=== PATIENT | female | born 1950 | race Caucasian/White ===

== ENCOUNTER 2024-05-10 10:47 | Emergency (ER) | payer MEDICARE, SELFPAY ==
[2024-05-10 11:02] VITALS: BP 167/76; PULSE 59; RESP 16; TEMP 36.3; O2SAT 96; BMI 31.6
--- NOTE | 2024-05-10 11:24 | ED.GENADULT ---
HPI - General Adult General Chief complaint: Back Injury/Pain Stated complaint: RT sided sciatic pain Time Seen by Provider: 05/10/24 10:51 History of Present Illness HPI narrative: This is a 74-year-old female comes in with pain in her right buttock extending down the posterior aspect of her right leg toward her knee. She states that she woke up with these symptoms yesterday. She reports that she did have some sciatica symptoms of about 20 years ago. She does not report any injury event or strenuous activity recently. Her health is otherwise stable. Related Data Home Medications ?Medication ?Instructions ?Recorded ?Confirmed dicyclomine 20 mg tablet 20 mg PO QID 05/10/24 05/10/24 fluocinonide 0.05 % topical gel 1 applic topical QID 05/10/24 05/10/24 folic acid 1 mg tablet 1 mg PO DAILY 05/10/24 05/10/24 hydrochlorothiazide 12.5 mg tablet 12.5 mg PO DAILY 05/10/24 05/10/24 losartan 50 mg tablet 50 mg PO DAILY 05/10/24 05/10/24 lovastatin 20 mg tablet 20 mg PO QPM 05/10/24 05/10/24 metformin 500 mg tablet,extended 1,000 mg PO DAILY 05/10/24 05/10/24 release 24 hr methotrexate sodium 2.5 mg tablet 15 mg PO .thursday05/10/24 05/10/24 sertraline 25 mg tablet 25 mg PO QAM 05/10/24 05/10/24 triamcinolone acetonide 0.1 % applic topical 3XD 05/10/24 topical cream Previous Rx's ?Medication ?Instructions ?Recorded cyclobenzaprine 10 mg tablet 10 mg PO TID #15 tabs 05/10/24 ketorolac 10 mg tablet 10 mg PO Q8H 5 days #15 tabs 05/10/24 methylprednisolone 4 mg tablets in See Rx Instructions PO .COMPLEX 05/10/24 a dose pack (Medrol (Sy)) #21 ea Allergies Allergy/AdvReac Type Severity Reaction Status Date / Time lisinopril AdvReac Intermediate Cough Verified 05/10/24 10:58 Review of Systems Narrative: Constitutional: No fevers, no weight gain or loss. Eyes: No discharge. No vision changes. HENT: No congestion, no sore throat, no ear pain. Cardiovascular: No chest pain, no palpitations. Respiratory: No shortness of breath, no wheezes, no cough. Gastrointestinal: No abdominal pain, no vomiting, no diarrhea. Genitourinary: No dysuria, no hematuria. Musculoskeletal: Normal range of motion. Sciatica pain in the right buttock and right posterior upper leg. Skin: No rashes, no pruritis. Neurological: No dizziness, weakness, sensory change, speech change. Endo/Heme/Allergies: No bruising or bleeding. No polydipsia. Pysch: no suicidality, no anxiety, no insomnia. All other systems reviewed and are negative. [facility] Social History Smoking Status: Never smoker Do you use any of these nicotine containing products: None Second hand tobacco smoke exposure: No How often do you have a drink containing alcohol: monthly or less How many standard drinks containing alcohol do you have on a typical day: 1 or 2 AUDIT-C Alcohol total score: 1 Non-prescribed substance use: denies use service: No Exam Narrative: Exam Narrative: Constitutional: Well-developed, well-nourished, no acute distress. HEENT: Normocephalic, atraumatic. Neck: Normal range of motion. Nontender. Supple. Heart: Intact distal pulses. Lungs: No chest discomfort. No wheezes, rhonchi, or rales. Abdomen: Nontender. Back: Normal range of motion. Extremities: Normal range of motion. No injury. Skin: Intact. No rash. Warm. No erythema or pallor. Neurologic: No altered sensation. No weakness. Alert and oriented. Psychiatric: No suicidality. No anxiety or depression. No insomnia. Nursing notes and vitals signs are reviewed. Const: Vital Signs, click to edit/add: Vital Signs - 24 hr 05/10/24 11:02 Temperature 97.3 F L Pulse Rate [Pulse Oximeter] 59 L Respiratory Rate 16 Blood Pressure [Ri ght Upper Arm] 167/76 H Pulse Oximetry 96 Oxygen Delivery Me thod Room Air Course Vital Signs Vital signs: Initial Vital Signs Temperature 97.3 F L 05/10/24 11:02 Temperature Source Temporal Artery Scan 05/10/24 11:02 Pulse Rate 59 L 05/10/24 11:02 Respiratory Rate 16 05/10/24 11:02 Blood Pressure 167/76 H 05/10/24 11:02 Blood Pressure Mean 106 H 05/10/24 11:02 Blood Pressure Position Sitting 05/10/24 11:02 Pulse Oximetry 96 05/10/24 11:02 Oxygen Delivery Method Room Air 05/10/24 11:02 Vital Signs Temperature 97.3 F L 05/10/24 11:02 Pulse Rate 59 L 05/10/24 11:02 Respiratory Rate 16 05/10/24 11:02 Blood Pressure 167/76 H 05/10/24 11:02 Pulse Oximetry 96 05/10/24 11:02 Oxygen Delivery Method Room Air 05/10/24 11:02 Temperature 97.3 F L 05/10/24 11:02 Pulse Rate 59 L 05/10/24 11:02 Respiratory Rate 16 05/10/24 11:02 Blood Pressure 167/76 H 05/10/24 11:02 Pulse Oximetry 96 05/10/24 11:02 Oxygen Delivery Method Room Air 05/10/24 11:02 Medical Decision Making MDM Narrative Medical decision making narrative: This 74-year-old female comes in with symptoms typical of sciatica. She does not have any recent injury event or strenuous activity that would mandate imaging studies. Her symptoms began yesterday morning. She does not report any back pain. Her pain is located primarily in her right buttock and right posterior upper leg. She does have type 2 diabetes. I did state the potential benefit of a steroid but indicated that this would cause her blood glucose to increase for a while. She did received prescription for Medrol Dosepak, Toradol, and Flexeril. Discharge Plan Discharge Clinical Impression: Sciatica Patient Disposition: Home, Self-Care Condition: Stable Additional Instructions: Take medications as prescribed and needed. Increase activity as tolerated. Follow up with MD return if worsening. Prescriptions: New cyclobenzaprine 10 mg tablet 10 mg PO TID Qty: 15 0RF ketorolac 10 mg tablet 10 mg PO Q8H 5 Days Qty: 15 0RF methylprednisolone [Medrol (Sy)] 4 mg tablets,dose pack See Rx Instructions .ROUTE .COMPLEX Qty: 21 0RF Rx Instructions: orally per package directions No Action losartan 50 mg tablet 50 mg PO DAILY methotrexate sodium 2.5 mg tablet 15 mg PO .thursday lovastatin 20 mg tablet 20 mg PO QPM metformin 500 mg tablet extended release 24 hr 1,000 mg PO DAILY hydrochlorothiazide 12.5 mg tablet 12.5 mg PO DAILY fluocinonide 0.05 % gel 1 applic topical QID triamcinolone acetonide 0.1 % cream topical 3XD dicyclomine 20 mg tablet 20 mg PO QID sertraline 25 mg tablet 25 mg PO QAM folic acid 1 mg tablet 1 mg PO DAILY Stand Alone Forms: MyHealth Info Instructions
== END 2024-05-10 11:45 | disposition home or self-care (01) ==
LOC: ED 12:09
PROVIDERS: Emergency Provider Emergency Medicine Emergency Medical Services
DX: M54.31 Sciatica, right side (principal)
CPT/HCPCS: 99283; 99284

== ENCOUNTER 2024-12-01 13:00 | Outpatient (RCR) | payer MEDICARE, SELFPAY ==
--- NOTE | 2024-09-27 15:17 | PT.OPEX ---
PT [place] Outpatient Eval PT [facility] Outpatient Eval Start: 09/27/24 10:15 Freq: Status: Active Protocol: Document 09/27/24 10:15 MRS (Rec: 09/27/24 15:12 MRS No Response) E-signed By Annemarie Conroy DPT Physical Therapy Outpatient Evaluation Insurance Information Recert Due Date 12/25/24 Insurance Name [employer] Medical Diagnosis Osteoarthritis R knee Treating Diagnosis M25.562 Pain in Knee Right M62.81 Muscle Weakness Imaging Report Information R Knee XR 04/02: Tricompartmental degenerative disease Referring MD Alfonso Cramer MD Subjective Preferred Name Cailin Subjective Initial subjective: Cailin has been having right knee pain for ~20 years but experienced a fall prior to and has had increased knee soreness. Cailin reports most difficulty going up and down stairs due to weakness. Cailin is independent with her mobility. Aggravating factors: stairs specifically going down stairs , getting up from floor, kneeling, weakness Alleviating factors: avoiding activities PMH: DM II, R RCR, B shoulder pain, edema, memory problem, tremor, neuropathy, OA in knees and hips, osteopenia, medication allergies, L foot fracture ~ 10 years ago Work status: retired Pt goals: strengthen knees to alleviate some of the pain [email or web address] access code: [email or web address] Pain Comments currently 0/10; at worst 8/10 going down the stairs. Date of Last Physician Visit 09/13/24 Current Work Status Retired Precautions Weight Bearing Status Full Weight Bearing Therapy Limitations/Systems Review Not Limited Objective Range of Motion LE ROM (R/L): -Knee Flx: (131/136) -Knee Ext: (2/-1) JAMESON: positive on Right for tightness and pain Strength LE Strength (R/L): -Knee Ext: R: 4/5, L: 5/5 -Knee Flex: R: 4+/5, L: 5/5 -Hip Abd: R: 4-/5, L: 4- /5 -Hip Add: R: 5/5, L: 5/5 -Hip Ext: R: 4-/5, L: 4-/5 -Hip Flx: R: 5/5, L: 5/5 Ankle Strength (R/L): deferred due to right ankle sprain Swelling (5 cm above, jt line, 5 cm below) R: 43.5cm, 41cm, 36.25cm L: 42.5cm, 38cm, 36.5cm Palpation Appears to have left pelvic upslip compared to right comparing ASIS, left foot pes planus > right foot. R patella in lateral position with decreased mobility compared to left patella Balance & Gait varus positioning with decreased heel strike on right but pt reported right ankle inversion sprain 2 weeks ago Other/Pertinent Objective Knee Ligamentous: - all negative for ligamentous involvement Knee Meniscus: -Yan?s: negative Muscle Length: - Hamstrings bilaterally ~85 degrees -JAMESON- positive on right for tightness and pain Functional Test Performed & Score LEFS: 40/80 Assessment Assessment/Impression Patient is a 74 year old male/ female presenting to physical therapy for evaluation and treatment of osteoarthritis of right knee to decrease pain and increase strength. Patient presents with impaired bilateral hip and knee strength, slightly decreased R knee ROM compared to left, right knee swelling, impaired functional mobility, and pain. These impairments are limiting the patients ability to ascend/descend stairs, kneel, and get up from the floor. Patient appears motivated to participate in PT and presents with good prognosis to improve mobility, strength, proprioception and return to functional activities with skilled physical therapy intervention. Educated patient on proper form and muscle activation throughout session in order to optimize muscle function and proper body mechanics. Primary Functional Limitations pain, weakness, muscle endurance, posture Plan of Care Rehabilitation Potential Good Physical Therapy Goals STG's to be met in 2-4 weeks: 1.) Pt will report pain at 6/ 10 or less at worst 2.) Pt will increase bilateral hip abduction strength to 4/5 or greater in order to increase hip stabilization. 3.) Pt will be independent and compliant with HEP. LTG's to be met in 8-12 weeks: 1.) Pt will report a decrease in pain to 4/10 or less at worst. 2.)Pt will demonstrate full and pain free knee ROM? 3.) Pt will demonstrate B LE strength at 4+/5 or greater. 4.) Pt will be able to descend stairs without pain. 5.) Pt will have a decrease in right knee swelling by 2 cm or more at joint line. Coordination/Communication With Referral Source Treatment Plan/Direct Interventions Ice/Cold/Vasopneumatic, Neuromuscular Re-ed, Therapeutic Activities, Therapeutic Exercises Frequency/Duration 1-2x/week for 8-12 weeks Patient Will Be Discharged From Therapy Completion of LTG(s),Skills Plateau,Independent w/HEP, Independently Progressing Evaluation Billing Untimed Code Treatment Minutes 35 PT Eval No Charge No Complexity Low Certification Information Initial Certification Date 09/27/24 Ending Certification Date 12/25/24 Provider Signature Required Yes Provider Signature Shows Agreement With POC & Medical Necessity Physician NPI Number Write NPI# Here Physician Comment/Change : Physician Signature & Date Requested Please Sign/Date Here
== END 2025-03-17 07:31 | disposition home or self-care (01) ==
PROVIDERS: Visit Provider Orthopaedic Surgery Sports Medicine
DX: M17.11 Unilateral primary osteoarthritis, right knee (principal); M62.81 Muscle weakness (generalized); Z51.89 Encounter for other specified aftercare
CPT/HCPCS: 97110; 97112; 97161; 97530

== ENCOUNTER 2025-01-22 08:41 | Emergency (ER) | payer MEDICARE, SELFPAY ==
--- OUTSIDE RECORDS SUMMARY | 2021-02-01 04:01 | XMS_ITS | Continuity of Care Document ---
Author Organization [facility] Address [address] [address] [place] [address] Phone Care Team Providers Care Supervisor Weaving Name Role Phone Yuniel Hanley CRNA Unavailab le Allergies, Adverse Reactions, Alerts Substance Reaction Status Criticality lisinopril cough Active No Information Medications Medication Instructions Dosage Effective Dates (start - stop) Status Comments sertraline 25 mg tablet take 1 tablet by oral route every day 25 MG - Active triamcinolone acetonide 0.1 % topical cream apply by topical route every day a thin layer to the affected area(s) Not Available - Active halobetasol propionate 0.05 % topical cream apply by topical route every day a thin layer to the affected area(s) do not exceed 50 grams per week or 2 weeks duration 0.00 - Active Calcium 500 + D 500 mg (1,250 mg)-400 unit tablet take 3 by oral route every day 3 - Active Fish Oil 1,000 mg (120 mg-180 mg) capsule take 1 by Oral route every day 1 - Active folic acid 1 mg tablet take 1 tablet by oral route every day 1 MG - Active metformin 500 mg tablet take 2 Tablet by ORAL route every day 1000 MG - Active methotrexate sodium 2.5 mg tablet take 5 Tablet by oral route every week 12.5 MG - Active omeprazole 20 mg tablet,delayed release take 1 Tablet by Oral route every day as needed 1 Tablet - Active clobetasol 0.05 % topical cream apply by topical route 2 times every day as needed to affected areas Not Available - Active lovastatin 20 mg tablet take 1 tablet by oral route every day with the evening meal 20 MG - Active losartan 50 mg Tab take 1 tablet (50MG) by oral route every day 50 MG - Active Enteric Coated Aspirin 81 mg Tab, Delayed Release one tablet a day - Active hydrochlorothiazide 25 mg Tab one tablet a day - Active dicyclomine 20 mg tablet take 1 tablet b y oral route 4 times every day 20 MG - No Longer Active mometasone 0.1 % topical cream apply by topical route every day a thin layer to the affected area(s) 0.00 - No Longer Active ammonium lactate 12 % topical cream apply by Topical route as needed Not Available - No Longer Active Procedures Procedure Date Colonoscopy Flex; W/remov Les- Colonoscopy Flex; W/bx 1/mx Ugi Endo; W/bx 1/mx Level Iv-surg Path Gross/micro 21 Telephone E&M II 11-20 Min MD BLANCA Telephone E&M I 5-10 Min MD BLANCA Telephone E&M II 11-20 Min MD BLANCA Telephone E&M II 11-20 Min MD BLANCA Offic/outpt E&m Estab Mod-nm 4 19 Offic/outpt E&m Estab Mod-nm 4 19 Offic/outpt E&m Estab Mod-nm 4 18 Offic/outpt E&m Estab Mod-nm 4 18 Offic/outpt E&m Estab Mod-[facility] 18 Offic/outpt E&m Estab Mod-nm 4 17 Offic/outpt E&m Estab Mod-nm 4 17 Offic/outpt E&m Estab Mod-nm 2 17 Offic/outpt E&m Estab Mod-hi 4 17 Offic/outpt E&m Estab Mod-hi 4 16 Offic/outpt E&m Estab Mod-hi 4 16 Offic/outpt E&m Estab Mod-hi 2 16 Offic/outpt E&m Estab Mod-hi 4 16 Offic/outpt E&m Estab Mod-hi 2 16 Breath Test Fructose Offic/outpt E&m Estab Mod-hi 2 15 Breath Kit Given Offic/outpt E&m Estab Mod-hi 2 15 Colonoscopy Flex; W/bx 1/mx Level Iv-surg Path Gross/micro 15 Offic/outpt E&m Estab Mod-hi 2 15 Routine Serum Collection Gg; Iga, Igd, Igg, Igm, Ea Bld Ct; Hg/pltlt Ct Auto/compl 15 Comp Metabolic Panel Medical nutrition therapy, initial, each 15 minutes Offic/outpt E&m Estab Low-mod 4 Colonoscopy Flex; Dx (apr Pro) 14 Offic/outpt E&m Estab Mod-hi 2 14 Offic/outpt E&m Estab Mod-hi 2 13 Offic/outpt E&m Estab Mod-hi 2 11 G8447 Sigmoidoscopy Flex; W/bx 1/mx 1 Level Iv-surg Path Gross/micro 11 Offic/outpt E&m Estab Mod-hi 2 10 [id number] Offic Cons New/estab Mod 40 Mi 09 [id number] Colonoscopy Flex; Dx (apr Pro) 08 Advance Directives Directive Yes / No Effective Date File Name No Information Encounters Encounter Description Practice Location Reason(s) For Visit Diagnoses Date Provider Providers Copied on Encounter [facility], [address] [address], [place], [id number], [place] tel:[phone] [facility] No Information 1 Talon Brice. [address] [facility], [facility] [address], [place], [place], [address], [place]. tel:[phone] Referring Provider: Shawn Ramsey MD, [address] [facility] [address], [place], [address] . tel:[phone] [facility], [address] [address], [place], [id number], [place] tel:[phone] [facility] Diarrhea, unspecifiedIr ritable bowel syndrome with diarrheaGastr opathyColorec gilberto polypsDiverti culosisDiarrh ea, unspecifiedPe rsonal history of colonic polypsBenign neoplasm of descending colonDvrtclos of lg int w/o perforation or abscess w/o bleedingDiarr hea, unspecifiedDv rtclos of lg int w/o perforation or abscess w/o bleedingPerso nal history of colonic polyps 1 Braulio Escobar. [address] [facility], [address], [id number], [place]. tel:[phone] Referring Provider: Referral Self, USE FOR SELF REFERRALS. Telephone E&M II 11-20 Min BLANCA [facility], [address] [address], [place], [id number], [place] tel:[phone] [facility] GI Symptoms or Concerns (chief complaint) Diarrhea, unspecified type 1 Sanjay Núñez. [address] [facility], [facility] [address], [place], [place], [address], [place]. tel:[phone] Referring Provider: Referral Self, USE FOR SELF REFERRALS. [facility], [address] [address], [place], [address], [place] tel:[phone] [facility] No Information 1 Abdirizak Rios. [address] [facility], [facility] [address], [place], [address], [place]. tel:[phone] Telephone E&M I 5-10 Min BLANCA [facility], [address] [address], [place], [id number], [place] tel:[phone] [facility] GI Symptoms or Concerns (chief complaint) Diarrhea, unspecified typeIrritable bowel syndrome with diarrhea Fe-0 1 Sanjay Núñez. [address], [id number], [place]. tel:[phone] Referring Provider: Referral Self, USE FOR SELF REFERRALS. Telephone E&M II 11-20 Min BLANCA [facility], [address] [address], [place], [id number], [place] tel:[phone] [facility] Additional Narrative (chief complaint)C omment (chief complaint) Irritable bowel syndrome with constipationC olon cancer screening 0 Sanjay Núñez. [address] [place] [address], [id number], [place]. tel:[phone] Referring Provider: Referral Self, USE FOR SELF REFERRALS. Telephone E&M II 11-20 Min BLANCA [facility], [address] [address], [place], [address], [place] tel:[phone] [facility] GI Symptoms or Concerns (chief complaint) Irritable bowel syndrome with diarrhea 0 Sanjay Núñez. [facility] [address], [address], [place]. tel:[phone] Referring Provider: Referral Self, USE FOR SELF REFERRALS. [facility], [address] [address], [place], [address], [place] tel:[phone] [facility] No Information 0 Abdirizak Rios. [address] [facility], [address], [id number], [place]. tel:[phone] Offic/outpt E&m Estab Mod-hi 4 [facility], [address] [address], [place], [address], [place] tel:[phone] [facility] GI Symptoms or Concerns (chief complaint) Irritable bowel syndrome with diarrheaDieta ry counseling and surveillance 9 Sanjay Núñez. [address] [facility], [facility] [address], [place], [place], [address], [place]. tel:[phone] Referring Provider: Mariola Lobo, [address], [place], [address]. tel:[phone] Offic/outpt E&m Estab Mod-hi 4 [facility], [address] [address], [place], [place], [address], [place] tel:[phone] [facility] GI Symptoms or Concerns (chief complaint) Irritable bowel syndrome with diarrheaDieta ry counseling and surveillanceE levated blood-pressur e reading, w/o diagnosis of htn 9 Sanjay Núñez. [address] [facility], [facility] [address], [place], [place], [address], [place]. tel:[phone] Referring Provider: Mariola Lobo, [address], [place], [address]. tel:[phone] Offic/outpt E&m Estab Mod-hi 4 [facility], [address] [address], [place], [place], [address], [place] tel:[phone] [facility] GI Symptoms or Concerns (chief complaint) Irritable bowel syndrome with diarrheaDieta ry counseling and surveillance 8 Sanjay Núñez. [address] [facility], [address], [place], [place], [address], [place]. tel:[phone] Referring Provider: Referral Self, USE FOR SELF REFERRALS. Offic/outpt E&m Estab Mod-hi 4 [facility], [address] [address], [place], [place], [address], [place] tel:[phone] [facility] GI Symptoms or Concerns (chief complaint) Irritable bowel syndrome, unspecified typeDietary counseling and surveillance 8 Sanjay Núñez. [address] [facility], [facility] [address], [place], [address], [place]. tel:[phone] Referring Provider: Referral Self, USE FOR SELF REFERRALS. Offic/outpt E&m Estab Mod-hi 4 [facility], [address] [address], [place], [place], [address], [place] tel:[phone] [facility] GI Symptoms or Concerns (chief complaint) Irritable bowel syndrome with diarrhea 8 Sanjay Núñez. [address] [facility], [facility] [address], [place], [address], [place]. tel:[phone] Referring Provider: Referral Self, USE FOR SELF REFERRALS. Offic/outpt E&m Estab Mod-hi 4 [facility], [address] [address], [place], [place], [address], [place] tel:[phone] [facility] GI Symptoms or Concerns (chief complaint) Irritable bowel syndrome with diarrhea 7 Sanjay Núñez. [address] [facility], [facility] [address], [address], [place]. tel:[phone] Referring Provider: Referral Self, USE FOR SELF REFERRALS. Offic/outpt E&m Estab Mod-hi 4 [facility], [address] [address], [place], [place], [address], tel:[phone] [facility] GI Symptoms or Concerns (chief complaint) Constipation, unspecified constipation type 7 Sanjay Núñez. [address] [facility], [facility] [address], [place], [address], [place]. tel:[phone] Referring Provider: Referral Self, USE FOR SELF REFERRALS. Offic/outpt E&m Estab Mod-hi 2 [facility], [address] [address], [place], [place], [address], [place] tel:[phone] [facility] GI Symptoms or Concerns (chief complaint) Mixed irritable bowel syndromeDiarr hea, unspecified typeConstipat ion, unspecified constipation typeDietary counseling and surveillanceE levated blood-pressur e reading, w/o diagnosis of htn 7 Glynn Yuen. [address] [facility], [facility] [address], [place], [address], [place]. [phone] Referring Provider: Referral Self, USE FOR SELF REFERRALS. Offic/outpt E&m Estab Mod-hi 4 [facility], [address] [address], [place], [place], [address], [place] tel:[phone] [facility] GI Symptoms or Concerns (chief complaint) Constipation, unspecified constipation typeAbdominal pain, unspecified locationDiarr heaDietary counseling and surveillanceE levated blood-pressur e reading, w/o diagnosis of htn 7 Sanjay Núñez. [address] [facility], [facility] [address], [place], [address], [place]. [phone] Referring Provider: Referral Self, USE FOR SELF REFERRALS. Offic/outpt E&m Estab Mod-hi 4 [facility], [address] [address], [place], [place], [address], [place] tel:[phone] [facility] GI Symptoms or Concerns (chief complaint) Irritable bowel syndrome with diarrhea 6 Sanjay Núñez. [address] [facility], [facility] [address], [place], [address], [place]. [phone] Referring Provider: Mariola Lobo, [address] [place], [address]. tel:[phone] Offic/outpt E&m Estab Mod-hi 4 [facility], [address] [address], [place], [place], [address], [place] tel:[phone] [facility] GI Symptoms or Concerns (chief complaint) Irritable bowel syndrome, unspecified type 6 Sanjay Núñez. [address] [facility], [facility] [address], [place], [address], [place]. [phone] Referring Provider: Mariola Lobo, [address] , [place], [address]. tel:[phone] Offic/outpt E&m Estab Mod-hi 2 [facility], [address] [address], [place], [place], [address], [place] tel:[phone] [facility] GI Symptoms or Concerns (chief complaint) DiarrheaDieta ry counseling and surveillanceE levated blood-pressur e reading, w/o diagnosis of htn 6 Sanjay Núñez. [address] [facility], [facility] [address], [place], [address], [place]. tel:[phone] Referring Provider: Mariola Lobo, [address], [place], [address]. tel:[phone] Offic/outpt E&m Estab Mod-hi 4 [facility], [address] [address], [place], [place], [address], [place] tel:[phone] [facility] GI Symptoms or Concerns (chief complaint) DiarrheaGener alized abdominal painIrritable bowel syndrome with diarrhea 6 Sanjay Núñez. [address] [facility] [address], [place], [address], [place]. tel:[phone] Referring Provider: Mariola Lobo, [address] [facility] [address], [place], [address]. tel:[phone] Offic/outpt E&m Estab Mod-hi 2 [facility], [address] [address], [place], [place], [address], [place] tel:[phone] [facility] GI Symptoms or Concerns (chief complaint) Irritable bowel syndrome with diarrheaDieta ry counseling and surveillanceE levated blood-pressur e reading, w/o diagnosis of htn 6 Edstrom [facility]AVE Yanez. [address] [facility], [facility] [address], [place], [address], [place]. tel:[phone] Referring Provider: Mariola Lobo, [address] , [place], [address]. tel:[phone] [facility], [address] [address], [place], [address], [place] tel:[phone] [facility] No Information 6 Edstrlionel Yanez. [address] [facility], [facility] [address], [place], [address], [place]. [phone] Offic/outpt E&m Estab Mod-hi 2 [facility], [address] [address], [place], [address], [place] tel:[phone] [facility] GI Symptoms or Concerns (chief complaint) Irritable bowel syndrome with constipation and diarrhea Edstrlionel Yanez. [address] [facility] [address], [place], [address], [place]. tel:[phone] Referring Provider: Mariola Lobo, [address] [place], [address]. tel:[phone] [facility], [address] [address], [place], [place], [address], [place] tel:[phone] [facility] No Information 5 Edstrlionel ACOSTA Renata. [address] [place] [address], [address], [address], [place]. tel:[phone] Referring Provider: Referral Self, USE FOR SELF REFERRALS. Offic/outpt E&m Estab Mod-hi 2 [facility], [address] [address], [place] [facility] [place], [address], [place] tel:[phone] [facility] GI Symptoms or Concerns (chief complaint) DiarrheaDieta ry counseling and surveillanceE ssential (primary) hypertension 5 Marlotrlionel Yanez. [facility], [facility] [address], [place], [address], [place]. tel:[phone] Referring Provider: Mariola Lobo, [address] [facility] [address], [place], [address]. tel:[phone] [facility], [address] [address], [place], [address], [place] tel:[phone] [facility] Diarrhea, unspecifiedCh deo in bowel habitBenign neoplasm of cecumChange in bowel habitDiarrhea , unspecified 5 Gabriella Jimenez. [address] [facility], [address], [place], [place], [address], [place]. tel:[phone] Referring Provider: Referral Self, USE FOR SELF REFERRALS. [facility], [address] [address], [place], [address], [place] tel:[phone] [facility] Diarrhea 5 No Information Referring Provider: Mariola Lobo, [address], [place], [address]. tel:[phone] [facility], [address] [address], [place], [address], [place] tel:[phone] [facility] Change in bowel habit 5 No Information Referring Provider: Referral Self, USE FOR SELF REFERRALS. Offic/outpt E&m Estab Mod-hi 2 [facility], [address] [address], [place], [address], [place] tel:[phone] [facility] GI Symptoms or Concerns (chief complaint) Change in bowel habitsIrritab le bowel syndrome with constipationD ietary Surveil/couns elElev Bl Pres W/o HypertnElevat ed blood-pressur e reading, without diagnosis of hypertensionD ietary counseling and surveillanceI rritable bowel syndrome without diarrheaChang e in bowel habit 5 No Information Referring Provider: Referral Self, USE FOR SELF REFERRALS. [facility], [address] [address], [place], [address], [place] tel:[phone] [facility] Irritable Bowel SyndromeChang e In Bowel Habits 4 Josep Kelly. [address] [facility], [address], [place], [place], [address], [place]. tel:[phone] Referring Provider: Mariola Lobo, [address] , [place], [address]. tel:[phone] Offic/outpt E&m Estab Low-mod [facility], [address] [address], [place], [address], [place] tel:[phone] [facility] Constipation UnspecifiedCo nstipation UnspecifiedIr ritable Bowel Syndrome 4 No Information Referring Provider: Mariola Lobo, [address], [place], [address]. tel:[phone] [facility], [address] [address], [place], [address], [place] tel:[phone] [facility] No Information 4 No Information Referring Provider: Mariola Lobo, [address] , [place], [address]. tel:[phone] Offic/outpt E&m Estab Mod-hi 2 [facility], [address] [address], [place], [address], [place] tel:[phone] [facility] Irritable Bowel SyndromeIrrit able Bowel SyndromeConst ipation UnspecifiedPe rsonal History Colon Polyps 4 No Information Referring Provider: Mariola Lobo, [address] , [place], [address]. tel:[phone] Offic/outpt E&m Estab Mod-hi 2 [facility], [address] [address], [place], [address], [place] tel:[phone] [facility] Irritable Bowel Syndrome (chief complaint) Irritable Bowel SyndromeIrrit able Bowel SyndromeAbdom inal Pain, UnspecifiedCo nstipation Unspecified 3 No Information Referring Provider: Mariola Lobo, [address] , [place], [address]. tel:[phone] Offic/outpt E&m Estab Mod-hi 2 [facility], [address] [address], [place], [address], [place] tel:[phone] [facility] Follow up from Flex sig (chief complaint)A bdominal pain (chief complaint) Irritable Bowel SyndromeIrrit able Bowel Syndrome 1 No Information Referring Provider: Mariola Lobo, [address], [place], [address]. tel:[phone] [facility], [address] [address], [place], [address], [place] tel:[phone] [facility] Change In Bowel HabitsAbdomin al Pain, UnspecifiedCh deo In Bowel HabitsAbdomin al Pain, Unspecified 1 Randell Lopez. [address] [place] [address], [facility] [address], [place], [address], [place]. tel:[phone] Referring Provider: Mariola Lobo, [address], [place], [address]. tel:[phone] Offic/outpt E&m Estab Mod-hi 2 [facility], [address] [address], [place], [place], [address], [place] tel:[phone] [facility] Abdominal pain (chief complaint) Irritable Bowel Syndrome 0 Randell Lopez. [address] [facility], [facility] [address], [place], [address], [place]. tel:[phone] Referring Provider: Mariola Lobo, [address], [place], [address]. tel:[phone] Offic Cons New/estab Mod 40 Mi [facility], [address] [address], [place], [address], [place] tel:[phone] [facility] Irritable Bowel Syndrome 9 Randell Lopez. [address] [place] [address], [facility] [address], [place], [address], [place]. tel:[phone] [facility], [address] [address], [place], [place], [address], [place] tel:[phone] [facility] Colon Cancer ScreeningPers onal History Colon Polyps 8 Javier Mendoza. [address] [facility], [facility] [address], [place], [place], [address], [place]. tel:[phone] Family History Family Member Type Diagnosis Age At Onset Mother Problem (finding) congestive heart failur e Father Problem (finding) Brother Problem (finding) Alive and well Brother Problem (finding) GERD Brother Problem (finding) No Family hist ory of No history of Arthritis Mother Problem (finding) Arthritis Sister Problem (finding) Alive and well Immunizations Vaccine Date Status Comments SARS-COV-2 (COVID-19) vaccin e, mRNA, spike protein, LNP, preservative free, 30 mcg/0.3mL dose administered Note: [facility] bi-direct ional interface ; Source: Other Registry SARS-COV-2 (COVID-19) vaccin e, mRNA, spike protein, LNP, preservative free, 30 mcg/0.3mL dose administered Note: [facility] bi-direct ional interface ; Source: Other Registry influenza, seasonal vaccine, quadrivalent, adjuvanted, .5mL dose, preservative free administered Note: [facility] bi-di rectional interface ; Source: Other Registry zoster vaccine recombinant administered N ote: [facility] bi-directional interface ; Source: Other Registry Seasonal trivalent influenza vaccine, adjuvanted, preservative free administered Note: [facility] bi-direct ional interface ; Source: Other Registry zoster vaccine recombinant administered N ote: [facility] bi-directional interface ; Source: Other Registry Seasonal trivalent influenza vaccine, adjuvanted, preservative free administered Note: [facility] bi-direct ional interface ; Source: Other Registry Influenza, injectable, MDCK, preservative free Flucelvax Quad 2017-2018Y administered Source: Other Provid er Seasonal trivalent influenza vaccine, adjuvanted, preservative free administered Note: [facility] bi-direct ional interface ; Source: Other Registry Influenza, injectable, quadrivalent, preservative free, 3 yrs or older administered Note: Invalid docum ented admin date was . ; Source: Other Provider tetanus and diphtheria toxoi ds, adsorbed, preservative free, for adult use (5 Lf of tetanus toxoid and 2 Lf of diphtheria toxoid) administered Note: [facility] bi-direct ional interface ; Source: Other Registry Influenza, injectable, quadrivalent, preservative free, 3 yrs or older administered Source: Other Provi maribel influenza, high dose seasona l, preservative-free administered Note: [facility] bi-direct ional interface ; Source: Other Registry influenza, high dose seasona l, preservative-free administered Note: [facility] bi-direct ional interface ; Source: Other Registry Prevnar administered Note: [facility] bi-d irectional interface ; Source: Other Registry Pneumococcal conjugate PCV administere d Source: Other Provider Pneumo (2 yrs or older)(PPV) administered Source: Other Provider Influenza virus vaccine, injectable, quadrivalent, split virus, preservative free, 3 years or older Fluarix Quad administered Source: Other Provid er influenza, high dose seasona l, preservative-free administered Note: [facility] bi-direct ional interface ; Source: Other Registry Influenza virus vaccine, injectable, quadrivalent, split virus, preservative free, 3 years or older Fluarix Quad administered Source: Other Provid er zoster vaccine, live administered Note: M [facility] bi-directional interface ; Source: Other Registry Zoster administered Source: Other P rovider Pneumovax 23 administered Note: [facility] bi-d irectional interface ; Source: Other Registry Pneumo (2 yrs or older)(PPV) administered Source: Other Provider Influenza, seasonal, injectable, preservative free administered Note: [facility] bi-directional interface ; Source: Other Registry Novel [id number], all formulations administered Note: [facility] bi-direct ional interface ; Source: Other Registry Influenza, seasonal, injectable administe red Note: [facility] bi- directional interface ; Source: Other Registry tetanus toxoid, reduced diphtheria toxoid, and acellular pertussis vaccine, adsorbed administered Note: [facility] bi-direct ional interface ; Source: Other Registry Influenza, seasonal, injectable administe red Note: [facility] bi- directional interface ; Source: Other Registry Payers Payer name Insurance type Covered republican ID Authorlisa parra(s) [employer] MB [id number] Social History Type Description Quantity Date Captured Comments Sex Female Smoking Status No Information Chief Complaint And Reason For Visit No Information Reason For Referral Reason For Referral No Information Plan Of Treatment Date Type Action Status Goal Lifestyle education regardin g diet completed Goal Lifestyle education regardin g diet completed Goal Lifestyle education regardin g diet completed Goal Lifestyle education regardin g diet completed Goal Lifestyle education regardin g diet completed Goal Lifestyle education regardin g diet completed Goal Lifestyle education regardin g diet completed Goal Lifestyle education regardin g diet completed Goal Lifestyle education regardin g diet completed Goal Lifestyle education regardin g diet completed Referral Ordered: EGD Appointment date/timeframe: -today ordered Referral Ordered: referred to pelvic floor center Today Appointment date/timeframe: 09/02/2017 ordered Referral Ordered: follow-up visit with Niya Grace NP--[facility] 6-8 weeks Appointment date/timeframe: 6-8 weeks ordered Referral Ordered: Xray Abdomen; Limited (AP View Only) (KUB) Appointment date/timeframe: 07/10/2016 ordered Referral Ordered: Breath Test Fructose Appointment date/timeframe: 07/26/2015 ordered Referral Ordered: Colonoscopy Appointment date/timeframe: 06/01/2015 ordered Referral Ordered: follow-up visit with Leticia Moody RD low FODMAP diet 6 Weeks Appointment date/timeframe: 03/06/2014 ordered Future Order: Lab Order C diffic ile Toxin Gene BECCA ([id number]), Sent on: Sent History Of Present Illness Encounter Date Complaint History Of Prese nt Illness GI Symptoms or Concerns Cailin pak is a 70-year-old female who is present today for a telephone consult. She has verified her birthdate, address and has consented to this visit. 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 She has been using imodium daily and will sometimes have a day without a bowel movement. She typically has multiple bowel movements every morning then she is fine for the rest of the day. A colonoscopy and EGD have been ordered but delayed due to planned rotator cuff surgery January 15. Prior therapies have included colestipol, Lomotil, hyoscyamine, rifaximin, Viberzi, metronidazole. She had an abdominal x-ray January 01, 2017, which showed moderate amount of stool in the colon despite her bowel frequency. When given MiraLax, she developed significant diarrhea. Serological workup has been unremarkable including CMP, CBC, celiac panel, thyroid cascade, and stool testing. Stool for qualitative fecal fat was normal. Colonoscopy September 2014 with MAC sedation revealed a tubular adenoma, otherwise exam was normal. Random colon biopsies were normal. In 2013, she underwent CT colography due to an incomplete colonoscopy with indication of adenomatous polyps and constipation. The colonoscopy could not be completed due to difficulty passing the scope from the rectum to the transverse colon. The imaging showed no colonic polyp, mass, or stricture. No AAA. She was noted to have a small sliding esophageal hiatal hernia and gastroesophageal reflux disease. She did also have finding of a 3 mm right lung nodule, thought to be benign. Abdominal x-ray in July 2016 was consistent with constipation with overflow diarrhea. Repeat imaging in 2017 was more consistent with diarrhea. She has never had an upper endoscopy. GI Symptoms or Concerns Cailin pak is a 70-year-old female who is present today for a telephone consult. 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 She is alone, she is able to talk and has consented to this visit.Her symptoms really have not changed much over the last few years that she has been following with [facility]. She has had previous incidence of overflow diarrhea, which does not seem to be her problem at this time. She takes dicyclomine a couple of times per day when she remembers to take it and has been using Metamucil 1 tablespoon almost every day. She has bowel movements about 3 to 4 stools per day without urgency. she has been using imodium 1/2 to 1 tablet daily. Previously using one tablet daily would prevent a bowel movement the next day but currently the imodium firms up the stool. She denies significant abdominal pain. Her situation is further complicated by her poor memory. She denies black or bloody stools. She has also been informed by her insurance company that they will no longer cover dicyclomine . She was on trazodone, which she was using as needed and discontinued this over the summer.Her bowel movements are mostly in the morning. The stools can be loose to firm, but never hard. She rates her stools as a type 5 according to the Alva stool scale. She follows a lactose-free diet. She has not had any weight loss but today reports some weight gain.Prior therapies have included colestipol, Lomotil, hyoscyamine, rifaximin, Viberzi, metronidazole. She had an abdominal x-ray January 01, 2017, which showed moderate amount of stool in the colon despite her bowel frequency. When given MiraLax, she developed significant diarrhea. Serological workup has been unremarkable including CMP, CBC, celiac panel, thyroid cascade, and stool testing. Stool for qualitative fecal fat was normal. Colonoscopy September 2014 with MAC sedation revealed a tubular adenoma, otherwise exam was normal. Random colon biopsies were normal. In 2013, she underwent CT colography due to an incomplete colonoscopy with indication of adenomatous polyps and constipation. The colonoscopy could not be completed due to difficulty passing the scope from the rectum to the transverse colon. The imaging showed no colonic polyp, mass, or stricture. No AAA. She was noted to have a small sliding esophageal hiatal hernia and gastroesophageal reflux disease. She did also have finding of a 3 mm right lung nodule, thought to be benign. Abdominal x-ray in July 2016 was consistent with constipation with overflow diarrhea. Repeat imaging in 2017 was more consistent with diarrhea. She has never had an upper endoscopy.A colonoscopy and upper endoscopy were ordered for symptoms of diarrhea. She would like to wait until after her rotator cuff repair. Additional Narrative Comment Cailin Trejo is a 70-year-old female who is present today for a telephone consult. 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 She is alone, she is able to talk and has consented to this visit.Her symptoms really have not changed much over the last few years that she has been following with [facility]. She has had previous incidence of overflow diarrhea, which does not seem to be her problem at this time. She takes dicyclomine a couple of times per day when she remembers to take it and has been using Metamucil 1 tablespoon almost every day. She has bowel movements about 6 to 7 stools per day with some urgency. She will use Imodium when the stools become more loose and then may go a day without a bowel movement, but then her baseline bowel pattern returns. She denies significant abdominal pain. Her situation is further complicated by her poor memory. She denies black or bloody stools. She has also been inf GI Symptoms or Concerns Cailin pak is a 70-year-old female who presents today as a telephone consult. She has verified her date and address. She has consented to this consult. She is following up with our clinic for symptoms of diarrhea-predominant irritable bowel syndrome.She has previously been seen in our [facility] and has been on dicyclomine 4 tablets daily, trazodone 50 mg daily and p.r.n. Imodium and Metamucil. Over the last few months, she has discontinued the trazodone, feeling like she was taking too many medications and has decreased the dicyclomine down to 20 mg t.i.d. She reports that with these adjustments, she has been having more periods of abdominal pain. She will only use Imodium when she is having several loose stools in a day and at that time, she will also take Metamucil, which seems to help.Her baseline bowel pattern is several bowel movements per day, mostly in the morning. The stools are loose, never hard, some are formed. She rates them as a type 5 according GI Symptoms or Concerns Cailin pak is a 69-year-old female who returns to the [facility] for ongoing management of diarrhea-predominant bowel syndrome with associated symptoms of urgency and abdominal cramping and previous history of fecal incontinence.She presents to the clinic today reporting that she is doing somewhat better, but still symptomatic. She has been taking dicyclomine 20 mg 4 times daily and hyoscyamine as needed when she really has not needed it too much. Most recently, she does bring in a bowel diary and appears she has diarrheal stools about 3 to 4 per day, mostly in the morning. She rates her stool consistency most often type 6 to 7 and occasionally a type 5. There is no fecal incontinence. She does take colestipol at noontime. She is on trazodone at bedtime. She has not tried any elimination diets as of yet. Her weight has been stable and her mentation is much better at this visit. She has been on a medication to help with her memory.She reports using liquid Imodium intermitte GI Symptoms or Concerns Cailin pak is a 68-year-old female who returns to the [facility] for ongoing management of diarrhea predominant irritable bowel syndrome with associated symptoms of urgency and abdominal cramping, previous history of fecal incontinence.She presents today reporting that since she was seen in the clinic in May of 2018, she has had no further incidence of fecal incontinence. She is having 2 to 3 bowel movements per day. They are not urgent. She feels this bowel pattern is tolerable. She rates her stools as type 5 to type 6 on Alva stool scale. Occasionally, she will have a type 7 stool. She has taken dicyclomine 4 times per day, 20 mg tablets. Trazodone was increased in May to 100 mg per day. She is also using liquid Imodium as needed. She reports she just takes a swallow out of the bottle a couple of times a week. She follows a lactose free diet. She is occasionally taking probiotics and Metamucil as needed. She does have periods where she will have more stool frequen GI Symptoms or Concerns Cailin pak is a 68-year-old female who returns to the [facility] for ongoing management of diarrhea predominant irritable bowel syndrome with symptoms of urgency, fecal incontinence, and abdominal cramping. Symptoms have been refractory to Lomotil, colestipol, Imodium, Metamucil, trazodone, nortriptyline, hyoscyamine, dicyclomine, and most recently an empiric trial of rifaximin with her [id number] expense of $400. She has been taking Metamucil 1 tablespoon 2 times daily and feels that this has contributed to some consistency in her stool. She has also been following a dairy-free diet with ongoing incidence.She has bowel movements about 3 to 4 times in the morning with urgency. The incidence usually lasts until noon because she is close to a bathroom. She does not have incontinence while she is at home. She rates her stools anywhere on the Alva stool scale from a 5 to 7. She does occasionally have bowel movements later in the day. Last night, she was dining out and had pr GI Symptoms or Concerns Cailin pak is a 68-year-old female who returns to the [facility] for diarrhea predominant bowel pattern with symptoms of urgency, fecal incontinence and abdominal cramping. When seen in the clinic in October 2017, , she had reported doing better on dicyclomine 20 mg three times per day, hyoscyamine as needed, Metamucil one tablespoon two times daily, and trazodone 100 mg daily. She was rating her stools on the bristol stool scale of 6 to 7. She added colestipol at noon with no change in bowel pattern. She takes one tablespoon of metamucil daily with no change. She presents today, feeling her symptoms have worsened again. The stools remain a 6 to 7 on the bristol stool scan but with urgency and frequency. She has been using imodium again, take three tablets this morning, to stop stool frequency. She has had 4 stools so far today. She may not have one tomorrow after all the imodium, she will go two to three days without a bowel movement even with small doses of liquid imodium. She denies straining with bowel movements. She complains of gas. Appetite is good, no weight loss. She denies abdominal pain now taking dicyclomine four times daily.Miralax gave her diarrhea. Hyosycamine 0.375 mg not covered by her insurance. Metronidazole did not change her symptoms. Bowel frequency is worse with stress. She has had diarrhea-predominant bowel pattern for many years. Abdominal x-ray July of 2016 was consistent with constipation, so symptoms were thought to be more constipation predominant bowel pattern with overflow diarrhea. Abdominal x-ray on January 01, 2017, showed moderate amount of stool in the colon thought to be related to possible constipation. Serological workup unremarkable including CMP, CBC, celiac serologies, thyroid cascade, and stool testing for cryptosporidium, giardia, ova and parasites and stool culture. Fecal leukocytes showed a few white blood cells in the stool. A qualitative fecal fat test was normal. Colonoscopy with MAC sedation revealed a tubular adenoma. Otherwise, the exam was normal. Random colon biopsies were normal. She had a negative fructose test and she has not noted any improvement of symptoms on a dairy-free diet. There have been no changes in weight and she denies any black or bloody stools. GI Symptoms or Concerns Cailin pak is a 67-year-old female who returns to the [facility] for diarrhea predominant bowel pattern. She presents today doing better with her previous history of bowel frequency, urgency, abdominal cramping, and even fecal incontinence. She has been taking dicyclomine 20 mg three times per day, hyoscyamine as needed, Metamucil one tablespoon two times daily, and trazodone 100 mg daily. She feels this has really helped with her bowel regulation. She is rating her stools currently on the Alva stool scale from 6 to 7 with feelings of complete evacuation. She is still bothered by frequency, sometimes having to go up to three times in the morning before she can leave the house. She notes that when she was visiting with her brother for a week in May, her bowel pattern was very normal and again earlier this month, her bowel pattern was normal for several days in a row. She correlates bowel irregularity with distress. She has tried Imodium for looser stools and then will go a d GI Symptoms or Concerns Cailin pak is a 67-year-old female, who returns to the [facility] for diarrhea-predominant bowel pattern. In fact, it is unclear to tell whether she is constipation-predominant or diarrhea-predominant. Her primary complaints are bowel frequency, urgency and abdominal cramping. There has been abdominal imaging that has suggested overflow diarrhea, but when tried to be placed on laxatives, the diarrhea just worsened. She has had problems with fecal incontinence in the past, but this has now resolved since she started Metamucil. She has taken one tablespoon of Metamucil two times daily. She is using dicyclomine 10 mg four times daily and hyoscyamine one to two times per week for breakthrough pain. This seems to help manage her symptoms very well. She continues to have bowel frequency up to seven or eight bowel movements per day. She usually has more frequency in the morning and will be unable to leave the house till she has had five or six trips to the bathroom. Sometimes, she will h GI Symptoms or Concerns Patient is a 67-year-old female who present for follow up of her irritable bowel symptoms. Patient has been thought to be diarrhea predominant in the past with bowel frequency, fecal incontinence, urgency, and abdominal cramping. However, abdominal x-ray done in July 2016 was consistent with constipation, so symptoms were then thought to be more consistent with overflow diarrhea. Patient was last seen in clinic on 12/24/16 where she was complaining of 5-6 stools per day. Plan was for patient to have XR to assess for stool, use imodium 1/2 tablet daily if there was no evidence of constipation on XR, increase metamucil to twice daily, and use hyoscyamine as needed for abdominal pain. Patient had abdominal XR done on 01/01/17 which showed moderate amount of stool in the colon thought to be related to possible constipation. Patient was instructed to discontinue trazodone due to possibility of this contributing to her constipation. Patient returns today stating that there has not been much change in her bowel habits since she was last seen in clinic ~3 months ago. She would like to have better control over her stools. She reports having about 4 BMs per day but notes there are days where she has up to 7 BMs per day. Most BMs are all in the morning before noon. She cannot correlate stools to any particular triggers such as foods or stress. Endorses incomplete evacuation at times and increased flatulence in the morning. She has been documenting her stool consistency using the Alva stool chart since 01/12/17 and brings this in to clinic to show today. Using the scale, it appears her stools were rated mostly 4s in January but have became more loose since then rated at mostly 5s and 6s. Patient has been trying to take metamucil twice daily but states she often forgets the evening dose due to falling asleep on the couch. She continues to take trazodone every night. Patient takes imodium 1 to 2 tablets about once per week when she has plans of leaving the house but states it is hard to tell if she notices improvement when she takes this. She takes dicyclomine 10 mg four times per day. She has also used hyoscyamine approximately 2 times over the past 3 months as she did not realize they were in the same drug class - states she took the additional hyoscyamine when she was experiencing abdominal cramping. She denies dry eyes or blurred vision and does not have a hx of glaucoma. Unfortunately, patient's mother on 02/11/17 and they just had her burial service last week. Patient has been feeling more depressed since then and has noted ~5 pound weight gain due to her stress level. Denies hematochezia, melena, fecal urgency or incontinence, straining to have BM, nausea, vomiting. Patient has been seen on multiple different occasions in the past for constipation predominant irritable bowel syndrome. Workup has included unremarkable CBC, CMP, celiac serology, thyroid cascade profile, stool testing including Cryptosporidium, Giardia, ova parasites, and stool culture which have all been negative. Fecal leukocytes showed a few white blood cells in the stool. A quality of fecal fat test was normal. A subsequent colonoscopy on June 01, 2015, with MAC sedation reviewed a tubular adenoma otherwise the exam was normal. Random colon biopsies were normal. She had a negative fructose breath test and she had not noted any improvement on a dairy free diet.Patient has been diagnosed with depression in the past. She underwent evaluation and visits with the psychiatrist in 2014 for memory problems associated with depression. She stopped her therapy with the psychiatrist prior to October 2016. GI Symptoms or Concerns This 66- year-old female comes into the [facility] today for followup of her bowel related problems. She has a history of underlying IBS-C, determined on abdominal x-ray. At the time, she was really not aware of the degree of her constipation, was complaining more about diarrhea, which was overflow related. She is keeping her own chart now, following a successful cleanout. The chart is different from our Alva stool chart, which we will switch over to, since it was somewhat difficult to interpret her system. It appears, as if the patient generally has four to five stools per day. They start out formed and then become looser. She is currently using a combination of heaping tablespoon of Metamucil once or twice a day, depending upon how the stools are going for her. She is not having that much discomfort, and has rarely used hyoscyamine tablets for that.At this point, the patient would like some better control over the frequency of her stools.The patient had colonoscopy in O GI Symptoms or Concerns This is a 66-year-old female who presents to the [facility] for further management of her irritable bowel symptoms. She has been thought to be diarrhea predominant in the past with bowel frequency, fecal incontinence, urgency, and abdominal cramping. Recent abdominal x-ray was consistent with constipation, so symptoms more consistent with overflow diarrhea. She has a past medical history significant for depression, gastroesophageal reflux disease, hypertension, hyperlipidemia, and rheumatoid arthritis. She has also been diagnosed with type 2 diabetes. She was last seen in the clinic July 2016, when the abdominal x-ray was obtained suggesting constipation. Over the phone, she was instructed to do a bowel cleanse and start daily MiraLax in addition to her fiber. She does not recall receiving these instructions, so she presents today continuing to take one Lomotil and one Imodium up to four times a day. She is reporting ongoing loose urgent stools with urgency where she has to pullover when in the car and defecate in the ditch. She reports that she does have some soft formed stools, but most of the time she has watery stools. She denies any fecal leakage at this time. She has been taking dicyclomine. The dicyclomine seems to help with the abdominal discomfort. She will have up to seven stools in the day with excessive symptoms, but otherwise typically has one to two bowel movements a day. She has started Citrucel one tablespoon daily and as I mentioned earlier she has taken dicyclomine before meals which helps with postprandial cramping.Citalopram was discontinued due to dry mouth and dry eyes.The patient has been seen on multiple different occasions in the past for constipation predominant irritable bowel syndrome. Her symptoms began to transition to diarrhea predominant in April of 2015. Workup has included unremarkable CBC, CMP, celiac serology, thyroid cascade profile, stool testing including Cryptosporidium, Giardia, ova parasites, and stool culture which have all been negative. Fecal leukocytes showed a few white blood cells in the stool. A quality of fecal fat test was normal. A subsequent colonoscopy on June 01, 2015, with MAC sedation reviewed a tubular adenoma. Otherwise, the exam was normal. Random colon biopsies were normal. Most recently, she had a negative fructose breath test and she had not noted any improvement on a dairy free diet.She has been diagnosed with depression in the past. She underwent evaluation and visits with the psychiatrist two years ago for memory problems associated with depression. She presents today a very difficult historian. She has stopped her therapy with the psychiatrist. She is rating a quality of life of 8 out of 10. GI Symptoms or Concerns This is a 66-year-old female presenting to [facility] clinic for further management of diarrhea predominant IBS. She has a past medical history significant for depression, gastroesophageal reflux disease, hypertension, hyperlipidemia, and rheumatoid arthritis. She has been diagnosed with Type II diabetes.She is feeling well today but still with ongoing bowel irregularity. She predominantly has loose urgent stools, three to four per day. The stools are soft and formed. Some weeks, she will have one to two days with no bowel movements then other days she will have up to seven loose to watery stools. She uses dicyclomine two times daily and then on days of more frequent stools, she will take an additional dicyclomine and lomotil with relief. Her primary complaint is feelings of urgency and inability to pass stool. She carries a bucket in her car for urgent stools, last week she was unable to make it to the bucket. She rates her stools from 1 to 7 with 1 being a perfect stool. Most days she is having a 2-3 grade stool. Hyoscyamine does not work. She was taking metamucil 1 tablespoon per day but thought she could stop this when increasing the Trazodone in April. She increased from 50 to 75 mg. She sleeps good but awakens to urinate. Abdominal cramping in good.Citalopram was discontinued last fall due to dry mouth and dry eyes. Lomotil was decreased due the drying effects. The patient has been seen on multiple different occasions in the past for constipation predominant irritable bowel syndrome. Her symptoms began to transition to diarrhea predominance in April 2015. Workup has included an unremarkable CBC, CMP, celiac serology, thyroid cascade profile, stool testing including Cryptosporidium, giardia, ova and parasites and stool culture were negative. Fecal leucocytes showed a few white blood cells in the stool. A qualitative fecal fat test was normal. A subsequent colonoscopy on June 01, 2015, with MAC sedation revealed a tubular adenoma. Otherwise, exam was normal. Random colon biopsies were normal. Most recently, she has had a negative fructose breath tests. She has not noted any improvement with a dairy free diet.She has been diagnosed with depression in the past. she underwent evaluation and visits with a psychiatrist two years ago for memory problems associated with depression. She did not find benefit with the visits and stopped going.Overalll she presents today with reports of feeling better. She is rating her QOL 7/10. She is still limited in social activities afraid to go out to eat. GI Symptoms or Concerns This is a 66-year-old female presenting to [facility] clinic for further management of diarrhea predominant IBS. She has a past medical history significant for depression, gastroesophageal reflux disease, hypertension, hyperlipidemia, and rheumatoid arthritis. She has been diagnosed with Type II diabetes.She is feeling well today with a QOL of 124. She was improving when seen three months ago and is having very rare diarrhea or abdominal pain at this time. She takes dicyclomine 10 mg two times per day. She uses as needed 0.125 mg hyocyamine two times weekly. Metamucil 1 tablespoon daily has been recommended but she forgets to take this. She was not having response to imodium and Lomotil was added. She is now taking two imodium two times per day and one lomotil two times per day. SHe is now having formed stools almost daily with some looser stools maybe one time per week. She has days without a bowel movement as well. She does not feel constipated. She rates her stools from 1 to 7. 1 being a perfectly formed stool and 7 being very loose. She is often 2 to 3. Trazodone was increased to 50 mg at bedtime. She is going to have a hysterectomy soon. Citalopram was discontinued last fall due to dry mouth and dry eyes. The patient has been seen on multiple different occasions in the past for constipation predominant irritable bowel syndrome. Her symptoms began to transition to diarrhea predominance in April 2015. Workup has included an unremarkable CBC, CMP, celiac serology, thyroid cascade profile, stool testing including Cryptosporidium, giardia, ova and parasites and stool culture were negative. Fecal leucocytes showed a few white blood cells in the stool. A qualitative fecal fat test was normal. A subsequent colonoscopy on June 01, 2015, with MAC sedation revealed a tubular adenoma. Otherwise, exam was normal. Random colon biopsies were normal. Most recently, she has had a negative fructose breath tests. She has not noted any improvement with a dairy free diet.She has been diagnosed with depression in the past. she underwent evaluation and visits with a psychiatrist two years ago for memory problems associated with depression. She did not find benefit with the visits and stopped going. GI Symptoms or Concerns This is a 65-year-old female presenting to [facility] clinic for further management of diarrhea predominant IBS. She has a past medical history significant for depression, gastroesophageal reflux disease, hypertension, hyperlipidemia, and rheumatoid arthritis. She has been diagnosed with Type II diabetes since last visit. She presents today feeling better. She has just retired from her job. She is having less episodes of diarrhea. She is taking one tablespoon of metamucil when she remembers. She takes colestipol in the morning daily and at night when she remembers. She is taking dicyclomine 20 mg three times daily, imodium up to 4 tabs daily and pepto bismol as needed. She has been on Trazodone 25 mg at [facility]. Citalopram was discontinued last fall due to dry mouth and dry eyes. Abdominal pain has improved since last seen in October. She is having 3 to four soft stools daily but episodes of diarrhea a couple of times per week with sometimes incontinence. She occasional has days without a bowel movement and avoids the imodium. She is taking levbid and occasionally levsin with benefit. Pain can be diet dependant. She used the levsin yesterday after eating a hamburger. The patient has been seen on multiple different occasions in the past for constipation predominant irritable bowel syndrome. Her symptoms began to transition to diarrhea predominance in April 2015. Workup has included an unremarkable CBC, CMP, celiac serology, thyroid cascade profile, stool testing including Cryptosporidium, giardia, ova and parasites and stool culture were negative. Fecal leucocytes showed a few white blood cells in the stool. A qualitative fecal fat test was normal. A subsequent colonoscopy on June 01, 2015, with MAC sedation revealed a tubular adenoma. Otherwise, exam was normal. Random colon biopsies were normal. Most recently, she has had a negative fructose breath tests. She has not noted any improvement with a dairy free diet.She has been diagnosed with depression in the past. she underwent evaluation and visits with a psychiatrist two years ago for memory problems associated with depression. She did not find benefit with the visits and stopped going.Patient did not notice any improvement in the past with the colonoscopy prep, therefore overflow diarrhea seems less likely. GI Symptoms or Concerns This is a 65-year-old female presenting to [facility] clinic for further management of diarrhea predominant IBS. She has a past medical history significant for depression, gastroesophageal reflux disease, hypertension, hyperlipidemia, and rheumatoid arthritis.She was seen in the clinic 09/11/2015. She was reporting ongoing incidence on 1 tsp of metamucil daily, dicyclomine 20 mg three times daily, imodium up to 4 tabs daily and pepto bismol as needed. Metamucil was increased to one tablespoon daily and nortriptyline 25 mg daily without change. the notripytline is causing an intolerable dry mouth evident with visit today. citalopram was discontinued last fall due to dry mouth and dry eyes. She continues to have intermittent abdominal pain/cramping, usually in the lower abdomen. the pain correlates with bowel movements, even formed stools,s she will have pain that will last up to two hours after she moves her bowels the pain is sharp. she has some nasuea but no vomiting. the stools can be from loose to formed with ongoing pain. she will usually have most of her bowel movements in the morning but often in the evening and overnight. she has urgency with the stools but no incontinence. 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 She typically has bowel movements every two to three days. She does not use imodium on days without a bowel movements. The patient has been seen on multiple different occasions in the past for constipation predominant irritable bowel syndrome. Her symptoms began to transition to diarrhea predominance in April 2015. Workup has included an unremarkable CBC, CMP, celiac serology, thyroid cascade profile, stool testing including Cryptosporidium, giardia, ova and parasites and stool culture were negative. Fecal leucocytes showed a few white blood cells in the stool. A qualitative fecal fat test was normal. A subsequent colonoscopy on June 01, 2015, with MAC sedation revealed a tubular adenoma. Otherwise, exam was normal. Random colon biopsies were normal. Most recently, she has had a negative fructose breath tests. She has not noted any improvement with a dairy free diet.She has been diagnosed with depression in the past. she underwent evaluation and visits with a psychiatrist two years ago for memory problems associated with depression. she did not find benefit with the visits and stopped going. she is in a very stressful job with plans to retire in November. Patient did not notice any improvement in the past with the colonoscopy prep, therefore overflow diarrhea seems less likely. GI Symptoms or Concerns This is a pleasant 65-year-old female presenting to clinic today for followup regarding diarrhea. She has a past medical history significant for depression, gastroesophageal reflux disease, hypertension, hyperlipidemia, and rheumatoid arthritis.The patient has been seen on multiple different occasions in the past for constipation predominant irritable bowel syndrome. Her symptoms began to transition to diarrhea predominance in April 2015. Workup has included an unremarkable CBC, CMP, celiac serology, thyroid cascade profile, stool testing including Cryptosporidium, giardia, ova and parasites and stool culture were negative. Fecal leucocytes showed a few white blood cells in the stool. A qualitative fecal fat test was normal. A subsequent colonoscopy on June 01, 2015, with MAC sedation revealed a tubular adenoma. Otherwise, exam was normal. Random colon biopsies were normal. Most recently, she has had a negative fructose breath tests. She has not noted any improveme GI Symptoms or Concerns This is a pleasant 65-year-old female presenting to clinic today for followup regarding diarrhea.The patient has been seen on multiple different occasions in the past for constipation predominant irritable bowel syndrome. Approximately, the beginning of April, she began experiencing more issues with diarrhea. On her initial clinic on May 08, she had reported three to four bowel movements in the morning and four to five bowel movements on the way to work. Initially, stool would be formed and then progressively become more watery. At that time, she was also noticing occasional nocturnal stooling as well. She has a chronic history of lower abdominal cramping and bloating.Workup in April including an unremarkable CBC, CMP, celiac serology, thyroid cascade profile. Stool testing including cryptosporidium, giardia, ova and parasites and stool culture were negative. Fecal leukocytes showed a few white blood cells in the stool. A qualitative fecal fat test was n GI Symptoms or Concerns This is a pleasant 65-year-old female presenting to clinic today for followup regarding diarrhea.The patient has been seen on multiple different occasions in the past for constipation predominant irritable bowel syndrome. In approximately the beginning of April, she began experiencing more issues with diarrhea. When she was seen in clinic on May 08, she had reported three to four bowel movements in the morning and four to five bowel movements on the way to work. Initially the stool would be formed, but then will progressively become more watery. She would occasionally experience nocturnal stooling as well. In addition she had lower abdominal cramping and abdominal bloating.When she was seen in clinic on May 08, she underwent a thorough workup with lab testing that included an unremarkable CBC, CMP, celiac serology, and thyroid cascade profile. Stool testing including cryptosporidium, giardia, ova and parasites, and stool culture were negative. Fecal le GI Symptoms or Concerns This eliel iedania is a 65-year-old white female seen today, because of what can be best described as a change in bowel habits over the past month. She has been seen here in the past because of a history of colon polyps and constipation-predominant irritable bowel syndrome. Last clinic visit was in December 2013. At that time, the patient was seen post attempted colonoscopy, which could not be completed due to patient's discomfort with examination performed of the transverse colon. Subsequent CT colonography did not show any abnormalities and the patient was advised to have surveillance in five years with MAC sedation. At the time the patient was last seen, she was doing relatively well and reported two bowel movements daily. She had been advised to use a high-fiber diet and MiraLax, neither of which were of any benefit according to her when we spoke today. In addition, the patient had apparently met with a dietitian her regarding a high-fiber diet and avoidance of FODMAPs type foods, w Functional Status Date Functional Assessmen t No Information Instructions Date Instruction Additional Infor rubina Diverticulosis/Diverticulitis Re lated to Colorectal polyps Colon Polyps Related to Color ectal polyps Colon Cancer Prevention Related to Colorectal polyps high fiber diet Related to Color ectal polyps May-18-2021 continue metamucil 2 tablespoons daily start imodium 1 tablet daily Colonoscopy after rotator cuff surgery January 15follow up after colonoscopy Related to Diarrhea, unspecified type increase the metamuc il to two tablespoons daily increase imodium to 1 tablet daily colon and EGD, for diarrhea, after rotator cuff repair xray in 2017 showed very little stool. If ongoing problems then I would schedule abdominal xray to assess for fecal burden. Related to Diarrhea, unspecified type take 1 tablespoon of metamucil daily, if no change in bowel pattern after one week then increase to two tablespoons daily continue dicyclomine 20 mg two times daily ( this will not be covered by insurance after the first of the year) continue imodium as needed. if problems call me and we will schedule xray to assess for fecal burdenfollow up in 3 months. you are do for colonoscopy for colon cancer screening. I will also order EGD with small bowel biopsies due to your ongoing symptoms of diarrhea. Related to Irritable bowel syndrome with constipation start metamucil 1 ta blespoon daily, if no change in bowel pattern after one week then increase to 2 tablespoons daily start imodium 1/2 tablet daily if still with problems or worsening symptoms then abdominal xray to assess for fecal burden. remain off of trazodone as you arecontinue dicyclomine three times daily for now but will try to stop after better bowel regulation. future therapies would be a trial of lactose free and low fructose diets. Related to Irritable bowel syndrome with diarrhea continue the dicyclo mine 20 mg four times dailycontinue hyoscyamine as neededimodium tablets 1/2 tablet per day- if this is constipating then take 1/2 tablet every other dayif diarrhea still problematic take colestipol two tablets at nooncontinue trazodone every day. consider a fructose free diet, lactose free diet and gluten free diet to see if this helps with diarrhea. Fodmaps diet. eliminate all food groups for two weeks, then if symptoms improve you know that one or more groups are problematic. you reintroduce one group x 1 week. If symptoms return take that group back out, if symptoms do not then continue with that group and proceed with the next group systematically until you have trialed all of the groups. If you are unable to control diarrhea with imodium and colestipol I would then prescribe viberzi Related to Irritable bowel syndrome with diarrhea IBS - AGA Brochure Related to Ir ritable bowel syndrome with diarrhea fructose free diet Related to Ir ritable bowel syndrome with diarrhea lactose free diet Related to Irr itable bowel syndrome with diarrhea gluten free diet Related to Irri table bowel syndrome with diarrhea fodmaps diet Related to Irrit able bowel syndrome with diarrhea Lifestyle education regarding di et Related to Dietary counseling and surveillance continue trazodone 1 00 mg daily at bedtimecontinue dicyclomine 20 mg four times daily start daily imodium, 1 tsp dailystart daily fiber supplement such as metamucildietary fiber of 35 g per daygood probiotic food sources include fresh sherif kraut, pickles, kombucha tea, kefir. I will give you a copy of the fodmaps diet. This is an elimination diet, you start with elimination of all food groups for 2 weeks, then if symptoms resolve or improve that tells you there is a food sensitivity. incorporate one food group per week, if symptoms come back, you will know what the problematic food group is. copy the [place] stool scale sheet for her. Related to Irritable bowel syndrome with diarrhea IBS - AGA Brochure Related to Ir ritable bowel syndrome with diarrhea fodmaps diet Related to Irrit able bowel syndrome with diarrhea Lifestyle education regarding di et Related to Dietary counseling and surveillance Start viberzi 75 mg two times daily, if signs of constipation then discontinue or decrease to one time dailyContinue dicyclomine 20 mg orally four times dailyContinue hyoscyamine 0.125 mg as needed up to two times dailyContinue metamucil 1 tablespoon two times daily Continue imodium as needed. consider pelvic floor evaluation Related to Irritable bowel syndrome with diarrhea Lifestyle education regarding di et Related to Dietary counseling and surveillance continue the trazodo ne at bedtimecontinue metamucil 1 tablespoon two times dailywill check abdominal xray, if signs of constipation then stop the imodium/lomotil and start dulcolax suppositories three times weekly. continue the dicyclomine 20 mg four times daily. I will give you dietary instruction on fodmaps diet. I would recommend that you look at this diet to see if you identify problematic foods. If symptoms are ongoing, we could have you meet with the retail custodial associate to discuss elimination diets. Foods that usually cause the most problems are gluten based foods, wheat, and lactose. If xray does not show constipation then I would prescribe rifaximin for possible SBIO. Related to Irritable bowel syndrome, unspecified type fodmaps diet Related to Irrit able bowel syndrome, unspecified type Lifestyle education regarding di et Related to Dietary counseling and surveillance Xray Abdomen; Limite d (AP View Only) (KUB) add the metronidazol e two times daily for 7 days, if diarrhea still present then add colestipol 1 tablet at noon . Call me. This helps with the diarrhea. Continue Trazodone at bedtime 100 mg dailyContinue metamucil 1 tablespoon two times daily Continue dicyclomine 20 mg four times daily, this can give you a dry mouth. 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 If the imodium causes constipation will stop and start senna 1 to 2 tablets per day to see if retained stool in the etiology of your symptoms. if this worsens things then would stop and start colestipol tablets two times per day. Call me with update next week. Pelvic floor evaluation. Related to Irritable bowel syndrome with diarrhea Continue Trazodone 2 tablets at bedtimeDicyclomine 10 mg four times dailyOkay to use hyoscyamine 1 to 2 times daily as neededMetamucil 1 tablespoon in the morning and at lunch timeMiralax 1/2 to 1 capful three times weekly, if stools become too watery then stop and start imodium 1 to 2 tablets three times weekly. Patient seen and examined with WILLIAM Navarrete Related to Constipation, unspecified constipation type Xray Abdomen; Limite d (AP View Only) (KUB) Lifestyle education regarding di et Related to Dietary counseling and surveillance Alva Stool Chart Related to M ixed irritable bowel syndrome Start Miralax two ca pfuls daily x 7 daysContinue citrucel 1 tablespoon daily We will call you on Thursday with symptom update. No antidiarrheals. stop the diphenoxylate-atropine and imodium. Continue the dicyclomine before meals, stop the hyoscyamine. If you are passing loose mushy stools then decrease miralax to one capful daily. Related to Constipation, unspecified constipation type Lifestyle education regarding di et Related to Dietary counseling and surveillance Metamucil 1 tablespo on daily, if still with problems then 2 tablespoon dailiyDicyclomine as you two times daily then as needed up to four times dailyLomotil as needed, try using it before dining out. Increase the Trazodone to 100 mg at bedtime. Continue diet as you are If abdominal xray is negative would then schedule cholestyramine. Related to Irritable bowel syndrome with diarrhea Xray Abdomen; Limite d (AP View Only) (KUB) Related to Irritable bowel syndrome with diarrhea Increase the Trazodo ne to 1.5 tablets ( 75 mg) at bedtime, this should help us decrease the antidiarrheal medication. ( trazodone is an antidepressant used to help with abdominal pain, sleep and slow down diarrhea) Continue the loperamide (imodium) 2 tabs in the morning and two at bedtime. Decrease Diphenoxylate-atropin 2.5 -.025 mg to one tablet in the morning and none at night. If you still have days without a bowel movement, then stop the morning tablet as wellCall me if still having problems with bowel regulation.Continue the dicyclomine two times daily and 0.125 hyoscyamine as needed. have her sign a controlled substance form. Related to Irritable bowel syndrome, unspecified type increase trazodone t o 50 mg at bedtimecontinue Levbid and levsin as neededcontinue imodium up to 8 tablets per day. if this is not working consider lomotilcontinue colestipol one tablet two times daily. continue metamucil dailyfollow up in three months but if doing better we can extend out one year. Related to Diarrhea Lifestyle education regarding di et Related to Dietary counseling and surveillance stop dicyclomine and start hyoscyamine two times daily 0.375 mg tabletyou can use smaller dose 0.125 mg under the tongue for bouts of urgency and abdominal pain. (hyoscyamine)continue metamucil 1 tablespoon dailystart colestipol 1 gm tablet in the evening and may take additional dose in the morning if needed. use imodium as you, if ongoing diarrhea would take one tablet daily. continue pepto bismol as needed. stop nortriptyline, will start trazodone 25 mg daily, 1/2 tablet can increase to one tablet at bedtime if tolerating. if not responding to therapy even after [facility] would recommend antianxiety therapy through your primary care provider. I will send out a letter. Related to Diarrhea Patient will continu e Metamucil, although we will increase her dose to two tablespoons per day. She will take dicyclomine up to four times a day as needed ensuring that she does take a tablet in the morning before she leaves for work. She could continue Imodium and Pepto-Bismol as needed. She will start nortriptyline 25 mg at bedtime. She will contact me if she has similar side effects. If she is unable to tolerate the nortriptyline, I recommended a trial of cholestyramine. I advised that she follow up in the [facility] in six weeks. If medical therapy does not provide significant benefit, we did discuss possible referral to the [facility] for alternative therapies. Patient may be a good candidate for cognitive behavioral therapy as well. Related to Irritable bowel syndrome with diarrhea Lifestyle education regarding di et Related to Dietary counseling and surveillance Patient will increas e her Metamucil dose to one tablespoon a day. She will continue a dairy-free diet. She will continue to take Imodium and Pepto-Bismol as needed. She will also continue dicyclomine up to four times a day. I will send in refills today. We discussed potentially a trial of cholestyramine if her bowel movement frequency does not significantly improve with the increase in fiber intake. She is no longer on any antidepressant medications, and potentially can consider addition of a tricyclic antidepressant for treatment of IBS. She will complete the previously ordered fructose breath test as well. She will follow up in clinic in approximately one month. She may benefit from an appointment in the functional clinic. Related to Irritable bowel syndrome with constipation and diarrhea The patient will res tart a fiber supplement. I recommended taking Citrucel one to two tablespoons a day. I recommended taking this in the evening to hopefully prevent worsening diarrhea symptoms in the morning. She will trial a dairy free diet over the next two weeks and I provided her information on lactose intolerance. If her symptoms do not respond, I recommended a fructose breath test. She can continue Imodium and Pepto-Bismol as needed. I recommend that she continue dicyclomine up to four times a day as needed for abdominal cramping. She is currently on citalopram and therefore treatment with a tricyclic antidepressant would be less of a possibility in addition to this medication. If her symptoms persist, can consider an abdominal x-ray to evaluate for overflow diarrhea. I have held off on this currently as she did not notice any significant improvement after the colonoscopy prep. She will follow up in clinic in six weeks. Related to Diarrhea Lactose Intolerance Related to D iarrhea Lifestyle education regarding di et Related to Dietary counseling and surveillance Colon Cancer Prevention Related to Diarrhea, unspecified Colon Polyps Related to Diarr hea, unspecified Colonoscopy 1. Laboratory - CBC, CMP, celiac markers, and thyroid cascade.2. Stool for C. difficile, ova and parasites, Giardia, cryptosporidium, culture, white blood cells, and qualitative fat.3. We will await results of above and notify patient. If the studies prove to be nondiagnostic, my thinking at this point is the patient should be scheduled for colonoscopy given the incomplete procedure one year ago and her history of adenomatous colon polyps in the past. Concerns would be intervening microscopic colitis, significant colonic neoplasm, inflammatory bowel disease, etc. Related to Change in bowel habits Diarrhea Related to Mina e in bowel habits Lifestyle education regarding di et Related to Dietary surveillance and counseling Assessments Type Assessment Date No Information Patient Care Teams Name Effective Dates (start - stop) Status Members No Information
--- OUTSIDE RECORDS SUMMARY | 2021-02-01 04:01 | XMS_ITS | Continuity of Care Document ---
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 [facility], [facility] 500, [place], [place], [id number], [place]. tel:[phone] Referring Provider: Shawn Ramsey MD, [address] [facility] 500, [place], [address] . tel:[phone] [facility], [address] [address], [place], [id number], [place] tel:[phone] [facility] Diarrhea, unspecifiedIr ritable bowel syndrome with diarrheaGastr opathyColorec gilberto polypsDiverti culosisDiarrh ea, unspecifiedPe rsonal history of colonic polypsBenign neoplasm of descending colonDvrtclos of lg int w/o perforation or abscess w/o bleedingDiarr hea, unspecifiedDv rtclos of lg int w/o perforation or abscess w/o bleedingPerso nal history of colonic polyps [address] [facility], [address], [id number], [place]. tel:[phone] Referring Provider: Referral Self, USE FOR SELF REFERRALS. Telephone E&M II 11-20 Min BLANCA [facility], [address] [address], [place], [id number], [place] tel:[phone] [facility] GI Symptoms or Concerns (chief complaint) Diarrhea, unspecified type 1 Sanjay Núñez. [address] [facility], [facility] 500, [place], [place], [address], [place]. tel:[phone] Referring Provider: Referral Self, USE FOR SELF REFERRALS. [facility], [address] [address], [place], [id number], [place] tel:[phone] [facility] No Information [address] [facility], [facility] [address], [place], [address], [place]. tel:[phone] Telephone E&M I 5-10 Min [facility]CA [facility], [address] [address], [place], [id number], [place] tel:[phone] [facility] GI Symptoms or Concerns (chief complaint) Diarrhea, unspecified typeIrritable bowel syndrome with diarrhea Fe-0 1 Sanjay Núñez. [address], [id number], [place]. tel:[phone] Referring Provider: Referral Self, USE FOR SELF REFERRALS. Telephone E&M II 11-20 Min BLANCA [facility], [address] [address], [place], [id number], [place] tel:[phone] [facility] Additional Narrative (chief complaint)C omment (chief complaint) Irritable bowel syndrome with constipationC olon cancer screening 0 Sanjay Núeñz. [address] [place] [address], [id number], [place]. tel:[phone] Referring Provider: Referral Self, USE FOR SELF REFERRALS. Telephone E&M II 11-20 Min BLANCA [facility], [address] [address], [place], [address], [place] tel:[phone] [facility] GI Symptoms or Concerns (chief complaint) Irritable bowel syndrome with diarrhea 0 Sanjay Núñez. [facility], [id number], [place]. tel:[phone] Referring Provider: Referral Self, USE FOR SELF REFERRALS. [facility], [address] [address], [place], [id number], [place] tel:[phone] [facility] No Information [address] [facility], [address], [id number], [place]. tel:[phone] Offic/outpt E&m Estab Mod-hi 4 [facility], [address] [address], [place], [id number], [place] tel:[phone] [facility] GI Symptoms or Concerns (chief complaint) Irritable bowel syndrome with diarrheaDieta ry counseling and surveillance 9 Sanjay Núñez. [address] [facility], [facility] 500, [place], [place], [address], [place]. tel:[phone] Referring Provider: Mariola Lobo, [address], [place], [address]. tel:[phone] Offic/outpt E&m Estab Mod-hi 4 [facility], [address] [address], [place], [place], [address], [place] tel:[phone] [facility] GI Symptoms or Concerns (chief complaint) Irritable bowel syndrome with diarrheaDieta ry counseling and surveillanceE levated blood-pressur e reading, w/o diagnosis of htn 9 Sanjay Núñez. [address] [facility], [facility] 500, [place], [place], [address], [place]. tel:[phone] Referring Provider: Mariola Lobo, [address], [place], [address]. tel:[phone] Offic/outpt E&m Estab Mod-hi 4 [facility], [address] [address], [place], [place], [address], [place] tel:[phone] [facility] GI Symptoms or Concerns (chief complaint) Irritable bowel syndrome with diarrheaDieta ry counseling and surveillance 8 Sanjay Núñez. [address] [facility], [address], [place], [place], [address], [place]. tel:[phone] Referring Provider: Referral Self, USE FOR SELF REFERRALS. Offic/outpt E&m Estab Mod-hi 4 [facility], [address] [address], [place], [place], [id number], [place] tel:[phone] [facility] GI Symptoms or Concerns (chief complaint) Irritable bowel syndrome, unspecified typeDietary counseling and surveillance 8 Sanjay Núñez. [address] [facility], [facility] [address], [place], [address], [place]. tel:[phone] Referring Provider: Referral Self, USE FOR SELF REFERRALS. Offic/outpt E&m Estab Mod-hi 4 [facility], [address] [address], [place], [place], [address], [place] tel:[phone] [facility] GI Symptoms or Concerns (chief complaint) Irritable bowel syndrome with diarrhea 8 Sanjay Núñez. [address] [facility], [facility] [address], [place], [address], [place]. tel:[phone] Referring Provider: Referral Self, USE FOR SELF REFERRALS. Offic/outpt E&m Estab Mod-hi 4 [facility], [address] [address], [place], [place], [address], [place] tel:[phone] [facility] GI Symptoms or Concerns (chief complaint) Irritable bowel syndrome with diarrhea 7 Sanjay Núñez. [address] [facility], [facility] [address], [place], [address], [place]. tel:[phone] Referring Provider: Referral Self, USE FOR SELF REFERRALS. Offic/outpt E&m Estab Mod-hi 4 [facility], [address] [address], [place], [place], [address], tel:[phone] [facility] GI Symptoms or Concerns (chief complaint) Constipation, unspecified constipation type 7 Sanjay Núñez. [address] [facility], [facility] [address], [place], [address], [place]. tel:[phone] Referring Provider: Referral Self, USE FOR SELF REFERRALS. Offic/outpt E&m Estab Mod-hi 2 [facility], [address] [address], [place], [place], [address], [place] tel:[phone] [facility] GI Symptoms or Concerns (chief complaint) Mixed irritable bowel syndromeDiarr hea, unspecified typeConstipat ion, unspecified constipation typeDietary counseling and surveillanceE levated blood-pressur e reading, w/o diagnosis of htn [address] [facility], [facility] [address], [place], [address], [place]. [phone] Referring Provider: Referral Self, USE FOR SELF REFERRALS. Offic/outpt E&m Estab Mod-hi 4 [facility], [address] [address], [place], [place], [address], [place] tel:[phone] [facility] GI Symptoms or Concerns (chief complaint) Constipation, unspecified constipation typeAbdominal pain, unspecified locationDiarr heaDietary counseling and surveillanceE levated blood-pressur e reading, w/o diagnosis of htn 7 Sanjay Núñez. [address] [facility], [facility] [address], [place], [address], [place]. [phone] Referring Provider: Referral Self, USE FOR SELF REFERRALS. Offic/outpt E&m Estab Mod-hi 4 [facility], [address] [address], [place], [place], [address], [place] tel:[phone] [facility] GI Symptoms or Concerns (chief complaint) Irritable bowel syndrome with diarrhea 6 Sanjay Núñez. [address] [facility], [facility] 500[place], [place], [address], [place]. tel:[phone] Referring Provider: Mariola Lobo, [address] [place], [address]. tel:[phone] Offic/outpt E&m Estab Mod-hi 4 [facility], [address] [address], [place], [place], [address], [place] tel:[phone] [facility] GI Symptoms or Concerns (chief complaint) Irritable bowel syndrome, unspecified type 6 Sanjay Núñez. [address] [facility], [facility] [address], [place], [address], [place]. [phone] Referring Provider: Mariola Lobo, [address] , [place], [address]. tel:[phone] Offic/outpt E&m Estab Mod-hi 2 [facility], [address] [address], [place], [place], [address], [place] tel:[phone] [facility] GI Symptoms or Concerns (chief complaint) DiarrheaDieta ry counseling and surveillanceE levated blood-pressur e reading, w/o diagnosis of htn 6 Sanjay Núñez. [address] [facility], [facility] [address], [place], [address], [place]. tel:[phone] Referring Provider: Mariola Lobo, [address], [place], [address]. tel:[phone] Offic/outpt E&m Estab Mod-hi 4 [facility], [address] [address], [place], [place], [address], [place] tel:[phone] [facility] GI Symptoms or Concerns (chief complaint) DiarrheaGener alized abdominal painIrritable bowel syndrome with diarrhea 6 Sanjay Núñez. [address] [facility] 500[place], [place], [address], [place]. tel:[phone] Referring Provider: Mariola Lobo, [address] [facility] [address], [place], [address]. tel:[phone] Offic/outpt E&m Estab Mod-hi 2 [facility], [address] [address], [place], [place], [address], [place] tel:[phone] [facility] GI Symptoms or Concerns (chief complaint) Irritable bowel syndrome with diarrheaDieta ry counseling and surveillanceE levated blood-pressur e reading, w/o diagnosis of htn 6 Edstrom DAVE Yanez. [address] [facility], [facility] [address], [place], [address], [place]. tel:[phone] Referring Provider: Mariola Lobo, [address] , [place], [address]. tel:[phone] [facility], [address] [address], [place], [address], [place] tel:[phone] [facility] No Information [address] [facility], [facility] [address], [place], [address], [place]. [phone] Offic/outpt E&m Estab Mod-hi 2 [facility], [address] [address], [place], [address], [place] tel:[phone] [facility] GI Symptoms or Concerns (chief complaint) Irritable bowel syndrome with constipation and diarrhea Edstrlionel Yanez. [address] [facility] [address], [place], [address], [place]. tel:[phone] Referring Provider: Mariola Lobo, [address] [place], [address]. tel:[phone] [facility], [address] [address], [place], [place], [address], [place] tel:[phone] [facility] No Information 5 Edstrlionel ACOSTA Renata. [address] [place] [address], [address], [id number], [place]. tel:[phone] Referring Provider: Referral Self, USE FOR SELF REFERRALS. Offic/outpt E&m Estab Mod-hi 2 [facility], [address] [address], [facility] [place], [address], [place] tel:[phone] [facility] GI Symptoms or Concerns (chief complaint) DiarrheaDieta ry counseling and surveillanceE ssential (primary) hypertension 5 Marlotrlionel Yanez. [facility]1 [facility], [facility] [address], [place], [address], [place]. tel:[phone] Referring Provider: Mariola Lobo, [address] [facility] [address], [place], [address]. tel:[phone] [facility], [address] [address], [place], [id number], [place] tel:[phone] [facility] Diarrhea, unspecifiedCh deo in bowel habitBenign neoplasm of cecumChange in bowel habitDiarrhea , unspecified [address] [facility], [address], [place], [place], [address], [place]. tel:[phone] Referring Provider: Referral Self, USE FOR SELF REFERRALS. [facility], [address] [address], [place], [id number], [place] tel:[phone] [facility] Diarrhea 5 No Information Referring Provider: Mariola Lobo, [address], [place], [address]. tel:[phone] [facility], [address] [address], [place], [id number], [place] tel:[phone] [facility] Change in bowel habit 5 No Information Referring Provider: Referral Self, USE FOR SELF REFERRALS. Offic/outpt E&m Estab Mod-hi 2 [facility], [address] [address], [place], [id number], [place] tel:[phone] [facility] GI Symptoms or Concerns (chief complaint) Change in bowel habitsIrritab le bowel syndrome with constipationD ietary Surveil/couns elElev Bl Pres W/o HypertnElevat ed blood-pressur e reading, without diagnosis of hypertensionD ietary counseling and surveillanceI rritable bowel syndrome without diarrheaChang e in bowel habit 5 No Information Referring Provider: Referral Self, USE FOR SELF REFERRALS. [facility], [address] [address], [place], [id number], [place] tel:[phone] [facility] Irritable Bowel SyndromeChang e In Bowel Habits [address] [facility], [address], [place], [place], [address], [place]. tel:[phone] Referring Provider: Mariola Lobo, [address] , [place], [address]. tel:[phone] Offic/outpt E&m Estab Low-mod [facility], [address] [address], [place], [id number], [place] tel:[phone] [facility] Constipation UnspecifiedCo nstipation UnspecifiedIr ritable Bowel Syndrome 4 No Information Referring Provider: Mariola Lobo, [address], [place], [address]. tel:[phone] [facility], [address] [address], [place], [address], [place] tel:[phone] [facility] No Information 4 No Information Referring Provider: Mariola Lobo, [address] , [place], [address]. tel:[phone] Offic/outpt E&m Estab Mod-hi 2 [facility], [address] [address], [place], [id number], [place] tel:[phone] [facility] Irritable Bowel SyndromeIrrit able Bowel SyndromeConst ipation UnspecifiedPe rsonal History Colon Polyps 4 No Information Referring Provider: Mariola Lobo, [address] , [place], [address]. tel:[phone] Offic/outpt E&m Estab Mod-hi 2 [facility], [address] [address], [place], [address], [place] tel:[phone] [facility] Irritable Bowel Syndrome (chief complaint) Irritable Bowel SyndromeIrrit able Bowel SyndromeAbdom inal Pain, UnspecifiedCo nstipation Unspecified 3 No Information Referring Provider: Mariola oLbo, [address] , [place], [address]. tel:[phone] Offic/outpt E&m Estab Mod-hi 2 [facility], [address] [address], [place], [address], [place] tel:[phone] [facility] Follow up from Flex sig (chief complaint)A bdominal pain (chief complaint) Irritable Bowel SyndromeIrrit able Bowel Syndrome 1 No Information Referring Provider: Mariola Lobo, [address], [place], [address]. tel:[phone] [facility], [address] [address], [place], [address], [place] tel:[phone] [facility] Change In Bowel HabitsAbdomin al Pain, UnspecifiedCh deo In Bowel HabitsAbdomin al Pain, Unspecified 1 Randell Lopez. [address] [place] [address], [facility] [address], [place], [address], [place]. tel:[phone] Referring Provider: Mariola Lobo, [address], [place], [address]. tel:[phone] Offic/outpt E&m Estab Mod-hi 2 [facility], [address] [address], [place], [place], [address], [place] tel:[phone] [facility] Abdominal pain (chief complaint) Irritable Bowel Syndrome [address] [facility], [facility] [address], [place], [address], [place]. tel:[phone] Referring Provider: Mariola Lobo, [address], [place], [address]. tel:[phone] Offic Cons New/estab Mod 40 Mi [facility], [address] [address], [place], [place], [address], [place] tel:[phone] [facility] Irritable Bowel Syndrome 9 Randell Lopez. [address] [place] [address], [facility] [address], [place], [address], [place]. tel:[phone] [facility], [address] [address], [place], [place], [address], [place] tel:[phone] Carline [facility] Colon Cancer ScreeningPers onal History Colon Polyps [address] [facility], [facility] [address], [place], [place], [address], [place]. tel:[phone] Family History Family Member Type Diagnosis Age [...] bi-directional interface ; Source: Other Registry Novel [id number], all formulations administered Note: [facility] bi-direct ional [...] Registry Payers Payer name Insurance type Covered constitution party ID Authorlisa parra(s) [employer] Medicare [place] [id number] Social History Type Description Quantity Date Captured [...] Order C diffic ile Toxin Gene BECCA ([id number]), Sent on: Sent History Of Present Illness [...] years that she has been following with [facility]. She has had previous incidence of overflow [...] as a type 5 according to the Story stool scale. She follows a lactose-free diet. [...] years that she has been following with [facility]. She has had previous incidence of overflow [...] syndrome.She has previously been seen in our [facility] and has been on dicyclomine 4 [...] a 69-year-old female who returns to the [facility] for ongoing management of diarrhea-predominant bowel syndrome [...] a 68-year-old female who returns to the [facility] for ongoing management of diarrhea predominant irritable [...] as type 5 to type 6 on Story stool scale. Occasionally, she will have a [...] a 68-year-old female who returns to the [facility] for ongoing management of diarrhea predominant irritable bowel syndrome with symptoms of urgency, fecal incontinence, and abdominal cramping. Symptoms have been refractory to Lomotil, colestipol, Imodium, Metamucil, trazodone, nortriptyline, hyoscyamine, dicyclomine, and most recently an empiric trial of rifaximin with her [id number] expense of $400. She has been taking [...] She rates her stools anywhere on the Story stool scale from a 5 to 7. She does occasionally have bowel movements later in the day. Last night, she was dining out and had pr GI Symptoms or Concerns Cailin pak is a 68-year-old female who returns to the [facility] for diarrhea predominant bowel pattern with symptoms [...] a 67-year-old female who returns to the [facility] for diarrhea predominant bowel pattern. She presents [...] is rating her stools currently on the Story stool scale from 6 to 7 with [...] a 67-year-old female, who returns to the [facility] for diarrhea-predominant bowel pattern. In fact, it [...] been documenting her stool consistency using the Story stool chart since 01/12/17 and brings this [...] This 66- year-old female comes into the [facility] today for followup of her bowel related problems. She has a history of underlying IBS-C, determined on abdominal x-ray. At the time, she was really not aware of the degree of her constipation, was complaining more about diarrhea, which was overflow related. She is keeping her own chart now, following a successful cleanout. The chart is different from our Story stool chart, which we will switch over [...] a 66-year-old female who presents to the [facility] for further management of her irritable bowel [...] This is a 66-year-old female presenting to [facility] for further management of diarrhea predominant [...] This is a 66-year-old female presenting to [facility] for further management of diarrhea predominant [...] This is a 65-year-old female presenting to [facility] for further management of diarrhea predominant [...] has been on Trazodone 25 mg at the [facility]. Citalopram was discontinued last fall due to [...] This is a 65-year-old female presenting to [facility] clinic for further management of diarrhea predominant [...] stools but no incontinence. 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 and [...] et Related to Dietary counseling and surveillance fodmaps diet Related to Irrit able bowel syndrome with diarrhea gluten free diet Related to Irri table bowel syndrome with diarrhea lactose free diet Related to Irr itable bowel syndrome with diarrhea fructose free diet Related to Ir ritable bowel syndrome with diarrhea IBS - AGA Brochure Related to Ir ritable bowel syndrome with diarrhea continue trazodone 1 00 mg daily at [...] et Related to Dietary counseling and surveillance fodmaps diet Related to Irrit able bowel syndrome with diarrhea IBS - AGA Brochure Related to Ir ritable bowel syndrome with diarrhea Start viberzi 75 mg two times daily, [...] we could have you meet with the flocculator operator to discuss elimination diets. Foods that usually [...] Navarrete Related to Constipation, unspecified constipation type Story Stool Chart Related to M ixed irritable bowel syndrome Lifestyle education regarding di et Related to Dietary counseling and surveillance Xray Abdomen; Limite d (AP View Only) (KUB) Start Miralax two ca pfuls daily x [...] if not responding to therapy even after detention would recommend antianxiety therapy through your primary [...] we did discuss possible referral to [facility] for alternative therapies. Patient may be a [...] Related to Dietary counseling and surveillance Colon Polyps Related to Diarr hea, unspecified Colon Cancer Prevention Related to Diarrhea, unspecified Colonoscopy 1. Laboratory - CBC, CMP, [...] etc. Related to Change in bowel habits Lifestyle education regarding di et Related to Dietary surveillance and counseling Diarrhea Related to Mina e in bowel habits Assessments Type Assessment Date No Information Patient Care Teams Name Effective Dates (start - stop) Status Members No Information
--- OUTSIDE RECORDS SUMMARY | 2025-01-22 08:43 | XMS_ITS | Clinical Summary ---
Author Organization [facility] Address [address] [place] [id number] Care Team Providers Care [employer] Name Role Phone Mariola Huang MD Primary Care Provider [phone] Kassandra Harrington MD Unavailable [phone] Yonis Us Unavailable Unavail able Allergies Active Allergy Reactions Criticality Noted Date Comments Lisinopril Cough 08/30/2010 Medications CALCIUM 500 WITH D 500 MG (1,250 MG)-400 UNIT TAB 3 tabs daily 0 8 Active folic acid 1 mg tabletIndicatio ns:Rheumatoid arthritis, involving unspecified site, unspecified rheumatoid factor presence Take 1 tablet by mouth once daily. 0 9 Active methotrexate (RHEUMATREX) 2.5 mg tabletIndicatio ns:Rheumatoid arthritis, involving unspecified site, unspecified whether rheumatoid factor present (HC) Take 5 tablet by mouth every Thursday. 0 1 Active clobetasol cream 0.05% (TEMOVATE) 0.05 % creamIndication s:Lichen sclerosus Apply topically to affected area(s) 2 times daily. Genital area, prescribed by JOB SITE SUPERINTENDENT Dr Reinoso 2 Active omeprazole 20 mg tablet Take 1 Tablet (20 mg) by mouth once daily before a meal. 3 Active triamcinolone (ARISTOCORT; KENALOG) 0.1 % creamIndication s:Chronic eczema Apply topically to affected area(s) three times daily. 80 g 4 Active sertraline (ZOLOFT) 25 mg tabletIndicatio ns:Depression, major, single episode, mild Take 1 Tablet (25 mg) by mouth once daily in the morning. 90 Tablet 4 4 Active lovastatin (MEVACOR) 20 mg tabletIndicatio ns:Hyperlipidem ia with target LDL less than 100 Take 1 Tablet (20 mg) by mouth at bedtime. 90 Tablet 4 4 Active hydroCHLOROthia zide 12.5 mg tabletIndicatio ns:Hypertension , unspecified type Take 1 Tablet (12.5 mg) by mouth once daily. 90 Tablet 4 4 Active losartan (COZAAR) 50 mg tabletIndicatio ns:Hypertension , unspecified type Take 1 Tablet (50 mg) by mouth once daily. 90 Tablet 4 4 Active dicyclomine (BENTYL) 20 mg tabletIndicatio ns:Irritable bowel syndrome with diarrhea Take 1 Tablet (20 mg) by mouth four times daily before meals and at bedtime. 360 Tablet 4 4 Active cholestyramine- aspartame (Cholestyramine Light) 4 gram powderIndicatio ns:Diarrhea, unspecified type Mix 4 g in liquid then take by mouth two times daily. 231 g 11 5 Active Ceramides 1,3,6-11 (CeraVe) topical creamIndication s:Chronic eczema Apply topically to affected area(s). 5 Active metFORMIN 500 mg Extended-Releas e tabletIndicatio ns:Controlled type 2 diabetes mellitus without complication, without long-term current use of insulin (HC) Take 2 Tablets (1,000 mg) by mouth once daily with evening meal. 360 Tablet 1 5 Active metFORMIN (GLUCOPHAGE XR) 500 mg Extended-Releas e tabletIndicatio ns:Controlled type 2 diabetes mellitus without complication, without long-term current use of insulin (HC) Take 2 Tablets (1,000 mg) by mouth once daily with evening meal. 360 Tablet 1 5 01/12/20 25 Discontin ued(Reord er (E-cancel not sent)) Active Problems Problem Noted Date Diagnosed Date Persistent cough 03/16/2024 Tremor 08/06/2022 Overview (08/06/2022): noticed tremors, mainly left hand last 2 wks, since beginning july 2022 Hypertensive disease 08/06/2022 Overview (08/06/2022): stable on current regimen Foot pain, left 08/06/2022 Overview (08/06/2022): stable Diverticular disease of large intestine 02/02/20 21 S/P right rotator cuff repair 01/17/2021 Overview (01/17/2021): 10/17/20, doing therapy now, gradually improving Mild cognitive impairment 07/27/2019 Overview (07/27/2019): Saw neurology June 02, 2019, felt that it may be due to depression, patient is not as motivated, felt that she may have mild depression, treatment recommende Depression, major, single episode, mild 07/27/20 19 Overview (07/27/2019): pt with memory problems, saw neurologist, it was found that she has mild cognitive impairment, possibly due to depression, depression treatment recommended Nasal congestion 01/13/2019 Overview (01/13/2019): Has been coughing, and congested, clear drainage, no fever or chills, no shortness of breath, no sore throat Chronic eczema 01/13/2019 Overview (01/13/2019): Currently on triamcinolone which was prescribed by the commissioned security officer, this has been helping her Sacro-iliac pain 01/15/2017 Overview (01/15/2017): both sides, worst on the right, start from the bottom and radiates down behind the thighs Upper back pain 01/15/2017 Overview (01/15/2017): gets the pain after working in the garden, does not have it now, the pain comes and goes Pain of both hip joints 01/15/2017 Overview (01/15/2017): has an ache in the hips, worst with movement, but has a constant ache, worst on the right Arthritis of both hips 01/15/2017 Overview (01/15/2017): xray showed sign of arthritis, pt having pain in both hips Peripheral sensory neuropathy 01/15/2017 Overview (01/15/2017): has sensation of pin prick on the legs and waist line, keeps her up at night at time, bothering her off and on for several weeks Numbness 10/15/2016 Overview (10/15/2016): right 4th toe, none elsewhere Chronic diarrhea 10/15/2016 Overview (10/15/2016): working with gi on this, still having the problem Bilateral shoulder pain 10/15/2016 Overview (10/15/2016): since past July after putting up the [email or web address] tree, left is worst, decreased rom due to pain, unable to lie on it Diabetes type 2, controlled 06/28/2015 Overview (06/28/2015): controlled with diet exercise and metformin, a1c has been rising Irregular bowel habits 05/16/2015 Depression with anxiety 02/08/2013 Overview (01/02/2016): Stopped the celexa because of the dry mouth Arthritis 02/01/2013 Overview (02/01/2013): Low back and right hip seen on xray done 10/2012 Degenerative, lower lumbar spine, xray 12/06/07 Edema 02/01/2013 Overview (02/01/2013): will consider echo Hyperlipidemia LDL goal < 100 11/02/2012 Fatty liver 06/22/2012 Overview (06/22/2012): Seen on CT 06/2012 Lung nodules 06/22/2012 Overview (03/14/2014): Seen on abdominal CT done 06/2012, repeat in 12 months done, stable, does not need to be repeated Memory problem 06/16/2012 Overview (12/16/2012): according to her she says, she will consider seeing the nerologist for further evaluation Saw neurology 12/15/12, felt to be secondary to depression and anxiey Estevanertoe 11/17/2011 Osteopenia 04/04/2011 Overview (04/04/2011): Mild both femoral necks, bone density done 10/06/06 Arthritis 04/04/2011 Overview (03/22/2015): Degenerative, lower lumbar spine, xray 12/06/07, both hips and spine seen on xray Allergic rhinitis 04/04/2011 Lichen sclerosus 03/07/2011 Overview (03/07/2011): Use clobestasol, prescribed by melisa Rheumatoid arthritis(714.0) 03/07/2011 Overview (03/07/2011): Diagnosed by nurse administrator 01/2011, currently on medication Irritable bowel syndrome with diarrhea 1 Overview (06/28/2015): Saw GI 07/19, 06/04/11 advised fiber, decrease bentyl and miralax for constipation, consider a tricyclic( amitriptyline), saw gi in april 2015, had colonoscopy, on Thursday met with GI, nothing worrisome seen, trying dietary changes and revaluation, using immodium and pepto Overactive bladder 05/11/2010 Rash 03/04/2010 Overview (03/07/2011): Had 08/19 to 04/19 resolved eventually. Saw Voice Network Engineer in 10/17, on diprolene, lotrisone, cutivate creams Carpal tunnel syndrome 02/07/2010 Overview (04/04/2011): Had procedure on the right, not yet on the left GERD (gastroesophageal reflux disease) 0 History of colonic polyps 01/14/2008 Resolved Problems Problem Noted Date Diagnosed Date Resolved Date Severe obesity (BMI 35.0-39. 9) with comorbidity 04/09/2020 10/17/2021 Complex endometrial hyperplasia with atypia 04/22/2016 10/17/2021 Essential (primary) hypertension 06/25/2015 01/23/2022 Overview (01/17/2022): stable on current regimen Prediabetes 05/20/2012 09/07/2017 Overview (05/20/2012): Patient to make changes and follow up in 08/2012 See letter 05/20/12 Need for shingles vaccine 05/07/2012 Overview (05/07/2012): Will check with pharmacy Incontinence of urine 03/07/20112010 Postmenopausal bleeding 08/30/201010/08 Overview (08/30/2010): Saw Dr Donovan, had D& C, Internal hemorrhoids without mention of complication 02/07/2010 04/04/2011 Unspecified examination 02/07/201003/11 Overview (02/07/2010): Last CPX -2008 (breast exam,pap) Last lipids -2008 Last colonoscopy (repeat 5yrs) Obesity, unspecified 10/08/2007 011 Encounters Date Type Department Care Team Description 01/11/2025 2:20 PM CDT [place] [facility] [address] [place] [address] Mariola Huang MD Diabetes 01/11/2025 Travel 11/28/2024 11:40 AM CDT Ancillary Procedure [facility] [address] [address] 11/28/2024 Travel from Last 3 Months Immunizations Immunization Administration Dates Next Due COVID-19 VACCINE SPIKEVAX (M ODERNA 50MCG/0.5ML) 12YO+ PFS 09/28/2024,09/03/2023,06/02/2023 COVID-19 vaccine (Moderna 50 mcg/0.5mL) 12YO+ BIVALENT PF, MDV 05/01/2022 COVID-19 vaccine (Pfizer-Bio NTech 30mcg/0.3mL) PF, MDV 05/23/2021,10/27/2020,10/06/2020 Influenza A (H1N1), Inactivated 09/13/2009 Influenza, High-dose Inactivated 024,04/04/2016,06/28/2015,05/26 Influenza, IIV3 (Age >=3 years) 05/17/20 13,05/07/2012,05/10/2011,04/30 Influenza, Inactivated AIIV4 (Age 65+ Years) Preserv Free 06/02/2023,05/01/2022,05/23/2021,05/22 Influenza, Inactivated IIV3 (Age 65+ Years) Preserv Free 04/15/2019,04/22/2018,04/21/2017 Pneumococcal Poly,23-Valent (Pneumovax) 02/01/2013 Pneumococcal conj 13-Valent (Prevnar 13) 06/28/2015 RSV, Recombinant ADJ Reconst ituted (Arexvy 120MCG/0.5mL) 03/18/2024 Td, Preservative Free (age >= 7 Years) 7 Tdap 10/01/2006 Zoster (Shingrix-RZV, recombinant) 04/18/2019, Zoster (Zostavax-ZVL, live) 06/13/2013 Family History Medical History Relation Name Comments Other Father blood disorder Stroke Father Cancer Maternal Grandfather testicu lar COPD Maternal Uncle Arthritis Mother Diabetes Mother Hypertension Mother Cancer Paternal Grandfather lung Cancer-breast No Family History Cancer-ovarian No Family History Relation Name Status Comments Brother 1 Alive Brother 2 Alive Brother 3 Alive Father Maternal Grandfather Maternal Uncle Mother Paternal Grandfather Sister Alive Social History Tobacco Use Types Packs/Day Years Used Date Smoking Tobacco: Never Smokeless Tobacco: Never Tobacco Cessation:Counseling Given: No Alcohol Use Standard Drinks/Week Comments Yes 0 (1 standard drink = 0.6 oz pure alcohol) 0-1 drink per week (liquor)- updated 12/03/23 PHQ-2 Answer Date Recorded PHQ-2 TOTAL SCORE 0 03/16/2024 Social Connections Answer Date Recorded Do you often feel lonely or isolated from those around you? 0 03/16/2024 Financial Resource Strain Answer Date R ecorded Difficulty of Paying Living Expenses 3 03/16/2024 Difficulty of Paying Living Expenses Not on file 03/16/2024 Food Insecurity Answer Date Recorded Do you worry your food will run out before you are able to buy more? 1 03/16/2024 Transportation Needs Answer Date Record ed Does lack of transportation keep you from medica l appointments? 1 03/16/2024 Does lack of transportation keep you from work, meetings or getting things that you need? 1 03/16/2024 Housing Stability Answer Date Recorded What is your housing situation today? 1 03/16/2024 Utilities Answer Date Recorded Do you have trouble paying f or utilities (for example, heat, electricity, water, phone)? 1 03/16/2024 Comments No Sex and Gender Information Value Date Recorded Sex Assigned at Not on file Legal Sex Female 6:25 AM TRAVEL FREIGHT AND PASSENGER AGENT Gender Identity Not on file Sexual Orientation Not on file Occupation Industry Job Start Date Job End Date retired Not on file Not on file Not on file Obstetrics History Para Term AB IAB SAB Ectopic Multiple Livin g Live Births 0 0 Last Filed Vital Signs Vital Sign Reading Time Taken Comments Blood Pressure 126/72 01/11/2025 2:36 PM CDT Pulse 62 01/11/2025 2:36 PM CDT Temperature 36.3 C (97.4 F) 02/04/2024 2:08 PM CDT Respiratory Rate 16 07/05/2019 9:07 AM TRAVEL FREIGHT AND PASSENGER AGENT Oxygen Saturation 98% 09/28/2024 1:53 PM TRAVEL FREIGHT AND PASSENGER AGENT Inhaled Oxygen Concentration - - Weight 87.3 kg (192 lb 8 oz) 01/11/2025 2:36 PM CDT Height 162.6 cm (5' 4) 09/28/2024 1:53 PM TRAVEL FREIGHT AND PASSENGER AGENT Body Mass Index 33.04 09/28/2024 1:53 PM TRAVEL FREIGHT AND PASSENGER AGENT Plan of Treatment Upcoming Encounters Date Type Department Care Team (Late st Contact Info) Description 03/21/2025 2:30 PM CDT [place] [facility] [address] [facility] [address] [place] [place] [address] Mariola Huang MD [address] [facility] [address] [place] [place] [address] Health Maintenance Due Date Last Done Comments COVID-19 vaccine series (2023- season) 2025 09/28/2024, 05/19/2024, 09/03/2023, Additional history exists Postponed from 11/23/2024 (Provider discretion) Depression screening for age 12+ 03/16/2025 03/16/2024, 02/12/2023, 11/06/2022, Additional history exists Medicare Wellness for age 65+ 03/17/2025 03/16/2024, 02/12/2023, 10/17/2021, Additional history exists BMI (ht and wt on same day) for age 18+ 09/28/2025 09/28/2024, 03/16/2024, 02/04/2024, Additional history exists Tetanus booster 10/15/2026 10/15/2016, 09/11, 10/01/2006 (Completed outside of [facility]) Tdap Completed 10/06/2006, 10/01/2006 DEXA/DXA scan for age 65+ Completed 2012, 04/02/2010, 10/06/2006 Hepatitis C screening for age 18-79 Completed 03/20/2015 Pneumococcal series for age 50+ Completed 06/28/2015, 02/01/2013 Zoster (shingles) series for age 50+ Completed 04/18/2019, 01/14/2019, 06/13/2013 RSV vaccine for adults or Completed 03/18/2024 Influenza Vaccine Completed 05/10/2024, , 05/01/2022, Additional history exists Hepatitis B series for 19+ Aged Out N o longer eligible based on patient's age to complete this topic Procedures Procedure Name Priority Date/Time Associated Diagnosis Comments HEMOGLOBIN A1C MONITORING (POCT) Routine 01/11/2025 2:13 PM CDT Controlled type 2 diabetes mellitus without complication, without long-term current use of insulin (HC) XR MAMMO JARAD BILAT SCREEN Routine 11/28/2024 11:44 AM CDT Visit for screening mammogram ANTI HCV Routine 03/20/2015 10:04 AM CDT Need for hepatitis C screening test XR DXA BONE DENSITY 2 SITES AXIAL Routine 02/17/2013 12:00 PM CDT Post-menopausal from Last 3 Months or Most Recently Relevant to Health Maintenance Results * POCT Hemoglobin A1C Monitoring (01/11/2025 2:13 PM CDT) POC HEMOGLOBIN A1C 5.9 <6.0 % OF TOTAL HGB [facility] Comment: Any point of care results exhibiting inconsistency with the patient's clinical status should be repeated using a different testing method. Blood BLOOD SPECIMEN / Unknown 01/11/2025 2:13 PM CDT 01/11/2025 2:13 PM CDT us Mariola Huang MD CHEMISTRY Final Resu lt [facility] [address] [place], [place] [id number] [facility] [address], [address] [address] * XR MAMMO JARAD BILAT SCREEN (11/28/2024 11:44 AM CDT) Anatomical Region Laterality Modality BREASTS, Breast Left, Breast Right Bilateral Mammography Impressions 11/28/2024 3:14 PM CDT There is no radiographic evidence for malignancy. Recommend annual mammograms. MAMMOGRAM ASSESSMENT: ACR 1 Negative PATIENTS: You will also receive a letter with your examination results in an easy to read format. If you have questions about your results, please contact your referring provider. Narrative 11/28/2024 3:14 PM CDT For Patients: As a result of the Century Cures Act, medical imaging exams and procedure reports are released immediately into your electronic medical record. You may view this report before your referring provider. If you have questions, please contact your health care provider. XR MAMMO JARAD BILAT SCREEN [[id number]] CLINICAL HISTORY: This is an asymptomatic 74 y.o. patient. INDICATION FOR EXAM: Mammogram Screening. TECHNIQUE: CC and MLO views were obtained. This study was evaluated with the assistance of Computer-Aided Detection. Breast Tomosynthesis was used in interpretation. COMPARISON FILM: Yes 11/04/23 [facility] 10/27/22 [facility] FINDINGS: There are scattered areas of fibroglandular density. There are no dominant masses, suspicious micro calcifications or areas of architectural distortion. us Mariola Huang MD MAMMO Final Resu lt * ANTI HCV [[id number]] (03/20/2015 10:04 AM CDT) HEPATITIS C ANTIBODY Non-Reacti ve Non-Reacti ve 03/20/2015 2:34 PM CDT [facility] Blood specimen (specimen) BLOOD SPECIMEN / Unknown Venipuncture / Unknown 03/20/2015 10:04 AM CDT 03/20/2015 10:04 AM CDT Narrative [facility] - 03/20/2015 2:34 PM CDT Antibodies to HCV not detected; does not exclude the possibility of exposure to HCV. us Mariola Huang MD SEND OUTS Final Resu lt [facility] [address] [place] [address], [place] * XR DXA BONE DENSITY 2 SITES (02/17/2013 12:00 PM CDT) Anatomical Region Laterality Modality Spine, HIPS, HIPL, HIPR Other Narrative 02/18/2013 8:36 AM CDT Procedure Note Scanner - 02/17/2013 12:00 PM CDT Mariola SYKES Final Resu lt from Last 3 Months or Most Recently Relevant to Health Maintenance Insurance MEDICARE PART A HB ONLY [employer] MEDICARE ADVANTAGE Advance Directives Documents on File Type Date Recorded Patient Finish Rolls Operator Expl anation Healthcare Directive 02/05/2023 023 * Full Code (Latest Code Status on File) Date Activated Date Inactivated Comments 04/23/2016 11:36 AM 04/23/2016 6:16 PM * Full Code Date Activated Date Inactivated Comments 04/23/2016 7:25 AM 04/23/2016 11:36 AM Care Teams [employer] Airspace Officer Relationship Specialty Start Date End Date Mariola Huang MD [address] [place] [address] PCP - General Family Practice 08/21/10 Kassandra Harrington MD [address] [place] [address] [place] [address] Rheumatology 12/12/14 Yonis Us PA [address] [place] [address] Physician Tester Armature Or Fields 12/12/14
[2025-01-22 08:51] VITALS: BP 168/79; PULSE 66; RESP 18; TEMP 36; O2SAT 97; BMI 32.6
--- NOTE | 2025-01-22 09:19 | ED.GENADULT ---
HPI - General Adult General Chief complaint: Shoulder Injury/Pain Stated complaint: left shoulder pain, moving up neck Time Seen by Provider: 01/22/25 08:44 History of Present Illness HPI narrative: This 75-year-old female comes in with her because of onset of pain in her left shoulder and left side of her neck. She states that this pain was rather mild yesterday and seemed to bother her when she was wearing a seatbelt across her left shoulder. The pain became significantly worse since then. She did take a [place] tablet without much relief. She has history of rheumatoid arthritis and various joint aches and pains. She does take methotrexate. She did not have any injury event or strenuous activity to explain the symptoms. She states that the pain does not radiate down into her arm. Related Data Home Medications ?Medication ?Instructions ?Recorded ?Confirmed dicyclomine 20 mg tablet 20 mg PO QID 05/10/24 01/22/25 folic acid 1 mg tablet 1 mg PO DAILY 05/10/24 01/22/25 hydrochlorothiazide 12.5 mg tablet 12.5 mg PO DAILY 05/10/24 01/22/25 losartan 50 mg tablet 50 mg PO DAILY 05/10/24 01/22/25 lovastatin 20 mg tablet 20 mg PO QPM 05/10/24 01/22/25 metformin 500 mg tablet,extended 1,000 mg PO DAILY 05/10/24 01/22/25 release 24 hr methotrexate sodium 2.5 mg tablet 15 mg PO .thursday05/10/24 01/22/25 sertraline 25 mg tablet 25 mg PO QAM 05/10/24 01/22/25 triamcinolone acetonide 0.1 % applic topical 3XD 05/10/24 09/13/24 topical cream Calcium PO 09/13/24 09/13/24 clobetasol 0.05 % topical cream 1 applic topical BID 09/13/24 01/22/25 clobetasol 0.05 % topical ointment 1 applic topical BID 09/13/24 09/13/24 ketoconazole 2 % shampoo 1 applic topical 2XW 09/13/24 09/13/24 omeprazole 20 mg tablet,delayed 20 mg PO QDAY 09/13/24 01/22/25 release Previous Rx's ?Medication ?Instructions ?Recorded cyclobenzaprine 10 mg tablet 10 mg PO TID #15 tabs 01/22/25 hydrocodone 5 mg-acetaminophen 325 1 tab PO Q4-6H PRN pain #15 tabs 01/22/25 mg tablet ketorolac 10 mg tablet 10 mg PO TID 5 days #15 tabs 01/22/25 methylprednisolone 4 mg tablets in See Rx Instructions PO .COMPLEX 01/22/25 a dose pack (Medrol (Sy)) #21 ea Allergies Allergy/AdvReac Type Severity Reaction Status Date / Time lisinopril AdvReac Intermediate Cough Verified 09/13/24 12:48 Review of Systems Status of ROS: Reports: 10 or more systems reviewed and unremarkable except as noted in History and below Narrative: Constitutional: No fevers, no weight gain or loss. Eyes: No discharge. No vision changes. HENT: No congestion, no sore throat, no ear pain. Cardiovascular: No chest pain, no palpitations. Respiratory: No shortness of breath, no wheezes, no cough. Gastrointestinal: No abdominal pain, no vomiting, no diarrhea. Genitourinary: No dysuria, no hematuria. Musculoskeletal: Normal range of motion. Skin: No rashes, no pruritis. Neurological: No dizziness, weakness, sensory change, speech change. Endo/Heme/Allergies: No bruising or bleeding. No polydipsia. Pysch: no suicidality, no anxiety, no insomnia. All other systems reviewed and are negative. [facility] Medical History (Updated 01/22/25 @ 09:25 by Lito Valverde MD) Tremor ?R25.1 - Tremor, unspecified (ICD-10) Bilateral shoulder pain ?M25.511 - Pain in right shoulder (ICD-10) ?M25.512 - Pain in left shoulder (ICD-10) Numbness ?R20.0 - Anesthesia of skin (ICD-10) Edema ?R60.9 - Edema, unspecified (ICD-10) Memory problem ?R41.3 - Other amnesia (ICD-10) Lichen sclerosus ?L90.0 - Lichen sclerosus et atrophicus (ICD-10) Overactive bladder ?N32.81 - Overactive bladder (ICD-10) Persistent cough ?R05.3 - Chronic cough (ICD-10) Lung nodules ?R91.8 - Other nonspecific abnormal finding of lung field (ICD-10) Depression, major, single episode, mild ?F32.0 - Major depressive disorder, single episode, mild (ICD-10) Depression with anxiety ?F41.8 - Other specified anxiety disorders (ICD-10) Peripheral sensory neuropathy ?G60.8 - Other hereditary and idiopathic neuropathies (ICD-10) Carpal tunnel syndrome ?G56.00 - Carpal tunnel syndrome, unspecified upper limb (ICD-10) Arthritis of both hips ?M16.0 - Bilateral primary osteoarthritis of hip (ICD-10) Pain of both hip joints ?M25.551 - Pain in right hip (ICD-10) ?M25.552 - Pain in left hip (ICD-10) Upper back pain ?M54.9 - Dorsalgia, unspecified (ICD-10) Sacro-iliac pain ?M53.3 - Sacrococcygeal disorders, not elsewhere classified (ICD-10) Hammertoe ?M20.40 - Other hammer toe(s) (acquired), unspecified foot (ICD-10) Arthritis ?M19.90 - Unspecified osteoarthritis, unspecified site (ICD-10) Osteopenia ?M85.80 - Other specified disorders of bone density and structure, unspecified site (ICD-10) Rheumatoid arthritis ?M06.9 - Rheumatoid arthritis, unspecified (ICD-10) Irregular bowel habits ?R19.8 - Other specified symptoms and signs involving the digestive system and abdomen (ICD-10) Diverticular disease of large intestine ?K57.30 - Diverticulosis of large intestine without perforation or abscess without bleeding (ICD-10) History of colonic polyps ?Z86.0100 - Personal history of colon polyps, unspecified (ICD-10) Chronic diarrhea ?K52.9 - Noninfective gastroenteritis and colitis, unspecified (ICD-10) Fatty liver ?K76.0 - Fatty (change of) liver, not elsewhere classified (ICD-10) Irritable bowel syndrome with diarrhea ?K58.0 - Irritable bowel syndrome with diarrhea (ICD-10) GERD (gastroesophageal reflux disease) ?K21.9 - Gastro-esophageal reflux disease without esophagitis (ICD-10) Nasal congestion ?R09.81 - Nasal congestion (ICD-10) Allergic rhinitis ?J30.9 - Allergic rhinitis, unspecified (ICD-10) Diabetes type 2, controlled ?E11.9 - Type 2 diabetes mellitus without complications (ICD-10) Hyperlipidemia LDL goal <100 ?E78.5 - Hyperlipidemia, unspecified (ICD-10) Chronic eczema ?L30.9 - Dermatitis, unspecified (ICD-10) Rash ?R21 - Rash and other nonspecific skin eruption (ICD-10) Hypertensive disease ?I10 - Essential (primary) hypertension (ICD-10) Surgical History (Updated 08/18/24 @ 14:24 by Marisol Ojeda ~ COLLARETTE SEPARATOR, COLLARETTE SEPARATOR) History of endometrial biopsy ?Z92.89 - Personal history of other medical treatment (ICD-10) H/O flexible sigmoidoscopy ?Z98.890 - Other specified postprocedural states (ICD-10) History of removal of ovarian cyst ?Z98.890 - Other specified postprocedural states (ICD-10) ?Z87.42 - Personal history of other diseases of the female genital tract (ICD-10) H/O dilation and curettage ?Z98.890 - Other specified postprocedural states (ICD-10) History of carpal tunnel release ?Z98.890 - Other specified postprocedural states (ICD-10) H/O: hysterectomy ?Z90.710 - Acquired absence of both cervix and uterus (ICD-10) S/P right rotator cuff repair ?Z98.890 - Other specified postprocedural states (ICD-10) Social History Smoking Status: Never smoker Do you use any of these nicotine containing products: None Second hand tobacco smoke exposure: No How often do you have a drink containing alcohol: monthly or less How many standard drinks containing alcohol do you have on a typical day: 1 or 2 AUDIT-C Alcohol total score: 1 Non-prescribed substance use: denies use service: No Exam Narrative: Exam Narrative: Constitutional: Well-developed, well-nourished, no acute distress. HEENT: Normocephalic, atraumatic. Neck: Normal range of motion. Nontender. Supple. Heart: Regular. No murmurs. Normal rate. Intact distal pulses. Lungs: Clear to auscultation. No chest discomfort. No wheezes, rhonchi, or rales. Abdomen: Normal bowel sounds. Nontender. No rebound tenderness. Genitalia: Deferred. Back: No midline tenderness. Normal range of motion. Extremities: Normal range of motion. No injury. No point tenderness when palpating along the structures of her left shoulder. No sign of deformity. Skin: Intact. No rash. Warm. No erythema or pallor. Neurologic: No altered sensation. No weakness. Alert and oriented. Psychiatric: No suicidality. No anxiety or depression. No insomnia. Nursing notes and vitals signs are reviewed. Const: Vital Signs, click to edit/add: Vital Signs - 24 hr 01/22/25 08:51 Temperature 96.8 F L Pulse Rate [Pulse Oximeter] 66 Respiratory Rate 18 Blood Pressure [Ri ght Upper Arm] 168/79 H Pulse Oximetry 97 Oxygen Delivery Me thod Room Air Course Vital Signs Vital signs: Initial Vital Signs Temperature 96.8 F L 01/22/25 08:51 Temperature Source Temporal Artery Scan 01/22/25 08:51 Pulse Rate 66 01/22/25 08:51 Respiratory Rate 18 01/22/25 08:51 Blood Pressure 168/79 H 01/22/25 08:51 Blood Pressure Mean 108 H 01/22/25 08:51 Blood Pressure Position Sitting 01/22/25 08:51 Pulse Oximetry 97 01/22/25 08:51 Oxygen Delivery Method Room Air 01/22/25 08:51 Vital Signs Temperature 96.8 F L 01/22/25 08:51 Pulse Rate 66 01/22/25 08:51 Respiratory Rate 18 01/22/25 08:51 Blood Pressure 168/79 H 01/22/25 08:51 Pulse Oximetry 97 01/22/25 08:51 Oxygen Delivery Method Room Air 01/22/25 08:51 Temperature 96.8 F L 01/22/25 08:51 Pulse Rate 66 01/22/25 08:51 Respiratory Rate 16 01/22/25 10:07 Blood Pressure 168/79 H 01/22/25 08:51 Pulse Oximetry 97 01/22/25 08:51 Oxygen Delivery Method Room Air 01/22/25 08:51 Medications Administered Medications: Discontinued Medications Generic Name Dose Route Start Last Admin Trade Name Freq PRN Reason Stop Dose Admin Dexamethasone 10 mg 01/22/25 09:18 01/22/25 09:46 Dexamethasone 10 Mg/Ml Inj PO 01/22/25 09:19 10 mg ONCE ONE Administration Ketorolac Tromethamine 30 mg 01/22/25 09:18 01/22/25 09:38 Ketorolac 30 Mg/Ml Inj IM 01/22/25 09:19 30 mg ONCE ONE Administration Medical Decision Making MDM Narrative Medical decision making narrative: This patient comes in with onset of pain in her left shoulder in the left side of her posterior neck. There was no injury event or strenuous activity to trigger this. She does have a history of rheumatoid arthritis and has had various joints with arthritic pain in her past history. I did discuss lab and imaging options with the patient and in a process of shared decision making these were declined for now. The patient does have type 2 diabetes and is taking metformin. I did recommend a steroid but indicated this will cause her glucose to elevate temporarily. The patient did receive an oral dose of dexamethasone and intramuscular injection of Toradol. I did provide prescriptions for [place], Flexeril, Toradol, and Medrol Dosepak. I advised her to return if symptoms are persistent or worsening. Discharge Plan Discharge Clinical Impression: Left shoulder pain Patient Disposition: Home, Self-Care Condition: Stable Additional Instructions: Take medication as needed and directed. Follow up with MD return if worsening. Prescriptions: New cyclobenzaprine 10 mg tablet 10 mg PO TID Qty: 15 0RF hydrocodone-acetaminophen 5-325 mg tablet 1 tab PO Q4-6H PRN (Reason: pain) Qty: 15 0RF ketorolac 10 mg tablet 10 mg PO TID 5 Days Qty: 15 0RF methylprednisolone [Medrol (Sy)] 4 mg tablets,dose pack See Rx Instructions .ROUTE .COMPLEX Qty: 21 0RF Rx Instructions: orally per package directions No Action Calcium 500 mg PO clobetasol 0.05 % ointment 1 applic topical BID clobetasol 0.05 % cream 1 applic topical BID ketoconazole 2 % shampoo 1 applic topical 2XW omeprazole 20 mg tablet,delayed release (DR/EC) 20 mg PO QDAY losartan 50 mg tablet 50 mg PO DAILY methotrexate sodium 2.5 mg tablet 15 mg PO .thursday lovastatin 20 mg tablet 20 mg PO QPM metformin 500 mg tablet extended release 24 hr 1,000 mg PO DAILY hydrochlorothiazide 12.5 mg tablet 12.5 mg PO DAILY triamcinolone acetonide 0.1 % cream topical 3XD dicyclomine 20 mg tablet 20 mg PO QID sertraline 25 mg tablet 25 mg PO QAM folic acid 1 mg tablet 1 mg PO DAILY Follow Up/Referrals: Provider,Not a Local [Primary Care Provider, Family Practice] Stand Alone Forms: MyHealth Info Instructions
[2025-01-22] MEDS: KETOROLAC 30 MG/ML inj IM (09:38)
[2025-01-22] MEDS: dexAMETHasone 10 MG/ML inj PO (09:46)
[2025-01-22 10:07] VITALS: RESP 16
== END 2025-01-22 09:50 | disposition home or self-care (01) ==
LOC: ED 09:29
PROVIDERS: Emergency Provider Emergency Medicine Emergency Medical Services
DX: M25.512 Pain in left shoulder (principal)
CPT/HCPCS: 96372; 99284; J1100; J1885

== ENCOUNTER 2025-07-21 12:42 | Emergency (ER) | payer MEDICARE, SELFPAY ==
[2025-07-21 12:55] VITALS: BP 144/73; PULSE 64; RESP 18; TEMP 37.2; O2SAT 95
--- NOTE | 2025-07-21 13:20 | CRLHL7_ITS ---
For Patients: As a result of the Century Cures Act, medical imaging exams and procedure reports are released immediately into your electronic medical record. You may view this report before your referring provider. If you have questions, please contact your health care provider. Indication: Pain, no trauma Technique: Two views right knee Comparison: Right knee 03/15/2024 Findings/Impression: Bones: No evidence of fracture. Joint spaces: Right knee osteoarthritis with marginal osteophytes. Mild chondrocalcinosis. No knee effusion. Soft tissues: Unremarkable. Dictated by John Cardenas MD @ 07/21/2025 2:10:21 PM (Electronically Signed)
--- NOTE | 2025-07-21 16:37 | ED.GENADULT ---
HPI - General Adult General Date Seen: 07/21/25 Chief complaint: Extremity Pain/Injury, Lower Stated complaint: R knee pain Time Seen by Provider: 07/21/25 16:35 History of Present Illness HPI narrative: 75-year-old female presenting to the ER today with right knee pain. It started yesterday evening around 10:30 p.m. and kept her up all night because it was intense. She has no recent injury or fall or twist. No definite overuse. No clear cause for her need to start hurting overnight. She has been trying ice and heat packs without much improvement. She does not think she has injured it, twisted it, or fallen. She told the triage nurse that she has not noticed any swelling. However, she tells me that she does feel like hernia swelling and she can see her kneecap as well as on her left leg and also she feels like the posterior fossa of her knee is little bit swollen. She was trying to wear a compression stocking on her calf but noticed that it was pinching in the back of her knee so she actually took it off. She is not having any pain distally in the calf, Achilles, ankle, or foot. No discoloration or pallor in her lower leg. No pain proximally in the femur, quad, hamstring, or thigh. No fever or chills. No other body aches myalgias. No shortness of breath. She has a past medical history of shoulder pain with an ER visit in January this summer. She also has a history of rheumatoid arthritis and is on methotrexate. She also has history of lichen sclerosis overactive bladder, depression, anxiety, carpal tunnel syndrome, hip osteoarthritis, hammertoes, diverticulosis, colon polyps, fatty liver, irritable bowel syndrome, GERD, type 2 diabetes, hyperlipidemia, hypertension. Related Data Home Medications ?Medication ?Instructions ?Recorded ?Confirmed dicyclomine 20 mg tablet 20 mg PO QID 05/10/24 07/21/25 folic acid 1 mg tablet 1 mg PO DAILY 05/10/24 07/21/25 hydrochlorothiazide 12.5 mg tablet 12.5 mg PO DAILY 05/10/24 07/21/25 losartan 50 mg tablet 50 mg PO DAILY 05/10/24 07/21/25 lovastatin 20 mg tablet 20 mg PO QPM 05/10/24 07/21/25 metformin 500 mg tablet,extended 1,000 mg PO DAILY 05/10/24 07/21/25 release 24 hr methotrexate sodium 2.5 mg tablet 15 mg PO .thursday05/10/24 07/21/25 sertraline 25 mg tablet 25 mg PO QAM 05/10/24 07/21/25 triamcinolone acetonide 0.1 % applic topical 3XD 05/10/24 09/13/24 topical cream Calcium PO 09/13/24 09/13/24 clobetasol 0.05 % topical cream 1 applic topical BID 09/13/24 07/21/25 clobetasol 0.05 % topical ointment 1 applic topical BID 09/13/24 07/21/25 ketoconazole 2 % shampoo 1 applic topical 2XW 09/13/24 07/21/25 omeprazole 20 mg tablet,delayed 20 mg PO QDAY 09/13/24 07/21/25 release Previous Rx's ?Medication ?Instructions ?Recorded cyclobenzaprine 10 mg tablet 10 mg PO TID #15 tabs 01/22/25 hydrocodone 5 mg-acetaminophen 325 1 tab PO Q4-6H PRN pain #15 tabs 01/22/25 mg tablet Allergies Allergy/AdvReac Type Severity Reaction Status Date / Time lisinopril AdvReac Intermediate Cough Verified 07/21/25 13:01 [facility] Medical History (Updated 07/21/25 @ 17:16 by Warren Butler MD) Tremor ?R25.1 - Tremor, unspecified (ICD-10) Bilateral shoulder pain ?M25.511 - Pain in right shoulder (ICD-10) ?M25.512 - Pain in left shoulder (ICD-10) Numbness ?R20.0 - Anesthesia of skin (ICD-10) Edema ?R60.9 - Edema, unspecified (ICD-10) Memory problem ?R41.3 - Other amnesia (ICD-10) Lichen sclerosus ?L90.0 - Lichen sclerosus et atrophicus (ICD-10) Overactive bladder ?N32.81 - Overactive bladder (ICD-10) Persistent cough ?R05.3 - Chronic cough (ICD-10) Lung nodules ?R91.8 - Other nonspecific abnormal finding of lung field (ICD-10) Depression, major, single episode, mild ?F32.0 - Major depressive disorder, single episode, mild (ICD-10) Depression with anxiety ?F41.8 - Other specified anxiety disorders (ICD-10) Peripheral sensory neuropathy ?G60.8 - Other hereditary and idiopathic neuropathies (ICD-10) Carpal tunnel syndrome ?G56.00 - Carpal tunnel syndrome, unspecified upper limb (ICD-10) Arthritis of both hips ?M16.0 - Bilateral primary osteoarthritis of hip (ICD-10) Pain of both hip joints ?M25.551 - Pain in right hip (ICD-10) ?M25.552 - Pain in left hip (ICD-10) Upper back pain ?M54.9 - Dorsalgia, unspecified (ICD-10) Sacro-iliac pain ?M53.3 - Sacrococcygeal disorders, not elsewhere classified (ICD-10) Hammertoe ?M20.40 - Other hammer toe(s) (acquired), unspecified foot (ICD-10) Arthritis ?M19.90 - Unspecified osteoarthritis, unspecified site (ICD-10) Osteopenia ?M85.80 - Other specified disorders of bone density and structure, unspecified site (ICD-10) Rheumatoid arthritis ?M06.9 - Rheumatoid arthritis, unspecified (ICD-10) Irregular bowel habits ?R19.8 - Other specified symptoms and signs involving the digestive system and abdomen (ICD-10) Diverticular disease of large intestine ?K57.30 - Diverticulosis of large intestine without perforation or abscess without bleeding (ICD-10) History of colonic polyps ?Z86.0100 - Personal history of colon polyps, unspecified (ICD-10) Chronic diarrhea ?K52.9 - Noninfective gastroenteritis and colitis, unspecified (ICD-10) Fatty liver ?K76.0 - Fatty (change of) liver, not elsewhere classified (ICD-10) Irritable bowel syndrome with diarrhea ?K58.0 - Irritable bowel syndrome with diarrhea (ICD-10) GERD (gastroesophageal reflux disease) ?K21.9 - Gastro-esophageal reflux disease without esophagitis (ICD-10) Nasal congestion ?R09.81 - Nasal congestion (ICD-10) Allergic rhinitis ?J30.9 - Allergic rhinitis, unspecified (ICD-10) Diabetes type 2, controlled ?E11.9 - Type 2 diabetes mellitus without complications (ICD-10) Hyperlipidemia LDL goal <100 ?E78.5 - Hyperlipidemia, unspecified (ICD-10) Chronic eczema ?L30.9 - Dermatitis, unspecified (ICD-10) Rash ?R21 - Rash and other nonspecific skin eruption (ICD-10) Hypertensive disease ?I10 - Essential (primary) hypertension (ICD-10) Surgical History (Updated 08/18/24 @ 14:24 by Marisol Ojeda ~ SOLUTION DESIGN AND ANALYSIS MANAGER, SOLUTION DESIGN AND ANALYSIS MANAGER) History of endometrial biopsy ?Z92.89 - Personal history of other medical treatment (ICD-10) H/O flexible sigmoidoscopy ?Z98.890 - Other specified postprocedural states (ICD-10) History of removal of ovarian cyst ?Z98.890 - Other specified postprocedural states (ICD-10) ?Z87.42 - Personal history of other diseases of the female genital tract (ICD-10) H/O dilation and curettage ?Z98.890 - Other specified postprocedural states (ICD-10) History of carpal tunnel release ?Z98.890 - Other specified postprocedural states (ICD-10) H/O: hysterectomy ?Z90.710 - Acquired absence of both cervix and uterus (ICD-10) S/P right rotator cuff repair ?Z98.890 - Other specified postprocedural states (ICD-10) Social History Smoking Status: Never smoker Do you use any of these nicotine containing products: None Second hand tobacco smoke exposure: No How often do you have a drink containing alcohol: monthly or less How many standard drinks containing alcohol do you have on a typical day: 1 or 2 AUDIT-C Alcohol total score: 1 Non-prescribed substance use: denies use service: No Exam Narrative: Exam Narrative: Constitutional: Appears well-developed and well-nourished. Alert. Conversant. Non toxic. Very polite. HENT: Head: Atraumatic. Nose: Nose normal. Mouth/Throat: Oral mucosa is clear and moist. no trismus. Pharynx normal. Tonsils symmetric. No tonsillar enlargement, erythema, or exudate. Eyes: Conjunctivae normal. EOM normal. Pupils equal, round, and reactive to light. No scleral icterus. Neck: Normal range of motion. Neck supple. No tracheal deviation present. Cardiovascular: Normal rate, regular rhythm. No gallop. No friction rub. No murmur heard. Symmetric PT and DP artery pulses normal brisk distal cap refill in both feet. Pulmonary/Chest: Effort normal. No stridor. No respiratory distress. No wheezes. No rales. No rhonchi . Musculoskeletal: RUE: Normal range of motion. No tenderness. No deformity LUE: Normal range of motion. No tenderness. No deformity RLE: She is complaining of knee pain. She does have subtle knee swelling and right knee is slightly warm to palpation but there is no erythema. I do think there is a very small amount of swelling around the knee with a basement of the fossa on the medial and lateral of patella. No definite ballotable effusion. Range of motion is from 90? to full extension but she does feel little bit discomfort when she fully extends. I do not feel any palpable swelling over the prepatellar area/prepatellar bursitis. No posterior tenderness. No medial or lateral joint line tenderness. No bony deformity. No bruising. Calf is nontender. No palpable cords. She does have pitting edema in her calf which is symmetric with the left leg. Ankle is nontender. Foot nontender. LLE: Normal range of motion. No edema. No tenderness. No deformity Lymph: No signs of redness or ascending lymphangitis Neurological: Alert and oriented to person, place, and time. Normal strength. CN II-VII intact. No sensory deficit. GCS eye subscore is 4. GCS verbal subscore is 5. GCS motor subscore is 6. Normal coordination Skin: Skin is warm and dry. No rash noted. No pallor. Normal capillary refill. Psychiatric: Normal mood. Normal affect. Const: Vital Signs, click to edit/add: Vital Signs - 24 hr 07/21/25 12:55 07/21/25 17:23 Temperature 99 F Pulse Rate 70 Pulse Rate [Right Pulse Oximeter] 64 Respiratory Rate 18 18 Blood Pressure 127/76 Blood Pressure [Ri ght Upper Arm] 144/73 H Pulse Oximetry 95 97 Oxygen Delivery Me thod Room Air Room Air Course Course ED Course: Patient presented to the ER today with atraumatic right knee pain and subtle swelling that began overnight last night. X-rays were obtained through the triage process and are negative for any acute fracture but do show some signs of mild arthritis. She was evaluated in ER room 4. At this point there is no evidence for any some new swelling in the calf to suggest DVT. She is not having any chest pain or shortness of breath. She does not have any signs of acute limb ischemia. She is not having any pain distally in the tibia/fibula, or ankle. This not appear to be an orthopedic injury. No pain from the hip that would suggest a referred hip joint pathology. She does have knee tenderness with subtle swelling there and almost I think there may be a small joint effusion and subtle warmth the knee. She does have a history of wound rheumatoid arthritis so this could be an autoimmune arthritis. However since she is on methotrexate, also consider possible infection. Also consider possible gout/crystalline arthritis. After discussion of risks and benefits we did attempt to do an arthrocentesis but we were not able to get any fluid out of the joint. I think that may be the swelling were detecting is more just soft tissue swelling rather than actually infusion. We did not perform the arthrocentesis through any redness or signs of clear inflammation or overlying cellulitis. She did have a low-grade temperature of 99. She does not otherwise have fever, chills, or systemic symptoms of illness. Discussed with the patient that this point the cause of her knee pain is unclear. At this point she is comfortable managing with pain meds at home. Discussed that if this is a septic arthritis she may develop worsening knee pain or fever or redness and if any worsening occurs she should return to the ER immediately. Assuming she is getting better would recommend close outpatient follow-up with the [facility]. She will call on Thursday to arrange for ER follow-up visit. Instymeds prescription for Percocet. Vital Signs Vital signs: Initial Vital Signs Temperature 99 F 07/21/25 12:55 Temperature Source Temporal Artery Scan 07/21/25 12:55 Pulse Rate 64 07/21/25 12:55 Pulse Rhythm Regular 07/21/25 12:55 Pulse Strength 3+ Normal 07/21/25 12:55 Respiratory Rate 18 07/21/25 12:55 Blood Pressure 144/73 H 07/21/25 12:55 Blood Pressure Mean 96 07/21/25 12:55 Blood Pressure Position Sitting 07/21/25 12:55 Pulse Oximetry 95 07/21/25 12:55 Oxygen Delivery Method Room Air 07/21/25 12:55 Vital Signs Temperature 99 F 07/21/25 12:55 Pulse Rate 64 07/21/25 12:55 Respiratory Rate 18 12/12/25 12:55 Blood Pressure 144/73 H 07/21/25 12:55 Pulse Oximetry 95 07/21/25 12:55 Oxygen Delivery Method Room Air 07/21/25 12:55 Temperature 99 F 07/21/25 12:55 Pulse Rate 70 07/21/25 17:23 Respiratory Rate 18 07/21/25 17:23 Blood Pressure 127/76 07/21/25 17:23 Pulse Oximetry 97 07/21/25 17:23 Oxygen Delivery Method Room Air 07/21/25 17:23 Medical Decision Making Imaging Data XR Knee: Attestation: I have reviewed the pertinent imaging results. Radiologist's impression: Findings/Impression: Bones: No evidence of fracture. Joint spaces: Right knee osteoarthritis with marginal osteophytes. Mild chondrocalcinosis. No knee effusion. Soft tissues: Unremarkable. Discharge Plan Discharge Clinical Impression: Acute pain of right knee Patient Disposition: Home, Self-Care Condition: Stable Instructions: Knee Pain (ED) Additional Instructions: As we discussed, use the prescription pain killer (Percocet) if needed. Be careful because this strong pain killer and can cause dizziness, drowsiness, constipation, and can be addictive. You can use your regular medications as well. If you have worsening or severe pain this weekend, high fever, increasing swelling or any new redness or warmth of your knee joint, please come back to the ER right away to be rechecked. Even if you are getting better, please follow-up with the [facility] within 3-4 days. You can call [phone] to arrange an ER follow-up visit. Prescriptions: No Action Calcium 500 mg PO clobetasol 0.05 % ointment 1 applic topical BID clobetasol 0.05 % cream 1 applic topical BID ketoconazole 2 % shampoo 1 applic topical 2XW omeprazole 20 mg tablet,delayed release (DR/EC) 20 mg PO QDAY losartan 50 mg tablet 50 mg PO DAILY methotrexate sodium 2.5 mg tablet 15 mg PO .thursday lovastatin 20 mg tablet 20 mg PO QPM metformin 500 mg tablet extended release 24 hr 1,000 mg PO DAILY hydrochlorothiazide 12.5 mg tablet 12.5 mg PO DAILY triamcinolone acetonide 0.1 % cream topical 3XD dicyclomine 20 mg tablet 20 mg PO QID sertraline 25 mg tablet 25 mg PO QAM folic acid 1 mg tablet 1 mg PO DAILY cyclobenzaprine 10 mg tablet 10 mg PO TID Qty: 15 0RF hydrocodone-acetaminophen 5-325 mg tablet 1 tab PO Q4-6H PRN (Reason: pain) Qty: 15 0RF Follow Up/Referrals: Provider,Not a Local [Primary Care Provider, Family Practice] Stand Alone Forms: [facility] Instructions
[2025-07-21 17:23] VITALS: BP 127/76; PULSE 70; RESP 18; O2SAT 97
--- OUTSIDE RECORDS SUMMARY | 2025-07-21 17:28 | XMS_ITS | Clinical Summary ---
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 Name Role Phone Mariola Huang MD Primary Care Provider [phone] Kassandra Harrington MD Unavailable [phone] Yonis Us Unavailable Unavail able Allergies Active AllergyReactionsCriticalityNoted KltsXcjusgkdWpzyswcktkJyqnp20/21/2011 Medications MedicationSigDispense QuantityRefillsLast FilledStart DateEnd DateStatus CALCIUM 500 WITH D 500 MG (1,250 MG)-400 UNIT TAB 3 tabs axjal766ctive folic acid 1 mg tablet Indications:Rheumatoid arthritis, involving unspecified site, unspecified rheumatoid factor presenceTake 1 tablet by mouth once daily.Active methotrexate (RHEUMATREX) 2.5 mg tablet Indications:Rheumatoid arthritis, involving unspecified site, unspecified whether rheumatoid factor present (HC)Take 5 tablet by mouth every Thursday.0 1Active clobetasol cream 0.05% (TEMOVATE) 0.05 % cream Indications:Lichen sclerosusApply topically to affected area(s) 2 times daily. Genital area, prescribed by MAIL SERVICE COORDINATOR Dr Reinoso2Active cholestyramine-aspartame (Cholestyramine Light) 4 gram powder Indications:Diarrhea, unspecified typeMix 4 g in liquid then take by mouth two times daily. 231 g 1105Active triamcinolone (ARISTOCORT; KENALOG) 0.1 % cream Indications:Chronic eczemaApply topically to affected area(s) three times daily. 80 g 5Active metFORMIN (GLUCOPHAGE XR) 500 mg Extended-Release tablet Indications:Controlled type 2 diabetes mellitus without complication, without long-term current use of insulin (HC)Take 2 Tablets (1,000 mg) by mouth once daily with evening meal. 360 Tablet 5Active sertraline (ZOLOFT) 25 mg tablet Indications:Depression, major, single episode, mildTake 1 Tablet (25 mg) by mouth once daily in the morning. 90 Tablet 5Active lovastatin 20 mg tablet Indications:Hyperlipidemia with target LDL less than 100Take 1 Tablet (20 mg) by mouth at bedtime. 90 Tablet 5Active hydroCHLOROthiazide 12.5 mg tablet Indications:Hypertension, unspecified typeTake 1 Tablet (12.5 mg) by mouth once daily. 90 Tablet 5Active losartan (COZAAR) 50 mg tablet Indications:Hypertension, unspecified typeTake 1 Tablet (50 mg) by mouth once daily. 90 Tablet 5Active dicyclomine (BENTYL) 20 mg tablet Indications:Irritable bowel syndrome with diarrheaTake 1 Tablet (20 mg) by mouth four times daily before meals and at bedtime. 360 Tablet 5Active omeprazole 20 mg tablet Indications:Gastroesophageal reflux disease without esophagitisTake 1 Tablet (20 mg) by mouth once daily before a meal. 90 Tablet 5Active Active Problems ProblemNoted DateDiagnosed DatePersistent cough03/16/20245568Wnawpj26/28/2022 Overview (08/06/2022): noticed tremors, mainly left hand last 2 wks, since beginning july 2022 Hypertensive ahakfbc4408/06/2022 Overview (08/06/2022): stable on current regimen Foot pain, left08/06/2022 Overview (08/06/2022): stable Diverticular disease of large vurmnvxmr19/25/2021S/P right rotator cuff repair 01/17/2021 Overview (01/17/2021): 10/17/20, doing therapy now, gradually improving Mild cognitive otdahotajh05/18/2019 Overview (07/27/2019): Saw neurology June 02, 2019, felt that it may be due to depression, patient is not as motivated,felt that she may have mild depression, treatment recommende Depression, major, single episode, mild07/27/2019 Overview (07/27/2019): pt with memory problems, saw neurologist, it was found that she has mild cognitive impairment, possibly due to depression, depression treatment recommended Nasal mthqnrqfpi43/06/2019 Overview (01/13/2019): Has been coughing, and congested, clear drainage, no fever or chills, no shortness of breath, no sore throat Chronic fikmol3501/13/2019 Overview (01/13/2019): Currently on triamcinolone which was prescribed by the market maker, this has been helping her Sacro-iliac pain01/15/2017 Overview (01/15/2017): both sides, worst on the right, start from the bottom and radiates down behind the thighs Upper back pain01/15/2017 Overview (01/15/2017): gets the pain after working in the garden, does not have it now, the pain comes and goes Pain of both hip xkqjjh6301/15/2017 Overview (01/15/2017): has an ache in the hips, worst with movement, but has a constant ache, worst on the right Arthritis of both hips01/15/2017 Overview (01/15/2017): xray showed sign of arthritis, pt having pain in both hips Peripheral sensory wlkdvbcdob47/08/2017 Overview (01/15/2017): has sensation of pin prick on the legs and waist line, keeps her up at night at time, bothering heroff and on for several weeks Bqzetcwo42/08/2017 Overview (10/15/2016): right 4th toe, none elsewhere Chronic jktamogl04/08/2017 Overview (10/15/2016): working with gi on this, still having the problem Bilateral shoulder pain10/15/2016 Overview (10/15/2016): since past July after putting up the [employer] tree, left is worst, decreased rom due to pain, unable to lie on it Diabetes type 2, /19/2015 Overview (06/28/2015): controlled with diet exercise and metformin, a1c has been rising Irregular bowel bllgjv7805/16/2015Depression with kzsqtjf4502/08/2013 Overview (01/02/2016): Stopped the celexa because of the dry mouth Zwqvodxog40/25/2013 Overview (02/01/2013): Low back and right hip seen on xray done 10/2012 Degenerative, lower lumbar spine, xray 12/06/07 Edema02/01/2013 Overview (02/01/2013): will consider echo Hyperlipidemia LDL goal < 9085311/02/2012Fatty liver06/22/2012 Overview (06/22/2012): Seen on CT 06/2012 Lung gvwqbcv9206/22/2012 Overview (03/14/2014): Seen on abdominal CT done 06/2012, repeat in 12 months done, stable, does not need to be repeated Memory jddpmfo5106/16/2012 Overview (12/16/2012): according to her she says, she will consider seeing the nerologist for further evaluation Saw neurology 12/15/12, felt to be secondary to depression and anxiey Zilvwmgpk21/09/7134Noqozizwcz09/26/2011 Overview (04/04/2011): Mild both femoral necks, bone density done 10/06/06 Znjpcvdiq04/26/2011 Overview (03/22/2015): Degenerative, lower lumbar spine, xray 12/06/07, both hips and spine seen on xray Allergic arkpwrwd98/26/2011Lichen ovrdemisi40/29/2011 Overview (03/07/2011): Use clobestasol, prescribed by obgyn Rheumatoid arthritis(714.0)03/07/2011 Overview (03/07/2011): Diagnosed by business management analyst 01/2011, currently on medication Irritable bowel syndrome with ivujdqzi71/04/2011 Overview (06/28/2015): Saw GI 07/19, 06/04/11 advised fiber, decrease bentyl and miralax for constipation, consider a tricyclic( amitriptyline), saw gi in april 2015, had colonoscopy, on Thursday met with GI, nothing worrisome seen, trying dietary changes and revaluation, using immodium and pepto Overactive xewxgrl5005/11/2010Rash03/04/2010 Overview (03/07/2011): Had 08/19 to 04/19 resolved eventually. Saw Early Childhood Assistant in 10/17, on diprolene, lotrisone, cutivate creams Carpal tunnel /01/2010 Overview (04/04/2011): Had procedure on the right, not yet on the left GERD (gastroesophageal reflux disease)12/28/2009History of colonic polyps 01/14/2008 Resolved Problems ProblemNoted DateDiagnosed DateResolved DateSevere obesity (BMI 35.0-39.9) with berkoyzffng722Complex endometrial hyperplasia with atypia Essential (primary) ehyglappvoht99 Overview (01/17/2022): stable on current regimen Yiaptwrxkbu67 Overview (05/20/2012): Patient to make changes and follow up in 08/2012 See letter 05/20/12 Need for shingles tinabqi84 Overview (05/07/2012): Will check with pharmacy Incontinence of urinePostmenopausal yfxsbozz91/21/2011 10/17/2021 Overview (08/30/2010): Saw Dr Donovan, had D& C, Internal hemorrhoids without mention of Unspecified hicejlssoqm66 Overview (02/07/2010): Last CPX -2008 (breast exam,pap) Last lipids -2008 Last colonoscopy -2007(repeat 5yrs) Obesity, vzjdiosbrpp07 Encounters DateTypeDepartmentCare SuznBunftfasrmh38/29/2025Telephone [facility] [place] [facility] [address] [place] [address] [place] [address] Mariola Huang MD Hxpglau6905/03/2025 3:10 PM CDTOffice Visit [facility] [address] [place] [address] Mariola Huang MD Medicare ANNUAL (subsequent) Visit (Will get flu shot today, just getting over a cold); Immunization/Ddsytypmq79/24/0330Hmbqtb52/21/2025Travelfrom Last 3 Months Immunizations ImmunizationAdministration DatesNext DueCOVID-19 VACCINE SPIKEVAX (MODERNA 50MCG/0.5ML) 12YO+ PFS09/28/2024,09/03/2023,3COVID-19 vaccine (Moderna 50mcg/0.5mL) 12YO+ BIVALENT PF, MDV2COVID-19 vaccine (GoFormz-BioNTech 30mcg/0.3mL) PF MDV1,10/27/2020,10/06/2020Influenza A (H1N1), Bwfqsdmhyip72/04/2010Influenza, High-dose Spdidtevsdv70/01/2024,04/04/2016, 06/28/2015,05/26/2014Influenza, IIV3 (Age >=3 years)05/17/2013,05/07/2012, 05/10/2011,04/30/2010Influenza, Inactivated AIIV4 (Age 65+ Years) Preserv Free 06/02/2023,05/01/2022,05/23/2021,05/22/2020Influenza, Inactivated IIV3 (Age 65+ Years) Preserv Free05/03/2025,04/15/2019,04/22/2018,04/21/2017Pneumococcal Poly,23-Valent (Pneumovax)02/01/2013Pneumococcal conj 13-Valent (Prevnar 13) 06/28/2015RSV, Recombinant ADJ Reconstituted (Arexvy 120MCG/0.5mL)03/18/2024Td, Preservative Free (age >= 7 Years)10/15/2016Tdap10/01/2006Zoster (Shingrix-RZV, recombinant)04/18/2019,01/14/2019Zoster (Zostavax-ZVL, live)06/13/2013 Family History Medical HistoryRelationNameCommentsOtherFatherblood disorderStrokeFatherCancer Maternal GrandfathertesticularCOPDMaternal UncleArthritisMotherDiabetesMother HypertensionMotherCancerPaternal GrandfatherlungCancer-breastNo Family History Cancer-ovarianNo Family HistoryRelationNameStatusCommentsBrother 1AliveBrother 2 AliveBrother 3AliveFatherDeceasedMaternal GrandfatherMaternal UncleDeceased MotherDeceasedPaternal GrandfatherSisterAlive Social History Tobacco UseTypesPacks/DayYears UsedDateSmoking Tobacco: NeverSmokeless Tobacco: Never Tobacco Cessation:Counseling Given: No Alcohol UseStandard Drinks/WeekCommentsYes0 (1 standard drink = 0.6 oz pure alcohol)0-1 drink per week (liquor)- updated 12/03/23PHQ-2AnswerDate RecordedPHQ- 2 TOTAL YWASA340Social ConnectionsAnswerDate RecordedDo you often feel lonely or isolated from those around you?Financial Resource Strain AnswerDate RecordedDifficulty of Paying Living Bmkgbbel156/23/2025Difficulty of Paying Living ExpensesNot on file05/02/2025Food InsecurityAnswerDate RecordedDo you worry your food will run out before you are able to buy more? Transportation NeedsAnswerDate RecordedDoes lack of transportation keep you from medical appointments?Does lack of transportation keep you from work, meetings or getting things that you need?Housing StabilityAnswerDate RecordedWhat is your housing situation today?UtilitiesAnswerDate RecordedDo you have trouble paying for utilities (for example, heat, electricity, water, phone)?CommentsNoSex and Gender InformationValueDate RecordedSex Assigned at BirthNot on fileLegal SexFemale 08/23/2012 6:25 AM CSTGender IdentityNot on fileSexual OrientationNot on file OccupationIndustryJob Start DateJob End DateretiredNot on fileNot on fileNot on file Obstetrics History GravidaParaTermPretermABIABSABEctopicMultipleLivingLive Tavuqo57 Last Filed Vital Signs Vital SignReadingTime TakenCommentsBlood Erxfkufp565/6409 3:25 PM CDT Fpriv214905/03/2025 3:25 PM KBXYqljiqlohsj23.3 ??C (97.4 ??F)02/04/2024 2:08 PM CDTRespiratory Pkes765509/04/2018 9:07 AM CSTOxygen Wllzmhktde00%05/03/2025 3:25 PM CDTInhaled Oxygen Concentration--Lesfyc78.1 kg (192 lb)05/03/2025 3:25 PM CDT Joachq688.6 cm (5' 4)05/03/2025 3:25 PM CDTBody Mass Index32.9605/03/2025 3:25 PM CDT Plan of Treatment DateTypeDepartmentCare Team (Latest Contact Info)Sybeovdtosi96/23/2025 11:25 AM CSTOffice Visit [facility] [place] [address] [facility] [address] [place] [address] Mariola Huang MD [address] [facility] [address] [place] [address] Health MaintenanceDue DateLast DoneCommentsCOVID-19 vaccine series (2024- season), 05/19/2024, 09/03/2023, Additional history exists BMI (ht and wt on same day) for age 18+, 09/28/2024, 03/16/2024, Additional history existsDepression screening for age 12+05/03/2026 05/03/2025, 03/16/2024, 02/12/2023, Additional history existsMedicare Wellness for age 65+, 03/16/2024, 02/12/2023, Additional history existsTetanus sqvkvsu62/03/2017, 10/01/2006, 10/01/2006 (Completed outside of [facility])DEXA/DXA scan for age 65+Liewcwgwd32/11/2013, 04/02/2010, 10/06/2006Hepatitis C screening for age 18-38Cufwlwtgd22/11/2015Pneumococcal series for age 50+Uadowiutv46/19/2015, 02/01/2013Zoster (shingles) series for age 50+Zwdwwgvpn58/09/2019, 01/14/2019, 06/13/2013RSV vaccine for adults or nisxqulqvAimcfvuob27/09/2024Influenza VqsumgcHkhhtvymz34/24/2025, 05/10/2024, 06/02/2023, Additional history existsHepatitis B series for 19+Aged OutNo longer eligible based on patient's age to complete this topic Procedures Procedure NamePriorityDate/TimeAssociated DiagnosisCommentsURINE ALBUMIN TO CREATININE RATIO, SUEMYDUxwydrz37/24/2025 4:48 PM CDT Controlled type 2 diabetes mellitus without complication, without long-term current use of insulin (HC) CBC WITH AUTO AYBQJTPITVDLKttnkgp41/24/2025 3:21 PM CDT Medicare annual wellness visit, subsequent HEMOGLOBIN A1C MONITORING (POCT)Ysxazsh8605/03/2025 3:21 PM CDT Controlled type 2 diabetes mellitus without complication, without long-term current use of insulin (HC) VITAMIN D 25 (DEFICIENCY)Ppnbbkz8305/03/2025 3:21 PM CDT Vitamin D deficiency COMP METABOLIC LIJLVZkkkqqy27/24/2025 3:21 PM CDT Hyperlipidemia LDL goal < 100 LIPID PANEL W REFLEX MEASURED JETYbygppa35/24/2025 3:21 PM CDT Hyperlipidemia LDL goal < 100 MYIUgbzyzv43/24/2025 3:21 PM CDT Hyperlipidemia LDL goal < 100 CBC WITH AUTO PDKEBWLWCRFXWlpjtht48/24/2025 3:21 PM CDT Medicare annual wellness visit, subsequent ANTI VRYQvpbjfv23/11/2015 10:04 AM CDT Need for hepatitis C screening test XR DXA BONE DENSITY 2 SITES LTICHFlmoura27/11/2013 12:00 PM CDT Post-menopausal from Last 3 Months or Most Recently Relevant to Health Maintenance Results * URINE ALBUMIN TO CREATININE RATIO, RANDOM (05/03/2025 4:48 PM CDT)Component ValueRef RangeTest MethodAnalysis TimePerformed AtPathologist SignatureALB RAND URINE<12.0mg/L05/03/2025 11:24 PM [facility]-CENTRAL LABORATORYCREATININE,URINE1.46g/L05/03/2025 11:24 PM [facility] LAB[facility]-CENTRAL LABORATORYALBUMIN TO CREATININE RATIO,RAND UR05/03/2025 11:24 PM [facility] LABORATORY-CENTRAL LABORATORYComment:Urine Albumin below measurement range, unable to calculate.Specimen (Source)Anatomical Location / LateralityCollection Method / VolumeCollection TimeReceived Time UrineURINE SPECIMEN / UnknownNon-Blood / Epfykgh6205/03/2025 4:48 PM CDT 05/03/2025 4:48 PM CDT Narrative [facility]-CENTRAL LABORATORY - 05/03/2025 11:24 PM CDT If Albumin to Creatinine Ratio is elevated, consider the following: ?? Elevations seen with incipient nephropathy associated ?? with diabetes mellitus or hypertension. Stress, exercise,hematuria, ?? and urinary tract infection may also produce elevated results. If clinically indicated, confirm with ?24 Hour Albumin to Creatinine Ratio. ?? Authorizing ProviderResult TypeResult StatusHarriSuzanne Huang MDURINEFinal ResultPerforming OrganizationAddressCity/State/ZIP CodePhone Number [facility]-CENTRAL LABORATORY [address] [place] [address], * (ABNORMAL) CBC WITH AUTO DIFFERENTIAL (05/03/2025 3:21 PM CDT)ComponentValue Ref RangeTest MethodAnalysis TimePerformed AtPathologist SignatureWHITE BLOOD CELL COUNT9.63.8 - 10.8 Thousand/uL05/03/2025 3:42 PM [facility] [place]RED BLOOD CELL COUNT3.64(L)3.80 - 5.10 Million/uL 05/03/2025 3:42 PM [facility] [place] CITYHEMOGLOBIN11.6(L) 11.7 - 15.5 g/dL05/03/2025 3:42 PM [facility] [place] STIDNEVNZB97.335.0 - 45.0 %05/03/2025 3:42 PM [facility] [place] CITYMCV97.080.0 - 100.0 fL05/03/2025 3:42 PM [facility] [place] CITYMCH31.927.0 - 33.0 pg05/03/2025 3:42 PM [facility] [place] CITYMCHC32.932.0 - 36.0 g/dL05/03/2025 3:42 PM CDT [facility] CLINICComment: For adults, a slight decrease in the calculated MCHC value (in the range of 30 to 32 g/dL) is most likely not clinically significant; however, it should be interpreted with caution in correlation with other red cell parameters and the patient's clinical condition. RDW13.411.0 - 15.0 %05/03/2025 3:42 PM CDCL[facility] [place] QOZKE476690 - 400 Thousand/uL05/03/2025 3:42 PM CDST. [facility] CLINICMPV9.97.5 - 12.5 fL05/03/2025 3:42 PM CDST. [facility] VRQEPLVZUYBKSLYKU50.3%05/03/2025 3:42 PM [facility] NDDUUOLCVGXDKXPAO17.8%05/03/2025 3:42 PM [facility] CLINICMONOCYTES6.0%05/03/2025 3:42 PM [facility] CLINICEOSINOPHILS1.6%05/03/2025 3:42 PM [facility] CLINICBASOPHILS0.3%05/03/2025 3:42 PM CDST[facility] CLINICABSOLUTE [id number] - 7800 cells/uL05/03/2025 3:42 PM CDST[facility] CLINICAB[facility] KWXGPPWHAPI4178530 - 3900 cells/05/03/2025 3:42 PM CDTALGREENE [facility] CLINICABSOLUTE MSSRNORBM049353 - 950 cells/05/03/2025 3:42 PM CDCLAREM[facility] CL[facility]OREABSOLUTE ZHXHCDVFIWR82403 - 500 cells/05/03/2025 3:42 PM CDST. [facility] CLINICABSOLUTE KBUHZAVYP723 - 200 cells/05/03/2025 3:42 PM CDST. [facility]IC [facility]PITAL CLINICSpecimen (Source)Anatomical Location / LateralityCollection Method / VolumeCollection TimeReceived TimeBlood BLOOD SPECIMEN / UnknownQuest Collect / Slaopnn5505/03/2025 3:21 PM CDT05/03/2025 3:21 PM CDT Narrative Authorizing ProviderResult TypeResult StatusHarriSuzanne Huang MDHEMATOLOGYFinal ResultPerforming OrganizationAddressCity/State/ZIP CodePhone Number [facility] [address] [place] [address], [facility] [place] [address] [place] [address] * LIPID PANEL W REFLEX MEASURED LDL (05/03/2025 3:21 PM CDT)ComponentValueRef RangeTest MethodAnalysis TimePerformed AtPathologist SignatureCHOLESTEROL, SXZUP311<200 mg/dL05/04/2025 4:00 AM CDTQUEST JEOPQCTBLUHLSKOLJMKJORDH965<150 mg/dL05/04/2025 4:00 AM CDTQUEST DIAGNOSTICSHDL TFXMGPWDFQW34> OR = 50 mg/dL 05/04/2025 4:00 AM CDTQUEST DIAGNOSTICSNON HDL PRXBFKEKWBO92<130 mg/dL (calc) 05/04/2025 4:00 AM CDTQUEST DIAGNOSTICSComment: For patients with diabetes plus 1 major ASCVD risk factor, treating to a non-HDL-C goal of <100 mg/dL (LDL-C of <70 mg/dL) is considered a therapeutic option. CHOL/HDLC RATIO2.3<5.0 (calc)05/04/2025 4:00 AM CDT[facility] LDL-UECPDHFQNPH32xk/dL (calc)05/04/2025 4:00 AM CDTQUEST DIAGNOSTICSComment: Reference range: <100 Desirable range <100 mg/dL for primary prevention; <70 mg/dL for patients with CHD or diabetic patients with > or = 2 CHD risk factors. LDL-C is now calculated using the Nir-Jeison calculation, which is a validated novel method providing better accuracy than the Friedewald equation in the estimation of LDL-C. Nir SS et al. DAVID. 2013;310(19): 2504-3229 (http://education.PerspecSys.Qbaka/faq/ANW293) Specimen (Source)Anatomical Location / LateralityCollection Method / Volume Collection TimeReceived TimeBloodBLOOD SPECIMEN / UnknownQuest Collect / Unknown 05/03/2025 3:21 PM CDT05/03/2025 3:21 PM CDT Narrative [facility] - 05/04/2025 4:00 AM CDT FASTING:NO FASTING: NO Authorizing ProviderResult TypeResult StatusHarriet L Enubuzor MDCHEMISTRYFinal ResultPerforming OrganizationAddressCity/State/ZIP CodePhone Number [facility] [address] [place] [address], [place] [phone] * VITAMIN D 25 (DEFICIENCY) (05/03/2025 3:21 PM CDT)ComponentValueRef RangeTest MethodAnalysis TimePerformed AtPathologist SignatureVITAMIN D,25-OH,TOTAL,IA30 30 - 100 ng/mL05/04/2025 3:39 AM CDTQUEST DIAGNOSTICSComment: Vitamin D Status ? 25-OH Vitamin D: Deficiency: <20 ng/mL Insufficiency: ? 20 - 29 ng/mL Optimal: > or = 30 ng/mL For 25-OH Vitamin D testing on patients on D2-supplementation and patients for whom quantitation of D2 and D3 fractions is required, the QuestAssureD(TM) 25-OH VIT D, (D2,D3), LC/MS/MS is recommended: order code 43549 (patients >2yrs). See Note 1 Note 1 For additional information, please refer to http://education.PerspecSys.Qbaka/faq/VAO646 (This link is being provided for informational/ educational purposes only.) Specimen (Source)Anatomical Location / LateralityCollection Method / Volume Collection TimeReceived TimeBloodBLOOD SPECIMEN / UnknownQuest Collect / Unknown 05/03/2025 3:21 PM CDT05/03/2025 3:21 PM CDT Narrative [facility] - 05/04/2025 3:39 AM CDT FASTING:NO FASTING: NO Authorizing ProviderResult TypeResult StatusHarriet L Enubuzor MDSEND OUTSFinal ResultPerforming OrganizationAddressCity/State/ZIP CodePhone Number [facility] [address] [place] [address], [place] [phone] * TSH (05/03/2025 3:21 PM CDT)ComponentValueRef RangeTest MethodAnalysis Time Performed AtPathologist SignatureTSH3.150.40 - 4.50 mIU/L05/04/2025 3:39 AM CDTQUEST DIAGNOSTICSSpecimen (Source)Anatomical Location / Laterality Collection Method / VolumeCollection TimeReceived TimeBloodBLOOD SPECIMEN / UnknownQuest Collect / Hwuunvh2305/03/2025 3:21 PM CDT05/03/2025 3:21 PM CDT Narrative [facility] - 05/04/2025 3:39 AM CDT FASTING:NO FASTING: NO Authorizing ProviderResult TypeResult StatusHarriet L Enubuzor MDCHEMISTRYFinal ResultPerforming OrganizationAddressCity/State/ZIP CodePhone Number [facility] [address] [address], [place] [phone] * HEMOGLOBIN A1C MONITORING (POCT) (05/03/2025 3:21 PM CDT)ComponentValueRef RangeTest MethodAnalysis TimePerformed AtPathologist SignaturePOC HEMOGLOBIN A1C5.9<6.0 % OF TOTAL HGB05/03/2025 3:37 PM [facility] [place] [facility]Comment: Any point of care results exhibiting inconsistency with the patient's clinical status should be repeated using a different testing method. Specimen (Source)Anatomical Location / LateralityCollection Method / Volume Collection TimeReceived TimeBloodBLOOD SPECIMEN / UnknownQuest Collect / Unknown 05/03/2025 3:21 PM CDT05/03/2025 3:21 PM CDT Narrative Authorizing ProviderResult TypeResult StatusHarriet L Enubuzor MDCHEMISTRYFinal ResultPerforming OrganizationAddressCity/State/ZIP CodePhone Number [facility] [address] [address], [place] [phone] [address] * (ABNORMAL) COMP METABOLIC PANEL (05/03/2025 3:21 PM CDT)ComponentValueRef RangeTest MethodAnalysis TimePerformed AtPathologist QrkmoyztpYMRNUR482545 - 146 mmol/L05/04/2025 4:00 AM CDTQUEST DIAGNOSTICSPOTASSIUM4.03.5 - 5.3 mmol/L 05/04/2025 4:00 AM CDTQUEST WTVKOSXEDWGJTVIYYZZ05451 - 110 mmol/L05/04/2025 4:00 AM CDTQUEST DIAGNOSTICSCARBON SEHFREZ9698 - 32 mmol/L05/04/2025 4:00 AM CDTQUEST FDARJARGLCZMJWDUUW5207 - 139 mg/dL05/04/2025 4:00 AM CDTQUEST DIAGNOSTICSComment: ? Non-fasting reference interval CALCIUM8.68.6 - 10.4 mg/dL05/04/2025 4:00 AM CDTQUEST DIAGNOSTICSCREATININE0.99 0.60 - 1.00 mg/dL05/04/2025 4:00 AM CDTQUEST DIAGNOSTICSBUN/CREATININE RATIOSEE NOTE: (calc)05/04/2025 4:00 AM CDTQUEST DIAGNOSTICSComment: ?? Not Reported: BUN and Creatinine are within ?? reference range. ? EGFR59(L)> OR = 60 mL/min/1.45u85005/04/2025 4:00 AM CDTQUEST DIAGNOSTICSALBUMIN 3.93.6 - 5.1 g/dL05/04/2025 4:00 AM CDTQUEST DIAGNOSTICSPROTEIN, TOTAL6.76.1 - 8.1 g/dL05/04/2025 4:00 AM CDTQUEST DIAGNOSTICSBILIRUBIN, TOTAL0.40.2 - 1.2 mg/dL05/04/2025 4:00 AM CDTQUEST DIAGNOSTICSALKALINE CQDDSEKNGWC2277 - 153 U/L 05/04/2025 4:00 AM CDTQUEST PSYKPZCLHECKHZ049 - 29 U/L05/04/2025 4:00 AM CDT [facility] SOQXWGZXXSZUDN3856 - 35 U/L05/04/2025 4:00 AM CDTQUEST DIAGNOSTICSUREA NITROGEN (BUN)197 - 25 mg/dL05/04/2025 4:00 AM CDTQUEST DIAGNOSTICSGLOBULIN2.8 1.9 - 3.7 g/dL (calc)05/04/2025 4:00 AM CDTQUEST DIAGNOSTICSALBUMIN/GLOBULIN RATIO1.41.0 - 2.5 (calc)05/04/2025 4:00 AM CDTQUEST DIAGNOSTICSSpecimen (Source) Anatomical Location / LateralityCollection Method / VolumeCollection Time Received TimeBloodBLOOD SPECIMEN / UnknownQuest Collect / [id number]/03/2025 3:21 PM CDT05/03/2025 3:21 PM CDT Narrative [facility] - 05/04/2025 4:00 AM CDT FASTING:NO FASTING: NO Authorizing ProviderResult TypeResult StatusHarriet L Enubuzor MDCHEMISTRYFinal ResultPerforming OrganizationAddressCity/State/ZIP CodePhone Number [facility] [address] [phone], * ANTI HCV [88699.2] (03/20/2015 10:04 AM CDT)ComponentValueRef RangeTest Method Analysis TimePerformed AtPathologist SignatureHEPATITIS C ANTIBODYNon-Reactive Non-Reactive 03/20/2015 2:34 PM CDTALPERSON [facility]ITALCENTRAL LABORATORYSpecimen (Source)Anatomical Location / LateralityCollection Method / VolumeCollection TimeReceived TimeBlood specimen (specimen)BLOOD SPECIMEN / UnknownVenipuncture / [id number]/20/2015 10:04 AM CDT03/20/2015 10:04 AM CDT Narrative [facility] - 03/20/2015 2:34 PM CDT Antibodies to HCV not detected; does not exclude the possibility of exposure to HCV. Authorizing ProviderResult TypeResult StatusHarriet L Enubuzor MDSEND OUTSFinal ResultPerforming OrganizationAddressCity/State/ZIP CodePhone Number [facility] [address] [place] [address], [place] * XR DXA BONE DENSITY 2 SITES (02/17/2013 12:00 PM CDT)Anatomical Region LateralityModalitySpine, HIPS, HIPL, HIPROther Narrative 02/18/2013 8:36 AM CDT Procedure Note Scanner - 02/17/2013 12:00 PM CDT Authorizing ProviderResult TypeResult StatusHarriet L Enubuzor MDDEXAFinal Result from Last 3 Months or Most Recently Relevant to Health Maintenance Insurance * Guarantor: Cailin Trejo LAccount TypeRelation to PatientDate of BirthPhone Billing AddressPersonal/MwgeagOsib1950 [id number] [address] [place] [id number] Advance Directives TypeDate RecordedPatient RepresentativeExplanationHealthcare Directive02/05/2023 02/05/2023 * Full Code (Latest Code Status on File) Date ActivatedDate InactivatedComments04/23/2016 11:36 AM04/23/2016 6:16 PM * Full Code Date ActivatedDate InactivatedComments04/23/2016 7:25 AM04/23/2016 11:36 AM Care Teams Team MemberRelationshipSpecialtyStart DateEnd Date Mariola Huang MD [address] [place] [id number] PCP - GeneralFamily Practice08/21/10 Kassandra Harrington MD [address] [place] [id number] Rheumatology12/12/14 Yonis Us PA [address] [place] [address] Physician Assistant12/12/14
== END 2025-07-21 17:40 | disposition home or self-care (01) ==
LOC: ED 17:26
PROVIDERS: Emergency Provider Emergency Medicine
DX: M25.561 Pain in right knee (principal)
CPT/HCPCS: 73560; 99283; 99284

== ENCOUNTER 2025-07-22 11:27 | Outpatient (CLI) | payer MEDICARE, SELFPAY | END 2025-07-22 11:28 | disposition home or self-care (01) | LOC: AMB 07-24 17:15 | PROVIDERS: Visit Provider Family Medicine | DX: M25.561 Pain in right knee (principal) | CPT/HCPCS: A0425; A0427 ==

== ENCOUNTER 2025-07-22 12:08 | Inpatient (IN) | payer MEDICARE, SELFPAY ==
[2025-07-22] VITALS (28 sets, daily range): BP systolic 98–168; BP diastolic 59–89; PULSE 71–94; RESP 14–22; TEMP 36.6–36.9; O2SAT 86–99; BMI 33.8
--- OUTSIDE RECORDS SUMMARY | 2025-07-22 12:11 | XMS_ITS | Clinical Summary ---
Author Organization [facility] Address [address] [place] [address] Care Team Providers Care Technician Inventory Specialist Name Role Phone Mariola Huang MD Primary Care Provider [phone] Kassandra Harrington MD Unavailable [phone] Yonis Us Unavailable Unavail able Allergies Active AllergyReactionsCriticalityNoted AnljPqulsvvgEwufkltjzpFsgoe58/21/2011 Medications MedicationSigDispense QuantityRefillsLast FilledStart DateEnd DateStatus CALCIUM 500 WITH D 500 MG (1,250 MG)-400 UNIT TAB 3 tabs rowfr362ctive folic acid 1 mg tablet Indications:Rheumatoid arthritis, involving unspecified site, unspecified rheumatoid factor presenceTake 1 tablet by mouth once daily.Active methotrexate (RHEUMATREX) 2.5 mg tablet Indications:Rheumatoid arthritis, involving unspecified site, unspecified whether rheumatoid factor present (HC)Take 5 tablet by mouth every Thursday.0 1Active clobetasol cream 0.05% (TEMOVATE) 0.05 % cream Indications:Lichen sclerosusApply topically to affected area(s) 2 times daily. Genital area, prescribed by CALCULUS TEACHER Dr Reinoso2Active cholestyramine-aspartame (Cholestyramine Light) 4 gram [...] Tablet 5Active Active Problems ProblemNoted DateDiagnosed DatePersistent cough03/16/20242341Jxinfk43/28/2022 Overview (08/06/2022): noticed tremors, mainly left hand last 2 wks, since beginning july 2022 Hypertensive aymkbwy4708/06/2022 Overview (08/06/2022): stable on current regimen Foot pain, left08/06/2022 Overview (08/06/2022): stable Diverticular disease of large bsljwbujz95/25/2021S/P right rotator cuff repair 01/17/2021 Overview (01/17/2021): 10/17/20, doing therapy now, gradually improving Mild cognitive fhmvojsdpn35/18/2019 Overview (07/27/2019): Saw neurology June 02, 2019, felt that it may be due to depression, patient is not as motivated,felt that she may have mild depression, treatment recommende Depression, major, single episode, mild07/27/2019 Overview (07/27/2019): pt with memory problems, saw neurologist, it was found that she has mild cognitive impairment, possibly due to depression, depression treatment recommended Nasal lykgerplae98/06/2019 Overview (01/13/2019): Has been coughing, and congested, clear drainage, no fever or chills, no shortness of breath, no sore throat Chronic xzfwus8101/13/2019 Overview (01/13/2019): Currently on triamcinolone which was prescribed by the snow technician, this has been helping her Sacro-iliac pain01/15/2017 Overview (01/15/2017): both sides, worst on the right, start from the bottom and radiates down behind the thighs Upper back pain01/15/2017 Overview (01/15/2017): gets the pain after working in the garden, does not have it now, the pain comes and goes Pain of both hip vivwkg3101/15/2017 Overview (01/15/2017): has an ache in the hips, worst with movement, but has a constant ache, worst on the right Arthritis of both hips01/15/2017 Overview (01/15/2017): xray showed sign of arthritis, pt having pain in both hips Peripheral sensory aqfhgwyrzj14/08/2017 Overview (01/15/2017): has sensation of pin prick on the legs and waist line, keeps her up at night at time, bothering heroff and on for several weeks Cegrmdvr17/08/2017 Overview (10/15/2016): right 4th toe, none elsewhere Chronic udgfdref27/08/2017 Overview (10/15/2016): working with gi on this, still having the problem Bilateral shoulder pain10/15/2016 Overview (10/15/2016): since past July after putting up the [employer] tree, left is worst, decreased rom due to pain, unable to lie on it Diabetes type 2, lswqahpaae14/19/2015 Overview (06/28/2015): controlled with diet exercise and metformin, a1c has been rising Irregular bowel ypttvv0405/16/2015Depression with plbivnt0902/08/2013 Overview (01/02/2016): Stopped the celexa because of the dry mouth Eestfodsq95/25/2013 Overview (02/01/2013): Low back and right hip seen on xray done 10/2012 Degenerative, lower lumbar spine, xray 12/06/07 Edema02/01/2013 Overview (02/01/2013): will consider echo Hyperlipidemia LDL goal < 0291611/02/2012Fatty liver06/22/2012 Overview (06/22/2012): Seen on CT 06/2012 Lung ldigqnz8106/22/2012 Overview (03/14/2014): Seen on abdominal CT done 06/2012, repeat in 12 months done, stable, does not need to be repeated Memory mwyeffo4406/16/2012 Overview (12/16/2012): according to her she says, she will consider seeing the nerologist for further evaluation Saw neurology 12/15/12, felt to be secondary to depression and anxiey Rjryabhhv12/09/1874Umbgnrtvvc61/26/2011 Overview (04/04/2011): Mild both femoral necks, bone density done 10/06/06 Nvktfiwmq47/26/2011 Overview (03/22/2015): Degenerative, lower lumbar spine, xray 12/06/07, both hips and spine seen on xray Allergic /26/2011Lichen zyuunrjyn38/29/2011 Overview (03/07/2011): Use clobestasol, prescribed by obgyn Rheumatoid arthritis(714.0)03/07/2011 Overview (03/07/2011): Diagnosed by physics instructor 01/2011, currently on medication Irritable bowel syndrome with rmpgemhk07/04/2011 Overview (06/28/2015): Saw GI 07/19, 06/04/11 advised fiber, decrease bentyl and miralax for constipation, consider a tricyclic( amitriptyline), saw gi in april 2015, had colonoscopy, on Thursday met with GI, nothing worrisome seen, trying dietary changes and revaluation, using immodium and pepto Overactive snwsrtk5805/11/2010Rash03/04/2010 Overview (03/07/2011): Had 08/19 to 04/19 resolved eventually. Saw Raw Stock Dyeing Machine Tender in 10/17, on diprolene, lotrisone, cutivate creams Carpal tunnel dsyoygct25/01/2010 Overview (04/04/2011): Had procedure on the right, not yet on the left GERD (gastroesophageal reflux disease)12/28/2009History of colonic polyps 01/14/2008 Resolved Problems ProblemNoted DateDiagnosed DateResolved DateSevere obesity (BMI 35.0-39.9) with dvspxcxztft492Complex endometrial hyperplasia with atypia Essential (primary) noatfobssuti98 Overview (01/17/2022): stable on current regimen Tsiibdujyck33 Overview (05/20/2012): Patient to make changes and follow up in 08/2012 See letter 05/20/12 Need for shingles hsfdenz10 Overview (05/07/2012): Will check with pharmacy Incontinence of urinePostmenopausal xrpduckp19/21/2011 10/17/2021 Overview (08/30/2010): Saw Dr Donovan, had D& C, Internal hemorrhoids without mention of bzewbctuwgll84 Unspecified jxlwvlebmfb25 Overview (02/07/2010): Last CPX -2008 (breast exam,pap) Last lipids -2008 Last colonoscopy -2007(repeat 5yrs) Obesity, fovkcikwqbg80 Encounters DateTypeDepartmentCare UqzpUljgggrqsdi48/29/2025Telephone [facility] [place] [address] [place] [address] [place] [address] Mariola Huang MD Wpivhxr0905/03/2025 3:10 PM CDTOffice Visit [facility] [place] [address] [place] [address] Mariola Huang MD Medicare ANNUAL (subsequent) Visit (Will get flu shot today, just getting over a cold); Immunization/Njxiqopsg81/24/1978Emlzrx09/21/2025Travelfrom Last 3 Months Immunizations ImmunizationAdministration DatesNext DueCOVID-19 VACCINE SPIKEVAX (MODERNA 50MCG/0.5ML) 12YO+ PFS09/28/2024,09/03/2023,3COVID-19 vaccine (Moderna 50mcg/0.5mL) 12YO+ BIVALENT PF, MDV2COVID-19 vaccine (incuBET-BioNTech 30mcg/0.3mL) PF MDV1,10/27/2020,10/06/2020Influenza A (H1N1), Iorivjlfyvw37/04/2010Influenza, High-dose Txxtwdrucku11/01/2024,04/04/2016, 06/28/2015,05/26/2014Influenza, IIV3 (Age >=3 years)05/17/2013,05/07/2012, 05/10/2011,04/30/2010Influenza, Inactivated [...] week (liquor)- updated 12/03/23PHQ-2AnswerDate RecordedPHQ- 2 TOTAL QOQUB778Social ConnectionsAnswerDate RecordedDo you often feel lonely or isolated from those around you?Financial Resource Strain AnswerDate RecordedDifficulty of Paying Living Yvaepxzy467/23/2025Difficulty of Paying Living ExpensesNot on file05/02/2025Food InsecurityAnswerDate [...] on fileNot on file Obstetrics History GravidaParaTermPretermABIABSABEctopicMultipleLivingLive Yqkxmi82 Last Filed Vital Signs Vital SignReadingTime TakenCommentsBlood Phjgrahf496/6409 3:25 PM CDT Hpppf596705/03/2025 3:25 PM JEGOmebgtnizss75.3 ??C (97.4 ??F)02/04/2024 2:08 PM CDTRespiratory Sxfa024509/04/2018 9:07 AM CSTOxygen Facnautwyy95%05/03/2025 3:25 PM CDTInhaled Oxygen Concentration--Wonrvb07.1 kg (192 lb)05/03/2025 3:25 PM CDT Triesc210.6 cm (5' 4)05/03/2025 3:25 PM CDTBody Mass Index32.9605/03/2025 3:25 PM CDT Plan of Treatment DateTypeDepartmentCare Team (Latest Contact Info)Lxlkcxwiayj18/23/2025 11:25 AM CSTOffice Visit [facility] [place] [address] [facility] [address] [place] [address] Mariola Huang MD [address] [facility] [address] [place] [address] Health MaintenanceDue DateLast DoneCommentsCOVID-19 vaccine series (2024- season), 05/19/2024, 09/03/2023, Additional history exists BMI (ht and wt on same day) for age 18+, 09/28/2024, 03/16/2024, Additional history existsDepression screening for age 12+05/03/2026 05/03/2025, 03/16/2024, 02/12/2023, Additional history existsMedicare Wellness for age 65+, 03/16/2024, 02/12/2023, Additional history existsTetanus xuciyun28/03/2017, 10/01/2006, 10/01/2006 (Completed outside of [facility])DEXA/DXA scan for age 65+Vujdhcbif45/11/2013, 04/02/2010, 10/06/2006Hepatitis C screening for age 18-07Twzbfzqvx18/11/2015Pneumococcal series for age 50+Zjddxofer32/19/2015, 02/01/2013Zoster (shingles) series for age 50+Dbrzvzany53/09/2019, 01/14/2019, 06/13/2013RSV vaccine for adults or wajevivaePulqfqqps23/09/2024Influenza ZrozuzfEyawsogom23/24/2025, 05/10/2024, 06/02/2023, Additional history existsHepatitis B series for 19+Aged OutNo longer eligible based on patient's age to complete this topic Procedures Procedure NamePriorityDate/TimeAssociated DiagnosisCommentsURINE ALBUMIN TO CREATININE RATIO, MXKVOEBuccpsj57/24/2025 4:48 PM CDT Controlled type 2 diabetes mellitus without complication, without long-term current use of insulin (HC) CBC WITH AUTO UVHPFKEZKBAUTdwwfdj10/24/2025 3:21 PM CDT Medicare annual wellness visit, subsequent HEMOGLOBIN A1C MONITORING (POCT)Gqmoudq6305/03/2025 3:21 PM CDT Controlled type 2 diabetes mellitus without complication, without long-term current use of insulin (HC) VITAMIN D 25 (DEFICIENCY)Bxbzsta7705/03/2025 3:21 PM CDT Vitamin D deficiency COMP METABOLIC QRZZPVackdjl26/24/2025 3:21 PM CDT Hyperlipidemia LDL goal < 100 LIPID PANEL W REFLEX MEASURED EVWVsrhnsu04/24/2025 3:21 PM CDT Hyperlipidemia LDL goal < 100 CIRFfipkjb90/24/2025 3:21 PM CDT Hyperlipidemia LDL goal < 100 CBC WITH AUTO WQJUDMAPZFBCUuiczqu65/24/2025 3:21 PM CDT Medicare annual wellness visit, subsequent ANTI ALRKlvwapv18/11/2015 10:04 AM CDT Need for hepatitis C screening test XR DXA BONE DENSITY 2 SITES NWLIRRxjwcdj61/11/2013 12:00 PM CDT Post-menopausal from Last 3 Months or Most Recently Relevant to Health Maintenance Results * URINE ALBUMIN TO CREATININE RATIO, RANDOM (05/03/2025 4:48 PM CDT)Component ValueRef RangeTest MethodAnalysis TimePerformed AtPathologist SignatureALB RAND URINE<12.0mg/L05/03/2025 11:24 PM [facility]-CENTRAL LABORATORYCREATININE,URINE1.46g/L05/03/2025 11:24 PM [facility]-CENTRAL LABORATORYALBUMIN TO CREATININE RATIO,RAND UR05/03/2025 11:24 PM [facility]-CENTRAL LABORATORYComment:Urine Albumin below measurement range, unable to calculate.Specimen (Source)Anatomical Location / LateralityCollection Method / VolumeCollection TimeReceived Time UrineURINE SPECIMEN / UnknownNon-Blood / Dabppur3305/03/2025 4:48 PM CDT 05/03/2025 4:48 PM CDT Narrative [facility] - 05/03/2025 11:24 PM CDT [...] StatusHarriSuzanne Huang MDURINEFinal ResultPerforming OrganizationAddressCity/State/ZIP CodePhone Number [facility] [address] [place] [address], * (ABNORMAL) CBC WITH AUTO DIFFERENTIAL (05/03/2025 3:21 PM CDT)ComponentValue Ref RangeTest MethodAnalysis TimePerformed AtPathologist SignatureWHITE BLOOD CELL COUNT9.63.8 - 10.8 Thousand/uL05/03/2025 3:42 PM [facility] BLOOD CELL COUNT3.64(L)3.80 - 5.10 Million/uL 05/03/2025 3:42 PM [facility]WARDHEMOGLOBIN11.6(L) 11.7 - 15.5 g/dL05/03/2025 3:42 PM [facility] SFCTCGCDJG30.335.0 - 45.0 %05/03/2025 3:42 PM [facility]WARDMCV97.080.0 - 100.0 fL05/03/2025 3:42 PM [facility] WOODWARDMCH31.927.0 - 33.0 pg05/03/2025 3:42 PM [facility] WOODWARDMCHC32.932.0 - 36.0 g/dL05/03/2025 3:42 PM CDT [facility]Comment: For adults, a slight decrease in the calculated MCHC value (in the range of 30 to 32 g/dL) is most likely not clinically significant; however, it should be interpreted with caution in correlation with other red cell parameters and the patient's clinical condition. RDW13.411.0 - 15.0 %05/03/2025 3:42 PM [facility] [place] PLATELET HIBVC777942 - 400 Thousand/uL05/03/2025 3:42 PM CDSOU[facility] CLINICMPV9.97.5 - 12.5 fL05/03/2025 3:42 PM [facility] POYJAFSSBMXOADRYV67.3%05/03/2025 3:42 PM [facility] JXIXDRBFQKCFQNZGK23.8%05/03/2025 3:42 PM [facility] CLINICMONOCYTES6.0%05/03/2025 3:42 PM [facility] CLINICEOSINOPHILS1.6%05/03/2025 3:42 PM [facility] CLINICBASOPHILS0.3%05/03/2025 3:42 PM CDS[facility] CLINICABSOLUTE AQENCJBCDTC13818114 - 7800 cells/uL05/03/2025 3:42 PM CDS[facility] CLINICABSOLUTE WHMWZLPGIBB2367790 - 3900 cells/05/03/2025 3:42 PM CDTALCLAIBORNE COUNTY [facility] CLINICABSOLUTE GXIUQGXBU163698 - 950 cells/05/03/2025 3:42 PM CDIN[facility] YQYQESOSBJQ19099 - 500 cells/05/03/2025 3:42 PM CDS[facility] CLINICABSOLUTE PJGXGESZJ074 - 200 cells/05/03/2025 3:42 PM CDSOU[facility] CLINICSpecimen (Source)Anatomical Location / LateralityCollection Method / VolumeCollection TimeReceived TimeBlood BLOOD SPECIMEN / UnknownQuest Collect / Kyppuym1105/03/2025 3:21 PM CDT05/03/2025 3:21 PM CDT Narrative Authorizing ProviderResult TypeResult StatusHarriSuzanne Huang MDHEMATOLOGYFinal ResultPerforming OrganizationAddressCity/State/ZIP CodePhone Number [facility] [address] [place] [address], [facility] [address] [place] [address] * LIPID PANEL W REFLEX MEASURED LDL (05/03/2025 3:21 PM CDT)ComponentValueRef RangeTest MethodAnalysis TimePerformed AtPathologist SignatureCHOLESTEROL, KYQVL397<200 mg/dL05/04/2025 4:00 AM CDTQUEST QQIHIKYLQUKXQIRKDMMBRGUP864<150 mg/dL05/04/2025 4:00 AM CDTQUEST DIAGNOSTICSHDL FEUDIZXDIEO02> OR = 50 mg/dL 05/04/2025 4:00 AM CDTQUEST DIAGNOSTICSNON HDL LKWRWEODAVC51<130 mg/dL (calc) 05/04/2025 4:00 AM CDTQUEST DIAGNOSTICSComment: For patients with diabetes plus 1 major ASCVD risk factor, treating to a non-HDL-C goal of <100 mg/dL (LDL-C of <70 mg/dL) is considered a therapeutic option. CHOL/HDLC RATIO2.3<5.0 (calc)05/04/2025 4:00 AM CDT[facility] LDL-SMKUNOPIQAT39qx/dL (calc)05/04/2025 4:00 AM CDTQUEST DIAGNOSTICSComment: Reference range: [...] LDL-C. Nir SS et al. DAVID. 2013;310(19): 7180-3237 (http://education.[employer].Bio[employer]ck/faq/TTL141) Specimen (Source)Anatomical Location / LateralityCollection Method / Volume Collection TimeReceived TimeBloodBLOOD SPECIMEN / UnknownQuest Collect / Unknown 05/03/2025 3:21 PM CDT05/03/2025 3:21 PM CDT Narrative [facility] - 05/04/2025 4:00 AM CDT FASTING:NO FASTING: NO Authorizing ProviderResult TypeResult StatusHarriet L Enubuzor MDCHEMISTRYFinal ResultPerforming OrganizationAddressCity/State/ZIP CodePhone Number [facility] [address] [place] [address], [place] [phone] * VITAMIN D 25 (DEFICIENCY) (05/03/2025 3:21 [...] D, (D2,D3), LC/MS/MS is recommended: order code 70043 (patients >2yrs). See Note 1 Note 1 For additional information, please refer to http://education.[employer].Bio[employer] Teck/faq/JUQ613 (This link is being provided for informational/ educational purposes only.) Specimen (Source)Anatomical Location / LateralityCollection Method / Volume Collection TimeReceived TimeBloodBLOOD SPECIMEN / UnknownQuest Collect / Unknown 05/03/2025 3:21 PM CDT05/03/2025 3:21 PM CDT Narrative [facility] - 05/04/2025 3:39 AM CDT FASTING:NO FASTING: NO Authorizing ProviderResult TypeResult StatusHarriet L Enubuzor MDSEND OUTSFinal ResultPerforming OrganizationAddressCity/State/ZIP CodePhone Number [facility] [address] [place] [address], [place] [phone] * TSH (05/03/2025 3:21 PM CDT)ComponentValueRef RangeTest MethodAnalysis Time Performed AtPathologist SignatureTSH3.150.40 - 4.50 mIU/L05/04/2025 3:39 AM CDTQUEST DIAGNOSTICSSpecimen (Source)Anatomical Location / Laterality Collection Method / VolumeCollection TimeReceived TimeBloodBLOOD SPECIMEN / UnknownQuest Collect / Icrefjy1905/03/2025 3:21 PM CDT05/03/2025 3:21 PM CDT Narrative [facility] - 05/04/2025 3:39 AM CDT FASTING:NO FASTING: NO Authorizing ProviderResult TypeResult StatusHarriet L Enubuzor MDCHEMISTRYFinal ResultPerforming OrganizationAddressCity/State/ZIP CodePhone Number [facility] [address] [address], [place] [phone] * HEMOGLOBIN A1C MONITORING (POCT) (05/03/2025 3:21 PM CDT)ComponentValueRef RangeTest MethodAnalysis TimePerformed AtPathologist SignaturePOC HEMOGLOBIN A1C5.9<6.0 % OF TOTAL HGB05/03/2025 3:37 PM [facility]: Any point of care results exhibiting inconsistency with the patient's clinical status should be repeated using a different testing method. Specimen (Source)Anatomical Location / LateralityCollection Method / Volume Collection TimeReceived TimeBloodBLOOD SPECIMEN / UnknownQuest Collect / Unknown 05/03/2025 3:21 PM CDT05/03/2025 3:21 PM CDT Narrative Authorizing ProviderResult TypeResult StatusHarriet L Enubuzor MDCHEMISTRYFinal ResultPerforming OrganizationAddressCity/State/ZIP CodePhone Number [facility] [address] [address], [place] [phone] [address] * (ABNORMAL) COMP METABOLIC PANEL (05/03/2025 3:21 PM CDT)ComponentValueRef RangeTest MethodAnalysis TimePerformed AtPathologist LlejgxuqhOZLCBA166674 - 146 mmol/L05/04/2025 4:00 AM CDTQUEST DIAGNOSTICSPOTASSIUM4.03.5 - 5.3 mmol/L 05/04/2025 4:00 AM CDTQUEST SLJOWNPSLXJFYVHFERA46960 - 110 mmol/L05/04/2025 4:00 AM CDTQUEST DIAGNOSTICSCARBON ZYGDWWY7040 - 32 mmol/L05/04/2025 4:00 AM CDTQUEST KZCHSQSAILWDQSYIEM0370 - 139 mg/dL05/04/2025 4:00 AM CDTQUEST DIAGNOSTICSComment: ? Non-fasting reference interval CALCIUM8.68.6 - 10.4 mg/dL05/04/2025 4:00 AM CDTQUEST DIAGNOSTICSCREATININE0.99 0.60 - 1.00 mg/dL05/04/2025 4:00 AM CDTQUEST DIAGNOSTICSBUN/CREATININE RATIOSEE NOTE: (calc)05/04/2025 4:00 AM CDTQUEST DIAGNOSTICSComment: ?? Not Reported: BUN and Creatinine are within ?? reference range. ? EGFR59(L)> OR = 60 mL/min/1.58a62805/04/2025 4:00 AM CDTQUEST DIAGNOSTICSALBUMIN 3.93.6 - 5.1 g/dL05/04/2025 4:00 AM CDTQUEST DIAGNOSTICSPROTEIN, TOTAL6.76.1 - 8.1 g/dL05/04/2025 4:00 AM CDTQUEST DIAGNOSTICSBILIRUBIN, TOTAL0.40.2 - 1.2 mg/dL05/04/2025 4:00 AM CDTQUEST DIAGNOSTICSALKALINE XYOOEXXQEPJ2682 - 153 U/L 05/04/2025 4:00 AM CDTQUEST THDBBNQQPSTFWZ448 - 29 U/L05/04/2025 4:00 AM CDT [facility] XXITPVHEWTYRIM4254 - 35 U/L05/04/2025 4:00 AM CDTQUEST DIAGNOSTICSUREA NITROGEN (BUN)197 - 25 mg/dL05/04/2025 4:00 AM CDTQUEST DIAGNOSTICSGLOBULIN2.8 1.9 - 3.7 g/dL (calc)05/04/2025 4:00 AM CDTQUEST DIAGNOSTICSALBUMIN/GLOBULIN RATIO1.41.0 - 2.5 (calc)05/04/2025 4:00 AM CDTQUEST DIAGNOSTICSSpecimen (Source) Anatomical Location / LateralityCollection Method / VolumeCollection Time Received TimeBloodBLOOD SPECIMEN / UnknownQuest Collect / Pylonqg4805/03/2025 3:21 PM CDT05/03/2025 3:21 PM CDT Narrative [facility] - 05/04/2025 4:00 AM CDT FASTING:NO FASTING: NO Authorizing ProviderResult TypeResult StatusHarriet L Enubuzor MDCHEMISTRYFinal ResultPerforming OrganizationAddressCity/State/ZIP CodePhone Number [facility] [address] [address], * ANTI HCV [[id number]] (03/20/2015 10:04 AM CDT)ComponentValueRef RangeTest Method Analysis TimePerformed AtPathologist SignatureHEPATITIS C ANTIBODYNon-Reactive Non-Reactive 03/20/2015 2:34 PM CDTALADVENTHEALTH HENDERSONVILLECENTRAL LABORATORYSpecimen (Source)Anatomical Location / LateralityCollection Method / VolumeCollection TimeReceived TimeBlood specimen (specimen)BLOOD SPECIMEN / UnknownVenipuncture / Ewiffid2003/20/2015 10:04 AM CDT03/20/2015 10:04 AM CDT Narrative [facility] - 03/20/2015 2:34 PM CDT Antibodies to HCV not detected; does not exclude the possibility of exposure to HCV. Authorizing ProviderResult TypeResult StatusHarriet L Enubuzor MDSEND OUTSFinal ResultPerforming OrganizationAddressCity/State/ZIP CodePhone Number [facility] [address] [place] [address], [place] * XR DXA BONE DENSITY 2 SITES (02/17/2013 12:00 PM CDT)Anatomical Region LateralityModalitySpine, HIPS, HIPL, HIPROther Narrative 02/18/2013 8:36 AM CDT Procedure Note Scanner - 02/17/2013 12:00 PM CDT Authorizing ProviderResult TypeResult StatusHarriet L Enubuzor MDDEXAFinal Result from Last 3 Months or Most Recently Relevant to Health Maintenance Insurance * Guarantor: Cailin Trejo LAccount TypeRelation to PatientDate of BirthPhone Billing AddressPersonal/QbgqtnLvym1950 [id number] [place] [id number] Advance Directives TypeDate RecordedPatient RepresentativeExplanationHealthcare Directive02/05/2023 02/05/2023 * Full Code (Latest Code Status on File) Date ActivatedDate InactivatedComments04/23/2016 11:36 AM04/23/2016 6:16 PM * Full Code Date ActivatedDate InactivatedComments04/23/2016 7:25 AM04/23/2016 11:36 AM Care Teams Team MemberRelationshipSpecialtyStart DateEnd Date Mariola Huang MD [address] [place] [address] PCP - GeneralFamily Practice08/21/10 Kassandra Harrington MD [address] [place] [address] Rheumatology12/12/14 Yonis Us PA [address] [place] [address] Physician Assistant12/12/14
--- NOTE | 2025-07-22 12:34 | CRLHL7_ITS ---
For Patients: As a result of the Cures Act, medical imaging exams and procedure reports are released immediately into your electronic medical record. You may view this report before your referring provider. If you have questions, please contact your health care provider. INDICATION: Pain and swelling none otherwise specified. COMPARISON: 07/21/2025 TECHNIQUE: Three views of the right knee. FINDINGS: New right joint effusion of undetermined etiology/clinical significance. Correlate with the patient`s clinical history and status. 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 No fracture or dislocation. IMPRESSION: New right joint effusion of undetermined etiology/clinical significance. Correlate with the patient`s clinical history and status. Dictated by David Phan MD @ 07/22/2025 2:08:43 PM (Electronically Signed)
--- NOTE | 2025-07-22 12:38 | ED.GENADULT ---
HPI - General Adult General Chief complaint: Extremity Pain/Injury, Lower Stated complaint: knee pain Time Seen by Provider: 07/22/25 12:20 Source: patient Mode of arrival: EMS Limitations: no limitations History of Present Illness HPI narrative: 75-year-old female, arrives via EMS, with the right-sided knee pain that is been present for 2 days. Patient was seen yesterday where an arthrocentesis was attempted and x-ray was done. There was nothing that was obtained from the arthrocentesis. X-ray was unremarkable and noted knee effusion was noted. Patient states that symptoms have worsened in the last 24 hours. She states that she had a hard time sleeping last night despite taking pain medications. This morning she got up and she was unable to bear any weight. She denies any systemic symptoms. States that now the knee is markedly more swollen than it was yesterday. Patient does have a history of rheumatoid arthritis but denies ever having this much pain in any joint previously. Of note, she is on methotrexate. Related Data Home Medications ?Medication ?Instructions ?Recorded ?Confirmed dicyclomine 20 mg tablet 20 mg PO QID 05/10/24 07/22/25 folic acid 1 mg tablet 1 mg PO DAILY 05/10/24 07/22/25 hydrochlorothiazide 12.5 mg tablet 12.5 mg PO DAILY 05/10/24 07/22/25 losartan 50 mg tablet 50 mg PO DAILY 05/10/24 07/22/25 lovastatin 20 mg tablet 20 mg PO QPM 05/10/24 07/22/25 metformin 500 mg tablet,extended 1,000 mg PO DAILY 05/10/24 07/22/25 release 24 hr methotrexate sodium 2.5 mg tablet 12.5 mg PO .thursday05/10/24 07/22/25 sertraline 25 mg tablet 25 mg PO QAM 05/10/24 07/22/25 triamcinolone acetonide 0.1 % 1 applic topical 3XD 05/10/24 07/22/25 topical cream Calcium 1,500 mg PO DAILY 09/13/24 07/22/25 clobetasol 0.05 % topical cream 1 applic topical BID 09/13/24 07/22/25 clobetasol 0.05 % topical ointment 1 applic topical BID 09/13/24 07/21/25 ketoconazole 2 % shampoo 1 applic topical 2XW 09/13/24 07/21/25 omeprazole 20 mg tablet,delayed 20 mg PO QDAY 09/13/24 07/22/25 release Allergies Allergy/AdvReac Type Severity Reaction Status Date / Time lisinopril AdvReac Intermediate Cough Verified 07/21/25 13:01 Review of Systems Status of ROS: Reports: 6 or more systems reviewed and unremarkable except as noted in History and below [facility] Medical History Tremor ?R25.1 - Tremor, unspecified (ICD-10) Bilateral shoulder pain ?M25.511 - Pain in right shoulder (ICD-10) ?M25.512 - Pain in left shoulder (ICD-10) Numbness ?R20.0 - Anesthesia of skin (ICD-10) Edema ?R60.9 - Edema, unspecified (ICD-10) Memory problem ?R41.3 - Other amnesia (ICD-10) Lichen sclerosus ?L90.0 - Lichen sclerosus et atrophicus (ICD-10) Overactive bladder ?N32.81 - Overactive bladder (ICD-10) Persistent cough ?R05.3 - Chronic cough (ICD-10) Lung nodules ?R91.8 - Other nonspecific abnormal finding of lung field (ICD-10) Depression, major, single episode, mild ?F32.0 - Major depressive disorder, single episode, mild (ICD-10) Depression with anxiety ?F41.8 - Other specified anxiety disorders (ICD-10) Peripheral sensory neuropathy ?G60.8 - Other hereditary and idiopathic neuropathies (ICD-10) Carpal tunnel syndrome ?G56.00 - Carpal tunnel syndrome, unspecified upper limb (ICD-10) Arthritis of both hips ?M16.0 - Bilateral primary osteoarthritis of hip (ICD-10) Pain of both hip joints ?M25.551 - Pain in right hip (ICD-10) ?M25.552 - Pain in left hip (ICD-10) Upper back pain ?M54.9 - Dorsalgia, unspecified (ICD-10) Sacro-iliac pain ?M53.3 - Sacrococcygeal disorders, not elsewhere classified (ICD-10) Hammertoe ?M20.40 - Other hammer toe(s) (acquired), unspecified foot (ICD-10) Arthritis ?M19.90 - Unspecified osteoarthritis, unspecified site (ICD-10) Osteopenia ?M85.80 - Other specified disorders of bone density and structure, unspecified site (ICD-10) Rheumatoid arthritis ?M06.9 - Rheumatoid arthritis, unspecified (ICD-10) Irregular bowel habits ?R19.8 - Other specified symptoms and signs involving the digestive system and abdomen (ICD-10) Diverticular disease of large intestine ?K57.30 - Diverticulosis of large intestine without perforation or abscess without bleeding (ICD-10) History of colonic polyps ?Z86.0100 - Personal history of colon polyps, unspecified (ICD-10) Chronic diarrhea ?K52.9 - Noninfective gastroenteritis and colitis, unspecified (ICD-10) Fatty liver ?K76.0 - Fatty (change of) liver, not elsewhere classified (ICD-10) Irritable bowel syndrome with diarrhea ?K58.0 - Irritable bowel syndrome with diarrhea (ICD-10) GERD (gastroesophageal reflux disease) ?K21.9 - Gastro-esophageal reflux disease without esophagitis (ICD-10) Nasal congestion ?R09.81 - Nasal congestion (ICD-10) Allergic rhinitis ?J30.9 - Allergic rhinitis, unspecified (ICD-10) Diabetes type 2, controlled ?E11.9 - Type 2 diabetes mellitus without complications (ICD-10) Hyperlipidemia LDL goal <100 ?E78.5 - Hyperlipidemia, unspecified (ICD-10) Chronic eczema ?L30.9 - Dermatitis, unspecified (ICD-10) Rash ?R21 - Rash and other nonspecific skin eruption (ICD-10) Hypertensive disease ?I10 - Essential (primary) hypertension (ICD-10) Surgical History History of endometrial biopsy ?Z92.89 - Personal history of other medical treatment (ICD-10) H/O flexible sigmoidoscopy ?Z98.890 - Other specified postprocedural states (ICD-10) History of removal of ovarian cyst ?Z98.890 - Other specified postprocedural states (ICD-10) ?Z87.42 - Personal history of other diseases of the female genital tract (ICD-10) H/O dilation and curettage ?Z98.890 - Other specified postprocedural states (ICD-10) History of carpal tunnel release ?Z98.890 - Other specified postprocedural states (ICD-10) H/O: hysterectomy ?Z90.710 - Acquired absence of both cervix and uterus (ICD-10) S/P right rotator cuff repair ?Z98.890 - Other specified postprocedural states (ICD-10) Social History Smoking Status: Never smoker Do you use any of these nicotine containing products: None Second hand tobacco smoke exposure: No How often do you have a drink containing alcohol: monthly or less How many standard drinks containing alcohol do you have on a typical day: 1 or 2 AUDIT-C Alcohol total score: 1 Non-prescribed substance use: denies use service: No Exam Narrative: Exam Narrative: Overweight, well-developed patient, clearly uncomfortable parents Alert and oriented. Answers questions appropriately. Mood and affect are appropriate. Thoughts are goal oriented and rational. No tangential or magical thinking noted. Patient speaks in full sentences without needing to catch her breath. HEENT: Normocephalic atraumatic. Pupils are equally round reactive to light. Extraocular muscles are intact. Conjunctivae are moist without any icterus noted. Moist mucous membranes. Extremities: Right knee is visibly swollen. Patient has tenderness to gentle palpation of the patella both distal and proximal. There is no erythema, there is warmth. No pain posteriorly of the knee. Const: Vital Signs, click to edit/add: Vital Signs - 24 hr 07/22/25 12:16 07/22/25 12:32 07/22/25 13:43 Temperature 98.1 F Pulse Rate 75 71 Pulse Rate [Pulse Oximeter] 74 Respiratory Rate 20 16 14 Blood Pressure 152/72 H 98/63 Blood Pressure [Ri ght Upper Arm] 168/71 H Pulse Oximetry 96 97 96 Oxygen Delivery Me thod Room Air 07/22/25 14:01 07/22/25 14:32 07/22/25 15:30 Temperature Pulse Rate 74 74 82 Pulse Rate [Pulse Oximeter] Respiratory Rate 18 16 Blood Pressure 164/71 H 164/73 H Blood Pressure [Ri ght Upper Arm] Pulse Oximetry 96 97 95 Oxygen Delivery Me thod 07/22/25 16:00 07/22/25 16:30 Temperature Pulse Rate 77 77 Pulse Rate [Pulse Oximeter] Respiratory Rate Blood Pressure Blood Pressure [Ri ght Upper Arm] Pulse Oximetry 97 96 Oxygen Delivery Me thod Course Course ED Course: Patient received fentanyl in the ambulance. We did repeat her knee x-ray to see if there was a new effusion or new acute change from yesterday. X-ray does indeed show a new effusion. CBC shows an elevated white count of 15.7. Hemoglobin 11.2. A 7.4% neutrophils. Normal chemistries. Glucose 169. Elevated CRP at 6.4. I did consult with orthopedics. Maria Dolores Brennan was able to see the patient and aspirated a large amount of fluid from that knee that was cloudy. White blood cell count was elevated at 58,117 with greater than 90 poly nuclear wbc's. Because of this it was decided to take the patient to the OR for a washout. Preop EKG, read by me, shows normal sinus rhythm with a pulse of 75. First degree AV block. Vital Signs Vital signs: Initial Vital Signs Temperature 98.1 F 07/22/25 12:16 Temperature Source Temporal Artery Scan 07/22/25 12:16 Pulse Rate 74 07/22/25 12:16 Pulse Rhythm Regular 07/22/25 12:16 Respiratory Rate 20 07/22/25 12:16 Blood Pressure 168/71 H 07/22/25 12:16 Blood Pressure Mean 103 07/22/25 12:16 Blood Pressure Position Supine 07/22/25 12:16 Pulse Oximetry 96 07/22/25 12:16 Oxygen Delivery Method Room Air 07/22/25 12:16 Vital Signs Temperature 98.1 F 07/22/25 12:16 Pulse Rate 74 07/22/25 12:16 Respiratory Rate 20 07/22/25 12:16 Blood Pressure 168/71 H 07/22/25 12:16 Pulse Oximetry 96 07/22/25 12:16 Oxygen Delivery Method Room Air 07/22/25 12:16 Temperature 98.1 F 07/22/25 12:16 Pulse Rate 77 07/22/25 16:30 Respiratory Rate 16 07/22/25 14:32 Blood Pressure 164/73 H 07/22/25 14:32 Pulse Oximetry 96 07/22/25 16:30 Oxygen Delivery Method Room Air 07/22/25 12:16 Medications Administered Medications: Discontinued Medications Generic Name Dose Route Start Last Admin Trade Name Charity PRN Reason Stop Dose Admin Hydromorphone HCl 0.5 mg 07/22/25 13:46 07/22/25 14:06 Hydromorphone 0.5 Mg/0.5 Ml Inj IVP 07/22/25 13:47 0.5 mg ONCE ONE Administration Medical Decision Making MDM Narrative Medical decision making narrative: 75-year-old female with septic knee. Patient will proceed to the OR with the orthopedic team. Lab Data Labs: Lab Results 07/22/25 07/22/25 Range/Units 13:10 15:50 WBC 15.70 H (4.50-11.00) K/uL RBC 3.56 L (4.00-5.20) m/uL Hgb 11.2 L (12.0-16.0) gm/dL Hct 34.0 (33.0-51.0) % MCV 96 (80-100) fL MCH 32 (26-34) pg MCHC 33 (32-36) gm/dL RDW Coeff of Jacob 13.2 (11.5-15.5) % Plt Count 263 (140-440) K/uL Neut % (Auto) 87.4 H (42.0-72.0) % Lymph % (Auto) 3.1 L (20-44) % [place] % (Auto) 9.0 (0.0-11.0) % Eos % (Auto) 0.0 (0.0-7.0) % Baso % (Auto) 0.1 (0.0-3.0) % Neut # (Auto) 13.70 H (1.7-7.0) K/uL Lymph # (Auto) 0.50 L (0.90-2.90) K/uL [place] # (Auto) 1.40 H (0.00-0.90) K/UL Eos # (Auto) 0.00 (0.00-0.50) K/uL Baso # (Auto) 0.00 (0.00-0.30) K/uL Abs Immat Gran (auto) 0.10 (0.00-0.30) K/uL Imm/Tot Granulo (auto) 0.4 % Sodium 136 (135-149) mmol/L Potassium 4.0 (3.6-5.1) mmol/L Chloride 107 (96-114) mmol/L Carbon Dioxide 20 (20-32) mmol/L Anion Gap 9 (7-15) mEq/L BUN 20 (7-30) mg/dL Creatinine 0.7 (0.5-1.5) mg/dL Estimated Creat Clear 40.68 Estimated GFR 89 ml/min Glucose 169 H (60-115) mg/dL Lactate 1.4 (0.5-1.9) mmol/L Calcium 8.8 (8.4-10.6) mg/dL C-Reactive Protein 6.4 H (0.5-1.0) mg/dL Fluid Volume 65 Fluid Color Xanthochromic A Fluid Appearance Cloudy A Fluid WBC 92566 Cells/uL Fluid RBC 2000 Cells/uL Fluid Polynuclear WBCs 94 % Fluid Mononuclear WBCs 6 % ECG Data Attestation: I personally reviewed and interpreted this ECG as follows: Discharge Plan Discharge Clinical Impression: Septic joint Patient Disposition: XFER to OR Condition: Stable Follow Up/Referrals: Provider,Not a Local [Primary Care Provider, Family Practice]
[2025-07-22 13:16] LABS: Lactate* 1.4 mmol/L (0.5-1.9)
[2025-07-22 13:17] LABS: Hematocrit* 34.0 % (33.0-51.0); Hemoglobin* 11.2 gm/dL (12.0-16.0); Immature Granulocytes Pct Auto 0.4 %; Mean Corpuscular HGB Conc 33 gm/dL (32-36); Mean Corpuscular Hemoglobin 32 pg (26-34); Mean Corpuscular Volume 96 fL (80-100); RDW Coefficient of Variation % 13.2 % (11.5-15.5); Red Blood Count* 3.56 m/uL (4.00-5.20); White Blood Count* 15.70 K/uL (4.50-11.00)
[2025-07-22 13:18] LABS: Immature Granulocytes Abs Auto 0.10 K/uL (0.00-0.30); Lymphocytes Absolute Auto 0.50 K/uL (0.90-2.90); Slide Review Reflex No
[2025-07-22 13:40] LABS: Chloride* 107 mmol/L (96-114); Sodium* 136 mmol/L (135-149)
[2025-07-22 13:41] LABS: Potassium* 4.0 mmol/L (3.6-5.1)
[2025-07-22 13:44] LABS: Anion Gap 9 mEq/L (7-15); Blood Urea Nitrogen* 20 mg/dL (7-30); Calcium* 8.8 mg/dL (8.4-10.6); Carbon Dioxide* 20 mmol/L (20-32); Creatinine* 0.7 mg/dL (0.5-1.5); Est. Creatinine Clearance* 40.68; Estimated Glomerular Filt Rate 89 ml/min; Glucose* 169 mg/dL (60-115)
[2025-07-22 17:13] LABS: Mononuclear WBC Body Fluid* 6 %; Polynuclear WBC Body Fluid* 94 %; RBC, Body Fluid* 2000 Cells/uL; WBC, Body Fluid* 58117 Cells/uL
[2025-07-22 17:16] LABS: BF Clarity* Cloudy; BF Total Volume* 65
--- NOTE | 2025-07-22 17:48 | PM.ORCN ---
History of Present Illness HPI Time Seen by Provider: 17:48 Date Seen: 07/22/25 Consult date: 07/22/25 Requesting physician: Lenora Dos Santos Chief complaint: knee pain Narrative: Cailin is a very pleasant 75-year-old young lady, in the emergency room today with right knee pain that began on , 2 days ago. She was in the emergency room yesterday for knee pain as well. X-rays were taken yesterday and today. Today she could not bear weight and she arrived by EMS. The knee is painful to even the slightest touch. Dr. Butler attempted aspiration yesterday. No fluid was found. She had no injury to the knee, no falls. Pain in the knee is global. She denies history of gout or pseudogout or septic joint in the past. She is accompanied by her today. She has a history of rheumatoid arthritis, diabetes, osteoarthritis. Review of Systems Narrative: Patient denies nausea, vomiting, fever, chills, chest pain, shortness of breath. Temperature 99? F yesterday in the ER. Current temperature 98.1? F. PFSH [facility] Medical History Tremor ?R25.1 - Tremor, unspecified (ICD-10) Bilateral shoulder pain ?M25.511 - Pain in right shoulder (ICD-10) ?M25.512 - Pain in left shoulder (ICD-10) Numbness ?R20.0 - Anesthesia of skin (ICD-10) Edema ?R60.9 - Edema, unspecified (ICD-10) Memory problem ?R41.3 - Other amnesia (ICD-10) Lichen sclerosus ?L90.0 - Lichen sclerosus et atrophicus (ICD-10) Overactive bladder ?N32.81 - Overactive bladder (ICD-10) Persistent cough ?R05.3 - Chronic cough (ICD-10) Lung nodules ?R91.8 - Other nonspecific abnormal finding of lung field (ICD-10) Depression, major, single episode, mild ?F32.0 - Major depressive disorder, single episode, mild (ICD-10) Depression with anxiety ?F41.8 - Other specified anxiety disorders (ICD-10) Peripheral sensory neuropathy ?G60.8 - Other hereditary and idiopathic neuropathies (ICD-10) Carpal tunnel syndrome ?G56.00 - Carpal tunnel syndrome, unspecified upper limb (ICD-10) Arthritis of both hips ?M16.0 - Bilateral primary osteoarthritis of hip (ICD-10) Pain of both hip joints ?M25.551 - Pain in right hip (ICD-10) ?M25.552 - Pain in left hip (ICD-10) Upper back pain ?M54.9 - Dorsalgia, unspecified (ICD-10) Sacro-iliac pain ?M53.3 - Sacrococcygeal disorders, not elsewhere classified (ICD-10) Hammertoe ?M20.40 - Other hammer toe(s) (acquired), unspecified foot (ICD-10) Arthritis ?M19.90 - Unspecified osteoarthritis, unspecified site (ICD-10) Osteopenia ?M85.80 - Other specified disorders of bone density and structure, unspecified site (ICD-10) Rheumatoid arthritis ?M06.9 - Rheumatoid arthritis, unspecified (ICD-10) Irregular bowel habits ?R19.8 - Other specified symptoms and signs involving the digestive system and abdomen (ICD-10) Diverticular disease of large intestine ?K57.30 - Diverticulosis of large intestine without perforation or abscess without bleeding (ICD-10) History of colonic polyps ?Z86.0100 - Personal history of colon polyps, unspecified (ICD-10) Chronic diarrhea ?K52.9 - Noninfective gastroenteritis and colitis, unspecified (ICD-10) Fatty liver ?K76.0 - Fatty (change of) liver, not elsewhere classified (ICD-10) Irritable bowel syndrome with diarrhea ?K58.0 - Irritable bowel syndrome with diarrhea (ICD-10) GERD (gastroesophageal reflux disease) ?K21.9 - Gastro-esophageal reflux disease without esophagitis (ICD-10) Nasal congestion ?R09.81 - Nasal congestion (ICD-10) Allergic rhinitis ?J30.9 - Allergic rhinitis, unspecified (ICD-10) Diabetes type 2, controlled ?E11.9 - Type 2 diabetes mellitus without complications (ICD-10) Hyperlipidemia LDL goal <100 ?E78.5 - Hyperlipidemia, unspecified (ICD-10) Chronic eczema ?L30.9 - Dermatitis, unspecified (ICD-10) Rash ?R21 - Rash and other nonspecific skin eruption (ICD-10) Hypertensive disease ?I10 - Essential (primary) hypertension (ICD-10) Surgical History History of endometrial biopsy ?Z92.89 - Personal history of other medical treatment (ICD-10) H/O flexible sigmoidoscopy ?Z98.890 - Other specified postprocedural states (ICD-10) History of removal of ovarian cyst ?Z98.890 - Other specified postprocedural states (ICD-10) ?Z87.42 - Personal history of other diseases of the female genital tract (ICD-10) H/O dilation and curettage ?Z98.890 - Other specified postprocedural states (ICD-10) History of carpal tunnel release ?Z98.890 - Other specified postprocedural states (ICD-10) H/O: hysterectomy ?Z90.710 - Acquired absence of both cervix and uterus (ICD-10) S/P right rotator cuff repair ?Z98.890 - Other specified postprocedural states (ICD-10) Social History Smoking Status: Never smoker Do you use any of these nicotine containing products: None Second hand tobacco smoke exposure: No How often do you have a drink containing alcohol: monthly or less How many standard drinks containing alcohol do you have on a typical day: 1 or 2 AUDIT-C Alcohol total score: 1 Non-prescribed substance use: denies use service: No Meds Home Medications and Allergies Home Medications ?Medication ?Instructions ?Recorded ?Confirmed ?Type dicyclomine 20 mg tablet 20 mg PO QID 05/10/24 07/22/25 History folic acid 1 mg tablet 1 mg PO DAILY 05/10/24 07/22/25 History hydrochlorothiazide 12.5 mg tablet 12.5 mg PO DAILY 05/10/24 07/22/25 History losartan 50 mg tablet 50 mg PO DAILY 05/10/24 07/22/25 History lovastatin 20 mg tablet 20 mg PO QPM 05/10/24 07/22/25 History metformin 500 mg tablet,extended 1,000 mg PO DAILY 05/10/24 07/22/25 History release 24 hr methotrexate sodium 2.5 mg tablet 12.5 mg PO .thursday05/10/2425 History sertraline 25 mg tablet 25 mg PO QAM 05/10/24 07/22/25 History triamcinolone acetonide 0.1 % 1 applic topical 3XD 05/10/24 07/22/25 History topical cream Calcium 1,500 mg PO DAILY 09/13/24 07/22/25 History clobetasol 0.05 % topical cream 1 applic topical BID 09/13/24 07/22/25 History clobetasol 0.05 % topical ointment 1 applic topical BID 09/13/24 07/21/25 History ketoconazole 2 % shampoo 1 applic topical 2XW 09/13/24 07/21/25 History omeprazole 20 mg tablet,delayed 20 mg PO QDAY 09/13/24 07/22/25 History release Allergies Allergy/AdvReac Type Severity Reaction Status Date / Time lisinopril AdvReac Intermediate Cough Verified 07/21/25 13:01 Ortho Exam Narrative Exam Narrative: Alert and oriented x3. Patient is in no acute distress. Converses without labored breathing. Hearing is grossly intact. Not able to bear weight on the right lower extremity. Examination of the right knee shows tense effusion. Tenderness to even light palpation about the knee. Unable to range the knee. The knee is warm. No erythema. No ecchymosis. Manipulation of the patella causes pain. Global tenderness. CMS intact right lower extremity. Calf is soft and nontender. Const Vital Signs, click to edit/add: Vital Signs - 24 hr 07/22/25 12:16 07/22/25 12:32 07/22/25 13:43 Temperature 98.1 F Pulse Rate 75 71 Pulse Rate [Pulse Oximeter] 74 Respiratory Rate 20 16 14 Blood Pressure 152/72 H 98/63 Blood Pressure [Right Upper Arm] 168/71 H Pulse Oximetry 96 97 96 Oxygen Delivery Method Room Air 07/22/25 14:01 07/22/25 14:32 07/22/25 15:30 Temperature Pulse Rate 74 74 82 Pulse Rate [Pulse Oximeter] Respiratory Rate 18 16 Blood Pressure 164/71 H 164/73 H Blood Pressure [Right Upper Arm] Pulse Oximetry 96 97 95 Oxygen Delivery Method 07/22/25 16:00 07/22/25 16:30 Temperature Pulse Rate 77 77 Pulse Rate [Pulse Oximeter] Respiratory Rate Blood Pressure Blood Pressure [Right Upper Arm] Pulse Oximetry 97 96 Oxygen Delivery Method Results Labs Labs: Laboratory Results - last 48 hr 07/22/25 07/22/25 13:10 15:50 WBC 15.70 H RBC 3.56 L Hgb 11.2 L Hct 34.0 MCV 96 MCH 32 MCHC 33 RDW Coeff of Jacob 13.2 Plt Count 263 Neut % (Auto) 87.4 H Lymph % (Auto) 3.1 L [place] % (Auto) 9.0 Eos % (Auto) 0.0 Baso % (Auto) 0.1 Neut # (Auto) 13.70 H Lymph # (Auto) 0.50 L [place] # (Auto) 1.40 H Eos # (Auto) 0.00 Baso # (Auto) 0.00 Abs Immat Gran (auto) 0.10 Imm/Tot Granulo (auto) 0.4 Sodium 136 Potassium 4.0 Chloride 107 Carbon Dioxide 20 Anion Gap 9 BUN 20 Creatinine 0.7 Estimated Creat Clear 40.68 Estimated GFR 89 Glucose 169 H Lactate 1.4 Calcium 8.8 C-Reactive Protein 6.4 H Fluid Volume 65 Fluid Color Xanthochromic A Fluid Appearance Cloudy A Fluid WBC 69897 Fluid RBC 2000 Fluid Polynuclear WBCs 94 Fluid Mononuclear WBCs 6 Diagnostic results Additional Comments: Three views of the right knee. 07/22/2025 FINDINGS: New right joint effusion of undetermined etiology/clinical significance. Correlate with the patient`s clinical history and status. 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 No fracture or dislocation. IMPRESSION: New right joint effusion of undetermined etiology/clinical significance. Correlate with the patient`s clinical history and status. X-rays taken 07/21/2025, right knee two views Indication: Pain, no trauma Technique: Two views right knee Comparison: Right knee 03/15/2024 Findings/Impression: Bones: No evidence of fracture. Joint spaces: Right knee osteoarthritis with marginal osteophytes. Mild chondrocalcinosis. No knee effusion. White blood cell count 15.7, CRP 6.4 Joint fluid analysis/cell count white blood cell count fluid 58,117, PMN 94, crystals are pending Assessment and Plan Assessment and plan (1) Chondrocalcinosis of right knee: Status: Acute (2) Osteoarthritis of right knee: Problem comment: Moderate Status: Acute (3) Effusion, right knee: Status: Acute Plan Cailin has an acutely painful knee. With verbal consent, the right knee is aspirated. Procedures listed below. Dr. Cramer has seen her as well. He has also reviewed x-rays and lab findings. Cultures are pending. Crystals are pending. White blood cell count 58,117, PMNs 94 She has chondrocalcinosis on x-ray which could be from pseudogout. We will take her to the operating room today to wash out her right knee. She has been NPO. Risks and benefits are discussed. Procedure: A detailed conversation was had regarding the description, purpose and nature of right knee aspiration. Risks, benefits, possible complications, and non surgical alternatives were discussed with the patient during this conversation. The patient was given the opportunity to ask questions and received answers to their satisfaction. The patient indicated that they understood the purpose and nature of right knee aspiration and its risks, benefits, possible complications, and nonsurgical alternatives. The patient wants to undergo procedure given the information provided. Verbal, and written consent was obtained from the patient prior to the procedure. After the injection areas was sterilely prepped with ChloraPrep, 3 mL of 1% lidocaine with epinephrine is injected under the skin and in subcutaneous tissue. 75 mL of cloudy yellow joint fluid is aspirated. The patient tolerated the procedure well. Band-Aid was placed.
--- NOTE | 2025-07-22 19:33 | P.ORPRC_ITS ---
Procedure Note Date of procedure: 07/22/25 Procedure: PREOPERATIVE DIAGNOSIS: 1. Right knee septic arthritis 2. Rheumatoid arthritis 3. Right knee chondrocalcinosis POSTOPERATIVE DIAGNOSIS: 1. Right knee septic arthritis 2. Rheumatoid arthritis 3. Right knee chondrocalcinosis 4. Right knee medial meniscus tear 5. Right knee synovitis PROCEDURE: 1. Right knee arthroscopic lavage for septic arthritis 2. Right knee arthroscopic extensive debridement SURGEON: Alfonso Cramer M.D. ASSET AVAILABILITY LEADER: Aminta Brennan PA-C. Of note, an behavioral health assistant was critical for this case to aid in patient positioning, knee manipulation, instrument exchange, and closure. ANESTHESIA: [Spinal] EBL: 5 mL TOURNIQUET: 25 minutes at 250 torr COMPLICATIONS: [None evident] INDICATIONS: The patient is a pleasant 75-year-old female who has experienced right knee pain progressively worsening over the last 2-3 days. She presented to the emergency room yesterday where x-rays did not show any effusion or any other specific acute pathology. She return to the emergency room today with a large effusion about the same right knee which again was seen on the radiographs. Orthopedics was consulted. An aspiration was performed in emergency room. Cell count returned with the following: WBC 58,000+ PMN 94% While we acknowledge that rheumatoid arthritis and or chondrocalcinosis can cause right knee pain with effusion, given the acute change and progressive development of pain and an effusion in the last 24-48 hours, there is a high index of suspicion for septic arthritis, and therefore surgery is indicated for a right knee arthroscopic lavage. FINDINGS: Generalized synovitis within the knee. Grade 4 chondral loss throughout the entire medial femoral condyle and majority of the patella. Grade 2 chondromalacia lateral compartment. Chondrocalcinosis in both medial and lateral menisci noted. Partial tearing of the medial meniscus. Crystal deposits within the ACL and PCL tissue as well. These structures were intact but not robust. DESCRIPTION OF PROCEDURE: After a thorough discussion of risks, benefits, and alternatives, the patient was brought to the operating room and placed upon the operating table. Induction of anesthesia was undertaken as previously noted. [2g iv Ancef] was administered within 1 hr of incision. It was initially held so that cultures could be obtained. It was acknowledge that cultures obtained in the emergency room were accurate cultures and therefore Ancef was administered during the procedure. Appropriate time-out was performed identifying proper patient, site, and procedure. The right lower extremity was prepped and draped in the appropriate sterile fashion using ChloraPrep. The limb was exsanguinated and tourniquet inflated. Anterolateral and anteromedial portals were established with an 11 blade. A large effusion was encountered that was serosanguinous with lumps of debride and some minor clots encountered. Thereafter the diagnostic arthroscopy was performed. This identified the findings as noted above. Following the diagnostic arthroscopy, an arthroscopic lavage was performed irrigating 6 L of normal saline through the knee. An Excalibur shaver was utilized to complete and extensive debridement of the knee synovial tissue in all 3 compartments as well as the retropatellar fat pad, and medial meniscus and debride some of the tissue on the superficial surface of the ACL and PCL (specifically crystals). At this stage, the shaver was reinserted into the suprapatellar pouch and all remaining debris was evacuated. Instruments were removed, excess fluid was drained, and closure performed with 4-0 Monocryl with Steri-Strips. Dressings were applied, the tourniquet deflated, and the patient was awoken from anesthesia and transferred to the PACU in stable condition. PLAN: 1. Weightbear as tolerated operative extremity. Walker ambulation assistance PRN. 2. Ice, acetominophen and/or ibuprofen, and [Oxycodone] for pain as needed. 3. Knee range of motion and quad sets/straight leg raise regularly 4. Anticipate admission to the hospital overnight for 2 nights. Await cultures. 5. Physical therapy consult for evaluation and treatment and ambulation assistance and Education. 6. Empiric IV antibiotics (cefazolin at this time) until cultures and crystals return
--- NOTE | 2025-07-22 19:52 | P.ANES_ITS ---
Anesthesia Charges Start Date/Time Anesthesia Start Date: 07/22/25 Anesthesia Start Time: 18:30 Stop Date/Time Anesthesia Stop Date: 07/22/25 Anesthesia Stop Time: 19:50 Summary Emergency: STRINGED INSTRUMENT TUNER Extremes of Age - Over 70 or under 1: STRINGED INSTRUMENT TUNER Coding CPT Codes CPT Codes: ANESTH KNEE JOINT SURGERY - 13530 ([id number]) P3 - PATIENT W/SEVERE SYS DISEASE, QZ - STRINGED INSTRUMENT TUNER SVC W/O COURT ORDERLY BY Additional Codes: Summary - Emergency: STRINGED INSTRUMENT TUNER ([id number]) Summary - Extremes of Age - Over 70 or under 1: STRINGED INSTRUMENT TUNER ([id number])
--- NOTE | 2025-07-22 19:52 | W.ANESCHARGE ---
Anesthesia Charges Start Date/Time Anesthesia Start Date: 07/22/25 Anesthesia Start Time: 18:30 Stop Date/Time Anesthesia Stop Date: 07/22/25 Anesthesia Stop Time: 19:50 Summary Emergency: WOOD CARVING MACHINE OPERATOR Extremes of Age - Over 70 or under 1: WOOD CARVING MACHINE OPERATOR Coding CPT Codes CPT Codes: ANESTH KNEE JOINT SURGERY - 65138 ([id number]) P3 - PATIENT W/SEVERE SYS DISEASE, QZ - WOOD CARVING MACHINE OPERATOR SVC W/O SELF STORAGE MANAGER BY Additional Codes: Summary - Emergency: WOOD CARVING MACHINE OPERATOR ([id number]) Summary - Extremes of Age - Over 70 or under 1: WOOD CARVING MACHINE OPERATOR ([id number])
[2025-07-22] MEDS: SENNOSIDES 1 TAB TABLET 2 TAB PO (21:49)
[2025-07-23] VITALS (9 sets, daily range): BP systolic 109–137; BP diastolic 50–99; PULSE 62–71; RESP 16–18; TEMP 36.4–36.8; O2SAT 93–96
[2025-07-23] MEDS: CEFAZOLIN 2 GM in 0.9 % SODIUM CHLORIDE Mini-bag 100 ML IVPB (01:04)
[2025-07-23] MEDS: ACETAMINOPHEN 325 MG TABLET 650 MG PO ×2 (03:42→16:32)
--- NOTE | 2025-07-23 06:49 | PC.NURSE ---
Shift note ([id number]): Patient arrived from surgery?at?2022. was waiting for patient in room. Rated right knee pain 0.5/10 upon arrival. O2 sats dropped to 86% while sleeping after arriving. O2 applied at 0.5-1LPM via NC to keep sats above 90%. O2 sats later improved to 94% on room air. Left knee wrapped with winter wrap. No drainage seen on wraps. Rated pain in left knee 0-2/10 at rest and?7/10 with movement. Active ice applied. Given PRN Tylenol?and?PRN Oxycodone. Pt is weight bearing as tolerated. Pt pivot transferred to bedside commode with rolling walker and assist of one-two. Urine concentrated with strong odor. SCDs to bilateral feet. ??
[2025-07-23 08:00] LABS: Hematocrit* 34.0 % (33.0-51.0); Hemoglobin* 11.0 gm/dL (12.0-16.0); Immature Granulocytes Pct Auto 0.5 %; Mean Corpuscular HGB Conc 32 gm/dL (32-36); Mean Corpuscular Hemoglobin 31 pg (26-34); Mean Corpuscular Volume 97 fL (80-100); RDW Coefficient of Variation % 13.3 % (11.5-15.5); Red Blood Count* 3.50 m/uL (4.00-5.20); White Blood Count* 16.00 K/uL (4.50-11.00)
[2025-07-23 08:24] LABS: Immature Granulocytes Abs Auto 0.10 K/uL (0.00-0.30); Lymphocytes Absolute Auto 0.60 K/uL (0.90-2.90); Slide Review Reflex No
[2025-07-23] MEDS: VANCOMYCIN 1.75 GM/350 ML 1.75 GM/350 ML PIGGYBACK IVPB (08:54)
[2025-07-23] MEDS: SENNOSIDES 1 TAB TABLET 2 TAB PO ×2 (08:56→20:42)
[2025-07-23] MEDS: FOLIC ACID 1 MG TABLET PO (08:56)
[2025-07-23] MEDS: LOSARTAN POTASSIUM 50 MG TABLET PO (08:56)
[2025-07-23] MEDS: OMEPRAZOLE 20 MG CAPSULE DR PO (08:56)
[2025-07-23] MEDS: SERTRALINE 50 MG TABLET 25 MG PO (08:57)
[2025-07-23] MEDS: DICYCLOMINE HCL 10 MG CAPSULE 20 MG PO ×2 (10:29→20:43)
--- NOTE | 2025-07-23 10:34 | PM.IMCN1 ---
Date of Consult Patient: Hugh Patient Consult date: 07/23/25 Requesting Physician: Orthopedics Primary Care Provider: Not a Local Provider Consult Narrative Narrative: Cailin Trejo is a 75 year old female seen in consultation for management of acute monoarticular arthritis of the right knee. She was admitted yesterday and underwent right knee arthroscopic lavage and debridement with Dr. Cramer. He has requested consultation for management of acute and chronic medical problems. Patient reported being in her usual state of health until 3 days ago. At that time she started having right knee pain which was progressively getting worse. She had no trauma. She did have subjective fever chills but no documented fever. No previous history of acute arthritis but she does have rheumatoid arthritis treated with methotrexate. Two days ago she presented to our emergency department. There was an unsuccessful attempt at arthrocentesis. Radiographs of the knee were unremarkable. She was discharged with pain medication. Her knee pain continued to get worse and she was unable to ambulate so she returned to the Emergency Department yesterday. There was concern about a septic arthritis so she was taken to the OR by Dr. Cramer. Synovial fluid was cloudy with 58,117 white cells, 94% neutrophils and 2000 red cells. Crystal analysis is pending. G stain showed no organisms. She reports her knee pain is better today and she has been able to do partial weight-bearing. She has no other concerns at this time. Review of Systems Narrative: He reports otherwise being healthy. No recent respiratory illness. No chest pain or palpitations. No heart history. She has diarrhea predominant irritable bowel but otherwise no gastrointestinal symptoms or abdominal pain. No urinary symptoms. She reports her rheumatoid arthritis has been well managed recently by her staff forester. [facility] Medical History (Updated 07/23/25 @ 10:49 by Marc Albright MD) Immunosuppression due to drug therapy ?D84.821 - Immunodeficiency due to drugs (ICD-10) Acute arthritis ?M19.90 - Unspecified osteoarthritis, unspecified site (ICD-10) Tremor ?R25.1 - Tremor, unspecified (ICD-10) Bilateral shoulder pain ?M25.511 - Pain in right shoulder (ICD-10) ?M25.512 - Pain in left shoulder (ICD-10) Numbness ?R20.0 - Anesthesia of skin (ICD-10) Edema ?R60.9 - Edema, unspecified (ICD-10) Memory problem ?R41.3 - Other amnesia (ICD-10) Lichen sclerosus ?L90.0 - Lichen sclerosus et atrophicus (ICD-10) Overactive bladder ?N32.81 - Overactive bladder (ICD-10) Persistent cough ?R05.3 - Chronic cough (ICD-10) Lung nodules ?R91.8 - Other nonspecific abnormal finding of lung field (ICD-10) Depression, major, single episode, mild ?F32.0 - Major depressive disorder, single episode, mild (ICD-10) Depression with anxiety ?F41.8 - Other specified anxiety disorders (ICD-10) Peripheral sensory neuropathy ?G60.8 - Other hereditary and idiopathic neuropathies (ICD-10) Carpal tunnel syndrome ?G56.00 - Carpal tunnel syndrome, unspecified upper limb (ICD-10) Arthritis of both hips ?M16.0 - Bilateral primary osteoarthritis of hip (ICD-10) Pain of both hip joints ?M25.551 - Pain in right hip (ICD-10) ?M25.552 - Pain in left hip (ICD-10) Upper back pain ?M54.9 - Dorsalgia, unspecified (ICD-10) Sacro-iliac pain ?M53.3 - Sacrococcygeal disorders, not elsewhere classified (ICD-10) Hammertoe ?M20.40 - Other hammer toe(s) (acquired), unspecified foot (ICD-10) Arthritis ?M19.90 - Unspecified osteoarthritis, unspecified site (ICD-10) Osteopenia ?M85.80 - Other specified disorders of bone density and structure, unspecified site (ICD-10) Rheumatoid arthritis ?M06.9 - Rheumatoid arthritis, unspecified (ICD-10) Irregular bowel habits ?R19.8 - Other specified symptoms and signs involving the digestive system and abdomen (ICD-10) Diverticular disease of large intestine ?K57.30 - Diverticulosis of large intestine without perforation or abscess without bleeding (ICD-10) History of colonic polyps ?Z86.0100 - Personal history of colon polyps, unspecified (ICD-10) Chronic diarrhea ?K52.9 - Noninfective gastroenteritis and colitis, unspecified (ICD-10) Fatty liver ?K76.0 - Fatty (change of) liver, not elsewhere classified (ICD-10) Irritable bowel syndrome with diarrhea ?K58.0 - Irritable bowel syndrome with diarrhea (ICD-10) GERD (gastroesophageal reflux disease) ?K21.9 - Gastro-esophageal reflux disease without esophagitis (ICD-10) Nasal congestion ?R09.81 - Nasal congestion (ICD-10) Allergic rhinitis ?J30.9 - Allergic rhinitis, unspecified (ICD-10) Diabetes type 2, controlled ?E11.9 - Type 2 diabetes mellitus without complications (ICD-10) Hyperlipidemia LDL goal <100 ?E78.5 - Hyperlipidemia, unspecified (ICD-10) Chronic eczema ?L30.9 - Dermatitis, unspecified (ICD-10) Rash ?R21 - Rash and other nonspecific skin eruption (ICD-10) Hypertensive disease ?I10 - Essential (primary) hypertension (ICD-10) Surgical History History of endometrial biopsy ?Z92.89 - Personal history of other medical treatment (ICD-10) H/O flexible sigmoidoscopy ?Z98.890 - Other specified postprocedural states (ICD-10) History of removal of ovarian cyst ?Z98.890 - Other specified postprocedural states (ICD-10) ?Z87.42 - Personal history of other diseases of the female genital tract (ICD-10) H/O dilation and curettage ?Z98.890 - Other specified postprocedural states (ICD-10) History of carpal tunnel release ?Z98.890 - Other specified postprocedural states (ICD-10) H/O: hysterectomy ?Z90.710 - Acquired absence of both cervix and uterus (ICD-10) S/P right rotator cuff repair ?Z98.890 - Other specified postprocedural states (ICD-10) Family History (Updated 07/23/25 @ 10:42 by Marc Albright MD) Mother Arthritis Diabetes High blood pressure Father Stroke Social History (Updated 07/23/25 @ 10:43 by Marc Albright MD) Narrative: She lives in [place] with her . Her is healthcare power of environmental attorney. She sees primary care and Rheumatology in [place]. She does not smoke. She rarely drinks alcohol. Code status is DNR Smoking Status: Never smoker Do you use any of these nicotine containing products: None Second hand tobacco smoke exposure: No How often do you have a drink containing alcohol: monthly or less How many standard drinks containing alcohol do you have on a typical day: 1 or 2 AUDIT-C Alcohol total score: 1 Non-prescribed substance use: denies use service: No Meds Home Medications and Allergies Home Medications ?Medication ?Instructions ?Recorded ?Confirmed ?Type dicyclomine 20 mg tablet 20 mg PO QID 05/10/24 07/22/25 History folic acid 1 mg tablet 1 mg PO DAILY 05/10/24 07/22/25 History hydrochlorothiazide 12.5 mg tablet 12.5 mg PO DAILY 05/10/24 07/22/25 History losartan 50 mg tablet 50 mg PO DAILY 05/10/24 07/22/25 History lovastatin 20 mg tablet 20 mg PO QPM 05/10/24 07/22/25 History metformin 500 mg tablet,extended 1,000 mg PO QPM 05/10/24 07/23/25 History release 24 hr methotrexate sodium 2.5 mg tablet 12.5 mg PO .thursday05/10/24 07/22/25 History sertraline 25 mg tablet 25 mg PO QAM 05/10/24 07/22/25 History triamcinolone acetonide 0.1 % 1 applic topical 3XD 05/10/24 07/22/25 History topical cream Calcium 1,500 mg PO DAILY 09/13/24 07/22/25 History clobetasol 0.05 % topical cream 1 applic topical BID 09/13/24 07/22/25 History clobetasol 0.05 % topical ointment 1 applic topical BID 09/13/24 07/21/25 History ketoconazole 2 % shampoo 1 applic topical 2XW 09/13/24 07/21/25 History omeprazole 20 mg tablet,delayed 20 mg PO QDAY 09/13/24 07/22/25 History release Home Medication Comments: She did not take any of her medications Thursday, the day of admission. She did not take her methotrexate the day of admission Allergies Allergy/AdvReac Type Severity Reaction Status Date / Time lisinopril AdvReac Intermediate Cough Verified 07/21/25 13:01 Exam Narrative: Exam Narrative: She is alert and appears in no distress. She gives her own history. Speech is normal. Eyes normal. Oropharynx normal. Neck is supple without mass or adenopathy. Respirations are clear to auscultation. Cardiovascular: S1, S2, regular rate and rhythm abdomen: Bowel sounds active. Abdomen is soft without tenderness. External genitalia normal. Extremities: Upper extremities appear normal with good capillary refill good pulses normal motion. Left lower extremity is normal with intact pulses and no edema. She has no significant synovitis noted. No significant tenderness. Right lower extremity the right knee is wrapped with an elastic bandage following surgery this is not removed today. In her foot she has intact pulses and sensation and no significant edema. Good capillary refill in her right foot Const: Vital Signs, click to edit/add: Vital Signs - 24 hr 07/22/25 12:16 07/22/25 12:32 07/22/25 13:43 Temperature 36.7 C Pulse Rate 75 71 Pulse Rate [Pulse Oximeter] 74 Respiratory Rate 20 16 14 Blood Pressure 152/72 H 98/63 Blood Pressure [Ri ght Upper Arm] 168/71 H Pulse Oximetry 96 97 96 Oxygen Delivery Me thod Room Air Oxygen Flow Rate 07/22/25 14:01 07/22/25 14:05 07/22/25 14:32 Temperature Pulse Rate 74 74 Pulse Rate [Pulse Oximeter] Respiratory Rate 18 16 Blood Pressure 164/71 H 164/73 H Blood Pressure [Ri ght Upper Arm] Pulse Oximetry 96 97 97 Oxygen Delivery Me thod Oxygen Flow Rate 07/22/25 15:30 07/22/25 16:00 07/22/25 16:30 Temperature Pulse Rate 82 77 77 Pulse Rate [Pulse Oximeter] Respiratory Rate Blood Pressure Blood Pressure [Ri ght Upper Arm] Pulse Oximetry 95 97 96 Oxygen Delivery Me thod Oxygen Flow Rate 07/22/25 19:45 07/22/25 19:50 07/22/25 19:55 Temperature 36.9 C Pulse Rate 94 90 90 Pulse Rate [Pulse Oximeter] Respiratory Rate 18 18 18 Blood Pressure 160/59 H 166/61 H 166/66 H Blood Pressure [Ri ght Upper Arm] Pulse Oximetry 88 95 99 Oxygen Delivery Me thod Nasal Cannula Oxygen Flow Rate 3 07/22/25 20:00 07/22/25 20:05 07/22/25 20:10 Temperature Pulse Rate 88 92 89 Pulse Rate [Pulse Oximeter] Respiratory Rate 18 16 16 Blood Pressure 162/60 H 145/79 H 153/70 H Blood Pressure [Ri ght Upper Arm] Pulse Oximetry 99 93 98 Oxygen Delivery Me thod Room Air Oxygen Flow Rate 07/22/25 20:15 07/22/25 20:30 07/22/25 20:45 Temperature 36.6 C 36.8 C Pulse Rate 87 84 81 Pulse Rate [Pulse Oximeter] Respiratory Rate 17 22 Blood Pressure 156/74 H 130/78 133/89 Blood Pressure [Ri ght Upper Arm] Pulse Oximetry 93 93 94 Oxygen Delivery Me thod Room Air Room Air Room Air Oxygen Flow Rate 07/22/25 20:50 07/22/25 21:00 07/22/25 21:15 Temperature 36.8 C Pulse Rate 85 85 Pulse Rate [Pulse Oximeter] Respiratory Rate 18 17 Blood Pressure 143/63 H Blood Pressure [Ri ght Upper Arm] Pulse Oximetry 86 L 93 94 Oxygen Delivery Me thod Room Air Nasal Cannula Nasal Cannula Oxygen Flow Rate 1 1 07/22/25 21:30 07/22/25 21:45 07/22/25 22:00 Temperature 36.8 C Pulse Rate 85 84 Pulse Rate [Pulse Oximeter] Respiratory Rate 17 18 Blood Pressure 145/64 H 124/86 152/65 H Blood Pressure [Ri ght Upper Arm] Pulse Oximetry 97 94 Oxygen Delivery Me thod Nasal Cannula Nasal Cannula Oxygen Flow Rate 07/22/25 22:31 07/22/25 22:38 07/22/25 23:00 Temperature Pulse Rate 84 84 Pulse Rate [Pulse Oximeter] Respiratory Rate 17 17 Blood Pressure 137/63 140/67 H Blood Pressure [Ri ght Upper Arm] Pulse Oximetry 96 94 94 Oxygen Delivery Me thod Nasal Cannula Nasal Cannula Nasal Cannula Oxygen Flow Rate 0.5 0.5 0.5 07/22/25 23:30 07/23/25 00:33 07/23/25 01:30 Temperature 36.8 C Pulse Rate 79 71 66 Pulse Rate [Pulse Oximeter] Respiratory Rate 17 17 Blood Pressure 134/59 L 128/60 113/68 Blood Pressure [Ri ght Upper Arm] Pulse Oximetry 94 93 95 Oxygen Delivery Me thod Nasal Cannula Nasal Cannula Nasal Cannula Oxygen Flow Rate 0.5 0.5 0.5 07/23/25 02:30 07/23/25 07:00 07/23/25 07:45 Temperature 36.4 C 36.6 C Pulse Rate 69 62 Pulse Rate [Pulse Oximeter] Respiratory Rate 16 18 18 Blood Pressure 120/81 120/99 H Blood Pressure [Ri ght Upper Arm] Pulse Oximetry 94 95 Oxygen Delivery Me thod Room Air Room Air Oxygen Flow Rate 0 Labs Labs: Short CBC 07/22/25 07/23/25 Range/Units 13:10 07:45 WBC 15.70 H 16.00 H (4.50-11.00) K/uL Hgb 11.2 L 11.0 L (12.0-16.0) gm/dL Hct 34.0 34.0 (33.0-51.0) % Plt Count 263 264 (140-440) K/uL BMP 07/22/25 13:10 Sodium 136 Potassium 4.0 Chloride 107 Carbon Dioxide 20 BUN 20 Creatinine 0.7 Glucose 169 H Calcium 8.8 Assessment and Plan Assessment and plan (1) Acute arthritis: Problem comment: Acute monoarticular arthritis of the right knee. Concern for septic joint. Treat with vancomycin and ceftriaxone pending cultures. Status: Acute (2) Diabetes type 2, controlled: Status: Acute (3) Immunosuppression due to drug therapy: Problem comment: On chronic methotrexate. Hold methotrexate pending clinical course and cultures Status: Acute Plan 75-year-old female admitted to the hospital with an acute monoarticular arthritis of the right knee. Concern for septic arthritis. Arthroscopic washout of that knee has been done. Cultures are pending. Broad-spectrum antibiotic treatment with vancomycin and ceftriaxone pending cultures. Total Time Spent Total Time Spent: Total time spent today is 75 minutes in reviewing outside records, coordination of care, discussion with patient about and other providers ongoing management of monoarticular arthritis, rheumatoid arthritis, immunosuppression, disability.
[2025-07-23] MEDS: cefTRIAXone 2 GM in 0.9 % SODIUM CHLORIDE Mini-bag 100 ML IVPB (10:57)
[2025-07-23] MEDS: TRIAMCINOLONE ACETONIDE CREAM 0.1 % 1 APPLIC TOPICAL ×2 (15:29→22:10)
[2025-07-23] MEDS: INSULIN ASPART 100 UNIT/ML SUBCUT ×2 (17:41→22:25)
--- NOTE | 2025-07-23 17:53 | PM.ORPN ---
Subjective Subjective Time Seen by Provider: 17:53 Date Seen: 07/23/25 Principal diagnosis: Status post right knee arthroscopy, lavage and debridement Interval history: Cailin states she feels much better today than she did yesterday. Her pain level is much improved. She is having dinner currently. No nausea or vomiting. No fevers today. Ortho Exam Narrative Exam Narrative: Alert and oriented x3. Patient is in no acute distress. Converses without labored breathing. Hearing is grossly intact. Ambulates with a walker, pain with weight-bearing through the right leg. Examination of the right knee shows no erythema or warmth. No drainage. Large effusion is present. She is in a recliner currently and can raise her heel off the floor about 3 in. She is not able to straighten the leg. CMS intact right lower extremity. Calf is soft and nontender. Mild lower leg edema. Const Vital Signs, click to edit/add: Vital Signs - 24 hr 07/22/25 19:45 07/22/25 19:50 07/22/25 19:55 Temperature 98.4 F Pulse Rate 94 90 90 Respiratory Rate 18 18 18 Blood Pressure 160/59 H 166/61 H 166/66 H Pulse Oximetry 88 95 99 Oxygen Delivery Method Nasal Cannula Oxygen Flow Rate 3 07/22/25 20:00 07/22/25 20:05 07/22/25 20:10 Temperature Pulse Rate 88 92 89 Respiratory Rate 18 16 16 Blood Pressure 162/60 H 145/79 H 153/70 H Pulse Oximetry 99 93 98 Oxygen Delivery Method Room Air Oxygen Flow Rate 07/22/25 20:15 07/22/25 20:30 07/22/25 20:45 Temperature 97.9 F 98.2 F Pulse Rate 87 84 81 Respiratory Rate 17 22 Blood Pressure 156/74 H 130/78 133/89 Pulse Oximetry 93 93 94 Oxygen Delivery Method Room Air Room Air Room Air Oxygen Flow Rate 07/22/25 20:50 07/22/25 21:00 07/22/25 21:15 Temperature 98.2 F Pulse Rate 85 85 Respiratory Rate 18 17 Blood Pressure 143/63 H Pulse Oximetry 86 L 93 94 Oxygen Delivery Method Room Air Nasal Cannula Nasal Cannula Oxygen Flow Rate 1 1 07/22/25 21:30 07/22/25 21:45 07/22/25 22:00 Temperature 98.3 F Pulse Rate 85 84 Respiratory Rate 17 18 Blood Pressure 145/64 H 124/86 152/65 H Pulse Oximetry 97 94 Oxygen Delivery Method Nasal Cannula Nasal Cannula Oxygen Flow Rate 07/22/25 22:31 07/22/25 22:38 07/22/25 23:00 Temperature Pulse Rate 84 84 Respiratory Rate 17 17 Blood Pressure 137/63 140/67 H Pulse Oximetry 96 94 94 Oxygen Delivery Method Nasal Cannula Nasal Cannula Nasal Cannula Oxygen Flow Rate 0.5 0.5 0.5 07/22/25 23:30 07/23/25 00:33 07/23/25 01:30 Temperature 98.2 F Pulse Rate 79 71 66 Respiratory Rate 17 17 Blood Pressure 134/59 L 128/60 113/68 Pulse Oximetry 94 93 95 Oxygen Delivery Method Nasal Cannula Nasal Cannula Nasal Cannula Oxygen Flow Rate 0.5 0.5 0.5 07/23/25 02:30 07/23/25 07:00 07/23/25 07:45 Temperature 97.6 F 97.8 F Pulse Rate 69 62 Respiratory Rate 16 18 18 Blood Pressure 120/81 120/99 H Pulse Oximetry 94 95 Oxygen Delivery Method Room Air Room Air Oxygen Flow Rate 0 07/23/25 11:00 07/23/25 15:00 07/23/25 15:00 Temperature 97.9 F Pulse Rate 64 68 Respiratory Rate 16 18 18 Blood Pressure 117/98 H 109/50 L Pulse Oximetry 94 96 Oxygen Delivery Method Room Air Oxygen Flow Rate Assessment and Plan Assessment and plan (1) Rheumatoid arthritis: Problem details: Well managed rheumatoid arthritis on methotrexate. Status: Acute (2) Chondrocalcinosis of right knee: Status: Acute (3) Effusion, right knee: Status: Acute (4) Status post arthroscopy of right knee: Status: Acute (5) Acute arthritis: Problem details: Acute monoarticular arthritis of the right knee. Concern for septic joint. Treat with vancomycin and ceftriaxone pending cultures. Status: Acute Assessment and Plan: Arthroscopic findings are reviewed with Cailin. She has chondrocalcinosis of the right knee with significant crystals throughout the knee. Suggestive of pseudogout. Also grade 4/end-stage osteoarthritis throughout the entire medial femoral condyle and majority of the patella and trochlea. Grade 2 chondromalacia lateral compartment. Partial tearing of the medial meniscus. Crystal deposits within the ACL and PCL, however intact. 6 L of saline was flushed through the knee. The meniscus was debrided. Extensive debridement of the knee synovial tissue in all 3 compartments was performed as well. The fluid in her knee will resolve in time. Crystals and cultures will likely return approximately day 3. Gram stain shows no organisms seen. The bulky dressing is removed so she can work on range of motion much easier and perform her physical therapy. A waterproof dressing is applied. This can remain in place for 2 weeks. She can shower. Weight bear as tolerated on the right lower extremity. Ice, acetaminophen, oxycodone for pain as needed. Elevation of the right lower extremity as needed for swelling. She is encouraged to continue working on straight leg raises, for this is difficult today. She was unable to perform this at all yesterday so she has seen some improvement there. Continue IV antibiotics until cultures and crystals return. Note, dictation performed with voice recognition, and as a result, wrong word or sound like substitutions may have occurred. There may be areas in the script that have gone undetected. Please consider this when interpreting information found in the chart.
--- NOTE | 2025-07-23 18:48 | PC.NURSE ---
Nursing Care Hours: [id number] Pt this shift calm and cooperative, alert and oriented. Some word finding during conversation. Stable on room air. BP varies, see charting. Pain tolerable per pt. Did agree to acetaminophen later afternoon as justowriter operator observed pt wincing and limping with ambulation. Ice in use. DIAN wrap removed by PA. Dressing CDI. Pedal pulse strong. Insulin given per sliding scale. Low urine output. Pt voided x3 but missed the measuring hat the last two times. Encouraged to drink more. Eczema rash to chest and shoulders treated with scheduled cream.
[2025-07-23] MEDS: METFORMIN ER 500 MG 1000 MG PO (20:41)
[2025-07-23] MEDS: LOVASTATIN 20 MG TABLET PO (20:42)
[2025-07-23] MEDS: CHOLESTYRAMINE POWDER 4 GM PO (20:55)
[2025-07-23] MEDS: VANCOMYCIN 1 GM/200 ML 1 GM/200 ML PIGGYBACK IVPB (22:03)
[2025-07-24] VITALS (7 sets, daily range): BP systolic 129–158; BP diastolic 63–83; PULSE 58–75; RESP 16–20; TEMP 36.7–36.9; O2SAT 95–97
[2025-07-24] MEDS: ACETAMINOPHEN 325 MG TABLET 650 MG PO (04:28)
[2025-07-24 06:12] LABS: Hematocrit* 31.3 % (33.0-51.0); Hemoglobin* 10.0 gm/dL (12.0-16.0); Immature Granulocytes Pct Auto 0.2 %; Mean Corpuscular HGB Conc 32 gm/dL (32-36); Mean Corpuscular Hemoglobin 32 pg (26-34); Mean Corpuscular Volume 100 fL (80-100); RDW Coefficient of Variation % 13.6 % (11.5-15.5); Red Blood Count* 3.14 m/uL (4.00-5.20); White Blood Count* 13.40 K/uL (4.50-11.00)
[2025-07-24] MEDS: OMEPRAZOLE 20 MG CAPSULE DR PO (06:20)
[2025-07-24 06:21] LABS: Immature Granulocytes Abs Auto 0.00 K/uL (0.00-0.30); Lymphocytes Absolute Auto 1.20 K/uL (0.90-2.90); Slide Review Reflex No
--- NOTE | 2025-07-24 07:07 | PC.NURSE ---
Shift note ([id number]): Patient pleasant, alert and oriented. Mepilex dressing C,D&I. Ambulated to bathroom?with walker and assist of one. Active ice applied. Given PRN Tylenol for pain rated 3/10 with movement. Total urine output this shift 750mL. SCDs to bilateral feet. ??
[2025-07-24] MEDS: SERTRALINE 50 MG TABLET 25 MG PO (08:45)
[2025-07-24] MEDS: DICYCLOMINE HCL 10 MG CAPSULE 20 MG PO ×4 (08:45→20:49)
[2025-07-24] MEDS: CHOLESTYRAMINE POWDER 4 GM PO ×2 (08:45→20:49)
[2025-07-24] MEDS: FOLIC ACID 1 MG TABLET PO (08:45)
[2025-07-24] MEDS: TRIAMCINOLONE ACETONIDE CREAM 0.1 % 1 APPLIC TOPICAL ×3 (08:46→20:49)
[2025-07-24] MEDS: SENNOSIDES 1 TAB TABLET 2 TAB PO (08:46)
[2025-07-24] MEDS: LOSARTAN POTASSIUM 50 MG TABLET PO (08:46)
[2025-07-24] MEDS: VANCOMYCIN 1 GM/200 ML 1 GM/200 ML PIGGYBACK IVPB ×2 (09:35→20:50)
--- NOTE | 2025-07-24 10:30 | PM.IMPN1 ---
Assessment and Plan Assessment and plan (1) Acute arthritis: Problem comment: Acute monoarticular arthritis of the right knee. Concern for septic joint. Treat with vancomycin and ceftriaxone pending cultures. Increased synovial effusion today. Review with orthopedist about possible repeat arthroscopic washout Status: Acute (2) Immunosuppression due to drug therapy: Problem comment: On chronic methotrexate. Hold methotrexate pending clinical course and cultures Status: Acute (3) Status post arthroscopy of right knee: Status: Acute (4) Rheumatoid arthritis: Problem comment: Well managed rheumatoid arthritis on methotrexate. Status: Acute (5) Chondrocalcinosis of right knee: Problem comment: Crystal studies from synovial fluid pending Status: Acute Plan 75-year-old female with possible septic arthritis of the right knee being treated with IV antibiotics. Concern for increasing right knee effusion today. Consider repeat arthroscopic washout. Total Time Spent Total Time Spent: Total time spent is 40 minutes in coordination of care discussing with patient and other providers ongoing management of septic knee arthritis Subjective Date Seen: 07/24/25 Interval history: Cailin Trejo is a 75 year old female seen in consultation for management of acute monoarticular arthritis of the right knee. She was admitted yesterday and underwent right knee arthroscopic lavage and debridement with Dr. Cramer. He has requested consultation for management of acute and chronic medical problems. Patient reported being in her usual state of health until 3 days ago. At that time she started having right knee pain which was progressively getting worse. She had no trauma. She did have subjective fever chills but no documented fever. No previous history of acute arthritis but she does have rheumatoid arthritis treated with methotrexate. Two days ago she presented to our emergency department. There was an unsuccessful attempt at arthrocentesis. Radiographs of the knee were unremarkable. She was discharged with pain medication. Her knee pain continued to get worse and she was unable to ambulate so she returned to the Emergency Department yesterday. There was concern about a septic arthritis so she was taken to the OR by Dr. Cramer. Synovial fluid was cloudy with 58,117 white cells, 94% neutrophils and 2000 red cells. Crystal analysis is pending. G stain showed no organisms. 07/23/2025: She reports her knee pain is better today and she has been able to do partial weight-bearing. She has no other concerns at this time. 07/24/2025: She has no new concerns today. Still having a moderate amount of pain with ambulation. Synovial fluid testing for crystals pending. Cultures negative to date Exam Narrative: Exam Narrative: She is alert and appears in no distress. Right lower extremities examined. She has prominent synovial swelling of her right knee. Is warm to touch. Also mildly tender. Intact pulses and sensation distally. Const: Vital Signs, click to edit/add: Vital Signs - 24 hr 07/23/25 11:00 07/23/25 15:00 07/23/25 15:00 Temperature 36.6 C Pulse Rate 64 68 Respiratory Rate 16 18 18 Blood Pressure 117/98 H 109/50 L Pulse Oximetry 94 96 Oxygen Delivery Me thod Room Air Oxygen Flow Rate 07/23/25 19:25 07/23/25 22:12 07/23/25 22:12 Temperature 36.8 C 36.7 C Pulse Rate 70 62 Respiratory Rate 17 16 16 Blood Pressure 137/57 L 130/66 Pulse Oximetry 94 94 94 Oxygen Delivery Me thod Room Air Room Air Room Air Oxygen Flow Rate 07/24/25 02:10 07/24/25 07:00 07/24/25 07:00 Temperature 36.8 C 36.7 C Pulse Rate 73 63 Respiratory Rate 17 18 18 Blood Pressure 137/63 138/63 Pulse Oximetry 96 95 95 Oxygen Delivery Me thod Room Air Room Air Room Air Oxygen Flow Rate 0 07/24/25 07:00 Temperature Pulse Rate Respiratory Rate 18 Blood Pressure Pulse Oximetry Oxygen Delivery Me thod Oxygen Flow Rate Labs Labs: Laboratory Results - last 24 hr 07/24/25 05:51 WBC 13.40 H RBC 3.14 L Hgb 10.0 L Hct 31.3 L MCV 100 MCH 32 MCHC 32 RDW Coeff of Jacob 13.6 Plt Count 255 Neut % (Auto) 79.6 H Lymph % (Auto) 9.1 L [place] % (Auto) 10.4 Eos % (Auto) 0.4 Baso % (Auto) 0.3 Neut # (Auto) 10.70 H Lymph # (Auto) 1.20 [place] # (Auto) 1.40 H Eos # (Auto) 0.10 Baso # (Auto) 0.00 Abs Immat Gran (auto) 0.00 Imm/Tot Granulo (auto) 0.2 C-Reactive Protein 15.1 H
[2025-07-24] MEDS: LACTATED RINGERS 1000 ML 1,000 ML 125 ML IV (11:27)
[2025-07-24] MEDS: cefTRIAXone 2 GM in 0.9 % SODIUM CHLORIDE Mini-bag 100 ML IVPB (11:43)
--- NOTE | 2025-07-24 12:57 | PM.ORPN ---
Subjective Subjective Date Seen: 07/24/25 Principal diagnosis: Status post right knee arthroscopy, lavage and debridement 07/22/2025 Interval history: No fevers or chills. No rigors. No shortness of breath. No chest pain. Notices the knee is swollen, but not tremendous is painful, reportedly. Ortho Exam Narrative Exam Narrative: Again she wants supine on the hospital bed, comfortable. She is in no acute distress. No appreciable perspiration. She is comfortable. Cooperative with exam. Right knee exam shows recurrent knee effusion. No surrounding erythema. Mildly tender palpation on the right knee capsule. Able to do an active straight leg raise. ROM 0-45 degrees relatively pain-free and deeper flexion creates pressure. Neurologic intact all 5 dermatomes/myotomes. Surgical dressing still in place, Mepilex. Const Vital Signs, click to edit/add: Vital Signs - 24 hr 07/23/25 15:00 07/23/25 15:00 07/23/25 19:25 Temperature 97.9 F 98.2 F Pulse Rate 68 70 Respiratory Rate 18 18 17 Blood Pressure 109/50 L 137/57 L Pulse Oximetry 96 94 Oxygen Delivery Method Room Air Oxygen Flow Rate 07/23/25 22:12 07/23/25 22:12 07/24/25 02:10 Temperature 98.0 F 98.2 F Pulse Rate 62 73 Respiratory Rate 16 16 17 Blood Pressure 130/66 137/63 Pulse Oximetry 94 94 96 Oxygen Delivery Method Room Air Room Air Room Air Oxygen Flow Rate 07/24/25 07:00 07/24/25 07:00 07/24/25 07:00 Temperature 98.1 F Pulse Rate 63 Respiratory Rate 18 18 18 Blood Pressure 138/63 Pulse Oximetry 95 95 Oxygen Delivery Method Room Air Room Air Oxygen Flow Rate 0 07/24/25 11:00 Temperature 98.3 F Pulse Rate 58 L Respiratory Rate 16 Blood Pressure 144/66 H Pulse Oximetry 97 Oxygen Delivery Method Room Air Oxygen Flow Rate 0 Assessment and Plan Assessment and plan (1) Status post arthroscopy of right knee: Status: Acute (2) Pseudogout of knee: Status: Acute (3) Rheumatoid arthritis: Problem details: Well managed rheumatoid arthritis on methotrexate. Status: Acute (4) Chondrocalcinosis of right knee: Problem details: Crystal studies from synovial fluid pending Status: Acute (5) Effusion, right knee: Status: Acute (6) Diabetes type 2, controlled: Status: Acute Plan At this time, I certainly acknowledge that rheumatoid arthritis, pseudogout flare, or persistent septic arthritis could all be contributing to effusion recurrence in this right knee. However, without erythema or significant pain with gentle range of motion, eye without any systemic signs I have low concern for infectious etiology. Instead, I suspect this is more likely a pseudogout flare versus another arthropathy. However, I do think attempted re aspiration is worthwhile. Therefore, after obtaining consent, sterile ChloraPrep of the superolateral aspect right knee followed by topical ethyl chloride spray was performed. A 16 gauge needle was inserted into the suprapatellar pouch. 50 mL of primarily blood-like fluid was aspirated. This had no foul odor. No lumps present in the fluid, but rather relatively smooth. It was thick and therefore not clear. 80 mg Depo-Medrol was injected under the presumed diagnosis of pseudogout flare. I think room for the treatment course can continue/persist. Weight bear as tolerated right lower extremity. Range of motion as tolerated. Cultures still have returned with no growth again suggesting not infectious at this time. We did resend this aspiration for cell count to re-evaluate that part. She tolerated the procedure well. A Band-Aid was applied. Procedures Joint Aspiration/Injection Joint Asp./Inject. 1: Time out performed: Yes Side of body: right Joint aspirated: knee (Right) Details: without imaging Skin prep: Chlorhexidine Local anesthesia used: other (Topical ethyl chloride spray) Needle size used: Other (16 gauge) Fluid obtained: bloody Total fluid obtained (ml): 50 Medication injected, if any: other ([id number] mg) Patient tolerated procedure: well Complications: none
[2025-07-24 13:38] LABS: Mononuclear WBC Body Fluid* 3 %; Polynuclear WBC Body Fluid* 97 %; RBC, Body Fluid* 225000 Cells/uL; WBC, Body Fluid* 29915 Cells/uL
[2025-07-24 13:42] LABS: BF Total Volume* 15
[2025-07-24 13:43] LABS: BF Clarity* Cloudy
--- NOTE | 2025-07-24 15:06 | PC.NURSE ---
End of shift-- Pleasant and cooperative, alert and oriented patient. VSS and pt is afebrile. SPO2 maintained >90% on RA. Pain appears well managed with Oxycodone and Tylenol as needed. Right knee is significantly edematous. Dr. Cramer and DAVE Sarabia aspirated knee and gave a cortisone injection at bedside today and pt tolerated it well. Dressing to right knee is C/D/I and CMS is WNL. LS CTA. Pt does have a cough and she stated it is occasionally productive with creamy phlegm. BG 130 and 144 today. She tolerated a regular diet. BS+ x4 and pt is passing flatus, but stated no BM since . Education regarding constipation prevention provided. Pt took scheduled senna only. She was up to BR and PT with assist of 1, belt and walker and tolerated it fairly well. Did ambulate in hallway with PT, otherwise in room only. Bladder scanned for 250ml, then pt voided 250ml of clear, yellow urine following. Voided 450ml total today. Report to DOLLY Mcconnell.
[2025-07-24] MEDS: LOVASTATIN 20 MG TABLET PO (20:48)
[2025-07-24] MEDS: METFORMIN ER 500 MG 1000 MG PO (20:48)
[2025-07-24] MEDS: INSULIN ASPART 100 UNIT/ML SUBCUT (20:49)
[2025-07-25 02:44] VITALS: BP 164/78; PULSE 66; RESP 18; TEMP 36.6; O2SAT 97
--- NOTE | 2025-07-25 04:47 | PC.NURSE ---
shift note: pt is AOx4. pt denies pain and nausea. pt knee slightly edematous. no notable bruising. pt is up to BR w/ SBA. pt has > 4 BM, small & loose. Senna not given at HS. See EMAR. Active ice applied to R knee. dressing is C/D/I.
[2025-07-25 06:36] LABS: Hematocrit* 32.0 % (33.0-51.0); Hemoglobin* 10.0 gm/dL (12.0-16.0); Immature Granulocytes Abs Auto 0.03 K/uL (0.00-0.30); Immature Granulocytes Pct Auto 0.3 %; Mean Corpuscular HGB Conc 31 gm/dL (32-36); Mean Corpuscular Hemoglobin 31 pg (26-34); Mean Corpuscular Volume 100 fL (80-100); RDW Coefficient of Variation % 13.2 % (11.5-15.5); Red Blood Count* 3.19 m/uL (4.00-5.20); White Blood Count* 10.20 K/uL (4.50-11.00)
[2025-07-25 06:40] LABS: Lymphocytes Absolute Auto 0.50 K/uL (0.90-2.90); Slide Review Reflex No
[2025-07-25] MEDS: OMEPRAZOLE 20 MG CAPSULE DR PO (06:51)
[2025-07-25 07:54] VITALS: BP 173/85; PULSE 57; RESP 18; TEMP 36.6; O2SAT 97
--- NOTE | 2025-07-25 08:55 | PM.ORPN ---
Subjective Subjective Time Seen by Provider: 08:56 Date Seen: 07/25/25 Principal diagnosis: Status post right knee arthroscopy, lavage and debridement 07/22/2025 Interval history: Cailin is comfortable. She had aspiration and cortisone injection yesterday. She will be likely discharging to home today. Ortho Exam Narrative Exam Narrative: Alert and oriented x3. Patient is in no acute distress. Converses without labored breathing. Hearing is grossly intact. Ambulates with a walker. Examination of the right knee shows trace effusion. No erythema or warmth or sign of infection. Dressing covers the 2 portal wounds. Band-Aid over the lateral aspect of the knee from aspiration injection yesterday. CMS intact right lower extremity. Calves are soft and nontender. She is able to range the knee. Knee is not tender to palpation. Const Vital Signs, click to edit/add: Vital Signs - 24 hr 07/24/25 11:00 07/24/25 15:00 07/24/25 15:00 Temperature 98.3 F Pulse Rate 58 L Pulse Rate [Pulse Oximeter] Respiratory Rate 16 16 16 Blood Pressure 144/66 H Blood Pressure [Left Arm] Blood Pressure [Right Arm] Pulse Oximetry 97 96 Oxygen Delivery Method Room Air Room Air Oxygen Flow Rate 0 07/24/25 15:00 07/24/25 19:23 07/24/25 22:31 Temperature 98.3 F 98.4 F 98.5 F Pulse Rate Pulse Rate [Pulse Oximeter] 65 75 60 Respiratory Rate 16 18 20 Blood Pressure Blood Pressure [Left Arm] 129/73 156/67 H 158/83 H Blood Pressure [Right Arm] Pulse Oximetry 96 95 97 Oxygen Delivery Method Room Air Room Air Room Air Oxygen Flow Rate 0 07/24/25 23:00 07/24/25 23:00 07/25/25 02:44 Temperature 97.8 F Pulse Rate Pulse Rate [Pulse Oximeter] 66 Respiratory Rate 20 20 18 Blood Pressure Blood Pressure [Left Arm] 164/78 H Blood Pressure [Right Arm] Pulse Oximetry 97 97 Oxygen Delivery Method Room Air Room Air Oxygen Flow Rate 07/25/25 07:54 07/25/25 07:54 Temperature 97.8 F Pulse Rate Pulse Rate [Pulse Oximeter] 57 L Respiratory Rate 18 18 Blood Pressure Blood Pressure [Left Arm] Blood Pressure [Right Arm] 173/85 H Pulse Oximetry 97 97 Oxygen Delivery Method Room Air Room Air Oxygen Flow Rate Documenting provider has reviewed patient's vital signs: yes Assessment and Plan Assessment and plan (1) Pseudogout of knee: Status: Acute (2) Status post arthroscopy of right knee: Status: Acute (3) Immunosuppression due to drug therapy: Problem details: On chronic methotrexate. Hold methotrexate pending clinical course and cultures Status: Acute (4) Rheumatoid arthritis: Problem details: Well managed rheumatoid arthritis on methotrexate. Status: Acute (5) Chondrocalcinosis of right knee: Problem details: Crystal studies from synovial fluid pending Status: Acute Plan Cailin has improved greatly. She will likely discharge to home today. No growth thus far on cultures. Crystals have not returned yet. This is likely pseudogout. Weightbear as tolerated right lower extremity. Follow up with Orthopedics next week for suture removal. I do not anticipate narcotic pain medication will be needed at discharge.
[2025-07-25] MEDS: FOLIC ACID 1 MG TABLET PO (09:46)
[2025-07-25] MEDS: DICYCLOMINE HCL 10 MG CAPSULE 20 MG PO (09:46)
[2025-07-25] MEDS: SERTRALINE 50 MG TABLET 25 MG PO (09:46)
[2025-07-25] MEDS: LOSARTAN POTASSIUM 50 MG TABLET PO (09:47)
[2025-07-25] MEDS: CHOLESTYRAMINE POWDER 4 GM PO (09:47)
--- NOTE | 2025-07-25 09:54 | P.NUTNOTE_ITS ---
Nutrition Progress Note Progress Note Progress Note: RDN with nutrition education per patient request. Patient admitted for acute monoarticular arthritis of the right knee with concern for septic joint. She underwent Status post right knee arthroscopy, lavage and debridement 07/22/2025 and was found to have pseudogout flare. Current weight 89.358kg (194 lb); height 162.56cm (5ft 4in); BMI 33.8 kg/m2. Her weight has been stable recently. Current diet order is Regular and meal intakes have been adequate since admit. History includes type 2 diabetes. She reports her A1C was 5.9% recently. She is on metformin. RDN visited with patient whom reports confusion and frustration regarding recommendations told to her by a provider recently. She reports she was told to consume only 20 grams of carbs daily and to avoid fruits. She was frustrated with this and wanted to discuss nutrition further with a dietitian. She reports she has a history of IBS-D and is not able to tolerate some dairy products such as milk. She agreed to receive diet education. Diabetic diet education provided. Discussed basics of carbohydrate counting including sources of carbohydrates and serving sizes. Discussed the benefits of including an adequate amount of complex carbs daily including bowel regularity, satiety, blood sugar control, vitamins and minerals, and low calorie sources such as fruits. Discussed using the plate method for carbohydrate-controlled, balanced meals that include ? plate non- starchy vegetables, ? plate protein, and about 3 servings of carbohydrates per meal (fruit, whole grains, legumes, milk, yogurt) and 1-2 per snack. Handouts provided to support discussion. RDN contact information provided and encouraged patient to call with questions. RDN to follow up as needed. Did mention to patient that Medicare does cover a limited number of visits with a dietitian for type 2 diabetes each year. She can have her [facility] provider send us a referral if she is interested.
--- NOTE | 2025-07-25 11:42 | PM.DS1 ---
DS: Providers Provider Date Seen: 07/25/25 Date of admission: 07/22/25 20:30 Primary care physician: Not a Local Provider Admitting Clinician: Alfonso Cramer MD Attending Physician on discharge: Alfonso Cramer MD Date of Discharge: 07/25/25 DS: Diagnosis Discharge Diagnosis (1) Acute arthritis: Status: Acute Problem details: Acute monoarticular arthritis of the right knee. Concern for septic joint on admission. Treated with vancomycin and ceftriaxone. Cultures negative at 72 hours. Antibiotics stopped. (2) Pseudogout of knee: Status: Acute Problem details: Calcium pyrophosphate crystals found in synovial fluid. Clinically improved with corticosteroid injection on July 24 (3) Status post arthroscopy of right knee: Status: Acute Problem details: July [address] Cramer arthroscopic washout and debridement. (4) Immunosuppression due to drug therapy: Status: Acute Problem details: On chronic methotrexate. Hold methotrexate pending clinical course and cultures (5) Rheumatoid arthritis: Status: Acute Problem details: Well managed rheumatoid arthritis on methotrexate. (6) Chondrocalcinosis of right knee: Status: Acute Problem details: Crystal studies from synovial fluid pending (7) Diabetes type 2, controlled: Status: Acute DS: Summary Hospital Course Hospital Course: Cailin Trejo is a 75 year old female seen in consultation for management of acute monoarticular arthritis of the right knee. She was admitted July 22 and underwent right knee arthroscopic lavage and debridement with Dr. Cramer. He has requested consultation for management of acute and chronic medical problems. Patient reported being in her usual state of health until 3 days ago. At that time she started having right knee pain which was progressively getting worse. She had no trauma. She did have subjective fever chills but no documented fever. No previous history of acute arthritis but she does have rheumatoid arthritis treated with methotrexate. Two days ago she presented to our emergency department. There was an unsuccessful attempt at arthrocentesis. Radiographs of the knee were unremarkable. She was discharged with pain medication. Her knee pain continued to get worse and she was unable to ambulate so she returned to the Emergency Department yesterday. There was concern about a septic arthritis so she was taken to the OR by Dr. Cramer. Synovial fluid was cloudy with 58,117 white cells, 94% neutrophils and 2000 red cells. Crystal analysis is pending. G stain showed no organisms. Patient was treated with vancomycin and ceftriaxone for possible septic knee. She had recurrence of the swelling of her knee and underwent arthrocentesis on July 24 which showed primarily bloody synovial fluid. At that time she received cortisone injection for presumed pseudogout. Since then she is reporting her pain has resolved. She is ambulating well. At 72 hours her synovial fluid cultures are negative. Status at Discharge Functional status at discharge: uses cane/walker Overall status at discharge: patient is back to baseline Time Spent with Patient Time attestation: Total time spent providing and/or coordinating discharge services: Time spent: Greater than 30 minutes Exam Narrative: Exam Narrative: She is alert appears in no distress. Right knee today is mildly swollen but less so than yesterday. There is no tenderness. No erythema or warmth. Distally she has no edema and intact motion and strength and sensation and pulses in her feet Const: Vital Signs, click to edit/add: Vital Signs - 24 hr 07/24/25 15:00 07/24/25 15:00 07/24/25 15:00 Temperature 36.8 C Pulse Rate [Pulse Oximeter] 65 Respiratory Rate 16 16 16 Blood Pressure [Le ft Arm] 129/73 Blood Pressure [Ri ght Arm] Pulse Oximetry 96 96 Oxygen Delivery Me thod Room Air Room Air Oxygen Flow Rate 0 07/24/25 19:23 07/24/25 22:31 07/24/25 23:00 Temperature 36.9 C 36.9 C Pulse Rate [Pulse Oximeter] 75 60 Respiratory Rate 18 20 20 Blood Pressure [Le ft Arm] 156/67 H 158/83 H Blood Pressure [Ri ght Arm] Pulse Oximetry 95 97 Oxygen Delivery Me thod Room Air Room Air Oxygen Flow Rate 07/24/25 23:00 07/25/25 02:44 07/25/25 07:54 Temperature 36.6 C Pulse Rate [Pulse Oximeter] 66 Respiratory Rate 20 18 18 Blood Pressure [Le ft Arm] 164/78 H Blood Pressure [Ri ght Arm] Pulse Oximetry 97 97 97 Oxygen Delivery Me thod Room Air Room Air Room Air Oxygen Flow Rate 07/25/25 07:54 Temperature 36.6 C Pulse Rate [Pulse Oximeter] 57 L Respiratory Rate 18 Blood Pressure [Le ft Arm] Blood Pressure [Ri ght Arm] 173/85 H Pulse Oximetry 97 Oxygen Delivery Me thod Room Air Oxygen Flow Rate Documenting provider has reviewed patient's vital signs: yes DS: Data Data Completed and Pending Labs on day of discharge: Labs from last 24 hours 07/25/25 07/24/25 07/22/25 06:16 12:52 15:50 WBC 10.20 RBC 3.19 L Hgb 10.0 L Hct 32.0 L MCV 100 MCH 31 MCHC 31 L RDW Coeff of Jacob 13.2 Plt Count 299 Neut % (Auto) 91.2 H Lymph % (Auto) 4.5 L Ransom % (Auto) 3.8 Eos % (Auto) 0.0 Baso % (Auto) 0.2 Neut # (Auto) 9.30 H Lymph # (Auto) 0.50 L Ransom # (Auto) 0.40 Eos # (Auto) 0.00 Baso # (Auto) 0.02 Abs Immat Gran (auto) 0.03 Imm/Tot Granulo (auto) 0.3 C-Reactive Protein 6.6 H Fluid Volume 15 Fluid Color Grossly Bloody A Fluid Appearance Cloudy A Fluid WBC 14743 Fluid RBC [id number] Fluid Polynuclear WBCs 97 Fluid Mononuclear WBCs 3 Fluid Crystal ID See Scanned Report Preliminary micro results at discharge 07/22/25 15:50 Aerobic Culture - Preliminary Synovial Fluid NO GROWTH AFTER 72 HOURS 07/22/25 14:50 Blood Culture - Preliminary Blood NO GROWTH AFTER 48 HOURS 07/22/25 14:50 Blood Culture - Preliminary Blood NO GROWTH AFTER 48 HOURS Imaging Knee x-ray: Radiologist's impression: INDICATION: Pain and swelling none otherwise specified. COMPARISON: 07/21/2025 TECHNIQUE: Three views of the right knee. FINDINGS: New right joint effusion of undetermined etiology/clinical significance. Correlate with the patient`s clinical history and status. 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 No fracture or dislocation. IMPRESSION: New right joint effusion of undetermined etiology/clinical significance. Correlate with the patient`s clinical history and status. Discharge Plan Discharge Disposition: Home, Self-Care Date of Admission: 07/22/25 20:30 Attending Provider on Discharge: Marc Albright Primary Care Provider: Provider,Not a Local Condition: Stable Anticipated Discharge Date/Time: 07/25/25 08:34 Discharge Medications: Continued clobetasol 0.05 % cream 1 applic topical BID omeprazole 20 mg tablet,delayed release (DR/EC) 20 mg PO DAILY losartan 50 mg tablet 50 mg PO DAILY methotrexate sodium 2.5 mg tablet 12.5 mg PO .thursday lovastatin 20 mg tablet 20 mg PO HS metformin 500 mg tablet extended release 24 hr 1,000 mg PO HS hydrochlorothiazide 12.5 mg tablet 12.5 mg PO DAILY triamcinolone acetonide 0.1 % cream 1 applic topical 3XD dicyclomine 20 mg tablet 20 mg PO QID sertraline 25 mg tablet 25 mg PO QAM folic acid 1 mg tablet 1 mg PO DAILY Cholestyramine Light 4 gram powder in packet 4 g PO BID Changed Calcium 500 mg 1,000 mg PO DAILY Qty: 100 0RF Discharge Orders: Discharge Order (Routine); Ordered 07/25/25 Ordered By: Marc Albright Patient Education: Pseudogout (GEN), General Anesthesia (DC), Joint Aspiration (DC), Knee Arthroscopy (DC), Operative Knee Arthroscopy (DC) Additional Instructions: Make Appointment with Maria Dolores next week for wound check. Phone number for orthopedic [place] [phone]. Please return sooner if needed. Activity Level: Activity as Tolerated and Weight Bearing as Tolerated Activity Detail: Weightbear as tolerated right lower extremity. Dressing is waterproof. May shower when safe to do so. You can leave this on for 2 weeks or until you see orthopedics. Frequent Ambulation, Range of motion and strengthening are encouraged. Do not drive. Return to driving when safe to do so and have full use of both extremities and when you are no longer taking narcotic pain medication. Ice and elevation without restriction right lower extremity. Elevate as needed for swelling. No restriction on activity. Discharge Diet: Heart Healthy (2 gm sodium, low fat) Follow Up Appointments: Maria Dolores Glynn PAJo AnnC [Physician Library Paraprofessional, Orthopedics] - 07/31/25 8:30 am Referral Note: [place] Location Provider,Not a Local [Primary Care Provider, Family Practice] Referral Note: See your doctor next week, August 01, at previously scheduled appointment Forms: [email or web address] Info Instructions
--- NOTE | 2025-07-25 13:00 | PC.NURSE ---
The patient discharged home with her this AM. All instructions were reviewed. R knee dressing is CDI, some edema noted. The patient reports no pain to her knee. [place] ALEBRTO BSN
== END 2025-07-25 11:30 | disposition home or self-care (01) | DRG 488 ==
LOC: ED 18:06 → SS 18:35 → MEDSURG 20:50 → SS 07-23 08:38 → MEDSURG 07-23 08:38
PROVIDERS: Family Medicine; Physician Assistant; Admitting Provider Orthopaedic Surgery Sports Medicine; Emergency Provider Family Medicine; Visit Provider Orthopaedic Surgery Sports Medicine
PROC: 0SBC4ZZ Excision of Right Knee Joint, Percutaneous Endoscopic Approach (ICD-10-PCS; CPT 29870; principal; 2025-07-22 18:30)
DX: M11.261 Other chondrocalcinosis, right knee (principal); D84.821 Immunodeficiency due to drugs; M13.161 Monoarthritis, not elsewhere classified, right knee; M06.9 Rheumatoid arthritis, unspecified; M65.861 Other synovitis and tenosynovitis, right lower leg; M23.203 Derangement of unspecified medial meniscus due to old tear or injury, right knee; Z79.631 Long term (current) use of antimetabolite agent; I10 Essential (primary) hypertension; E11.9 Type 2 diabetes mellitus without complications; F41.8 Other specified anxiety disorders; Z79.84 Long term (current) use of oral hypoglycemic drugs; E78.5 Hyperlipidemia, unspecified
CPT/HCPCS: 01400; 36415; 51798; 73560; 80048; 82962; 83605; 84550; 85025; 86140; 87040; 87070; 87075; 87186; 87205; 89051; 89060; 93005; 94761; 96374; 97110; 97116; 97161; 97530; 99100; 99140; 99285; A9270; J0330; J0690; J0696; J1100; J1171; J2250; J2405; J2704; J3010; J3375; J3490; J7120